=== PATIENT | female | born 1945 | race Caucasian/White ===

== ENCOUNTER → 2017-03-23 08:24 | Outpatient (CLI) | payer MEDICARE, OTHER, SELFPAY ==
[2017-03-13 08:24] VITALS: BP 150/88; BMI 48.2
== END ==
PROVIDERS: Family Provider Family Medicine; PCP Family Medicine; Visit Provider Surgery
DX: R92.8 Other abnormal and inconclusive findings on diagnostic imaging of breast (principal)

== ENCOUNTER → 2017-05-08 13:07 | Outpatient (CLI) | payer MEDICARE, OTHER, SELFPAY ==
[2017-05-08 08:29] LABS: Absolute Lymphocyte Count 5.17 X10^3/ul (0.83-4.51); Absolute Neutrophil Count 1.5 X10^3/uL (2.0-7.7); Basophil# 0.01 X10^3/uL; Basophil% 0.1 % (0-1); Eosinophil# 0.03 X10^3/uL; Eosinophils% 0.4 % (0-5); Lymphocyte # 5.17 X10^3/ul (4.0); Lymphocyte % 76.4 % (19-41); Mean Corp Hgb Conc 31.4 g/gl (32-36); Mean Corpuscular Hgb 30.4 pg (27.0-32.0); Mean Corpuscular Volume 96.7 fL (81-99); Mean Platelet Vol. 10.4 fl (6.2-12.0); Monocyte# 0.11 X10^3/uL; Monocyte% 1.6 % (0-10); Neutrophil # 1.45 X10^3/uL (2.7-7.7); Neutrophil % 21.5 % (47-70); Platelet Count 169 K/mm3 (150-450); RBC Distribution Width CV 17.3 % (11.6-14.6); RBC Distribution Width SD 58.3 fl (35.1-43.9); Red Blood Count 3.62 M/mm3 (4.2-5.4); White Blood Count 6.8 K/mm3 (4.4-11.0)
[2017-05-08 08:33] LABS: AST(SGOT) 28 U/L (15-37); Alanine Aminotransfer ALT/SGPT 35 U/L (13-56); Albumin, Serum 3.1 g/dL (3.2-5.0); Alkaline Phosphatase 72 U/L (45-117); Anion Gap 9 (5-15); BUN 22 mg/dL (7-18); BUN/Creat Ratio 27.6 RATIO (10-20); Calcium,Total 8.8 mg/dL (8.5-10.1); Chloride 102 mmol/L (98-107); EST Glomerular Filtration Rate 76 mL/min (>60); Est Glom Filt Rate - Afr Amer 92 mL/min (>60); Globulin 3.1 g/dL (2.2-4.2); Glucose 231 mg/dL (74-106); LDH 165 U/L (84-246); Potassium 3.7 mmol/L (3.5-5.1); Protein, Total 6.2 g/dL (6.4-8.2); Sodium Level 140 mmol/L (136-145)
[2017-05-08 08:42] LABS: Reactive Lymphocyte 1+
[2017-05-08 08:43] LABS: Polychromasia 1+
[2017-05-08 08:44] LABS: Anisocytosis 1+; Differential Indicated SCAN CRITERIA MET; POSITIVE COUNT NO; POSITIVE DIFFERENTIAL YES; POSITIVE MORPHOLOGY NO
[2017-05-08 09:23] LABS: Cholesterol 109 mg/dL (200); High Density Lipoprotein 31 mg/dL; Triglycerides 204 mg/dL; Very Low Density Lipoprotein 41 mg/dL (5-40)
[2017-05-08 16:06] LABS: Xtra Tube EP Lab EXTRA TUBE
== END ==
PROVIDERS: Family Provider Family Medicine; PCP Family Medicine; Visit Provider Internal Medicine Medical Oncology
DX: C50.911 Malignant neoplasm of unspecified site of right female breast (principal); Z85.42 Personal history of malignant neoplasm of other parts of uterus; E11.65 Type 2 diabetes mellitus with hyperglycemia; Z79.4 Long term (current) use of insulin
CPT/HCPCS: 80053; 80061; 83615; 85025

== ENCOUNTER → 2017-05-24 09:55 | Outpatient (CLI) | payer MEDICARE, OTHER, SELFPAY ==
--- NOTE | 2017-05-24 09:59 | NM_ITS ---
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 WHOLE BODY 99m Tc MDP RADIONUCLIDE BONE SCINTIGRAPHY COMPARISON: Previous whole body bone scintigraphy study dated 12/13/2016 FINDINGS: Following the intravenous administration of 26.0 mCi of 99m Tc MDP, whole body bone images reveal: 1. Increased radiopharmaceutical concentration is newly defined in the left proximal femoral diaphysis, right-left posterior ilium, persistently visualized in the right posterior eighth rib, distal right fibular diaphysis decreased on the current examination, redemonstrated in the thoracic and lumbar spine, left mid humeral diaphysis, the proximal-mid sternum, the right and left distal femoral diaphyses. 2. Facilitated uptake is defined in the bilateral shoulders, upper cervical spine posteriorly on the right, right and left knee articulations, both ankles, the left midfoot and forefoot bilaterally. 3. The remaining skeletal structures are scintigraphically unremarkable with normal-appearing renal images and urinary bladder activity identified. NM/Bone Scan Whole Body IMPRESSION: 1. The increased radiopharmaceutical concentration newly identified in the left proximal femur, right and left posterior ilium and redemonstrated and additional axial and appendicular skeletal foci is consistent with osseous metastatic disease. 2. 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 3. Overall compared to the previous pole body bone scintigraphy study dated 12/13/2016, there is both persistent and newly visualized appendicular and axial skeletal metastasis on the present examination. Electronically Signed: Salvador Garcia DO at 12:58 EDT Tel , Service support ,
--- NOTE | 2017-05-24 14:10 | ECHOD_ITS ---
Reason For Study: PRE CHEMO Procedure This was a 2D Doppler, Color Flow transthoracic echocardiogram. Exam performed in department. Left Ventricle Normal size and thickness. The estimated ejection fraction is 60 %. Stage 1 diastolic dysfunction. No regional wall motion abnormalities noted. Right Ventricle Normal size and thickness. Normal systolic function. Atria Normal left atrium. Normal right atrium. Normal atrial septum. Mitral Valve The mitral valve is structurally normal. No prolapse or stenosis seen. Tricuspid Valve Normal tricuspid valve. Unable to estimate RV systolic pressure/pulmonary artery pressure due to technically difficult study. Aortic Valve Trisinus/trileaflet aortic valve. Aortic sclerosis, no stenosis. Trivial aortic valve insufficiency. Pulmonic Valve Normal pulmonic valve. Great Vessels Normal aortic root. Normal arch. Normal inferior vena cava. Inferior vena cava collapse with sniff. Pericardium/Pleural No pericardial effusion. MMode/2D Measurements & Calculations LVIDd: 4.2 cm IVSd: 0.71 cm Ao root diam: 3.1 cm LVIDs: 3.0 cm LVPWd: 0.89 cm RVDd: 2.3 cm FS: 29.5 % LAV(MOD-bp): 32.9 ml LA A4 area: 10.7 cm2 RA A4 area: 6.9 cm2 LAV(MOD-bp) Indexed: 15.6 ml/m2 LAV(MOD-sp2): 44.1 ml LAV(MOD-sp4): 22.5 ml Doppler Measurements & Calculations MV E max ge: 73.5 cm/sec Lat Peak E' Ge: 11.0 cm/sec Med Peak E' Ge: 7.3 cm/sec MV A max ge: 86.4 cm/sec E/E' lat: 6.7 E/E' med: 10.1 MV E/A: 0.85 Ao V2 max: 159.0 cm/sec LV V1 max: 107.5 cm/sec Ao max P.1 mmHg LV V1 max P.7 mmHg Interpretation Summary The estimated ejection fraction is 60 %. Stage 1 diastolic dysfunction. Unable to estimate RV systolic pressure/pulmonary artery pressure due to technically difficult study. Compared to echo report dated 02/24/2017, no appreciable changes noted. The study was technically difficult. Ordering Physician: David Arango Referring Physician: SISSY KOHLER Performed By: Beba Miranda, ESTHERCS, RVT
== END ==
PROVIDERS: Family Provider Family Medicine; PCP Family Medicine; Visit Provider Internal Medicine Medical Oncology
DX: Z01.818 Encounter for other preprocedural examination (principal); C50.911 Malignant neoplasm of unspecified site of right female breast
CPT/HCPCS: 78306; 93306

== ENCOUNTER → 2017-06-05 09:28 | Outpatient (CLI) | payer MEDICARE, OTHER, SELFPAY ==
[2017-05-30 11:02] VITALS: BMI 46.8
--- NOTE | 2017-06-05 10:00 | PET_ITS ---
EXAMINATION: FDG PET CT INDICATIONS: A 71-year-old female with reported history of carcinoma of the breast, endometrial carcinoma and chronic lymphocytic leukemia presenting for restaging examination. COMPARISON EXAMINATION: Whole body bone scintigraphy study report dated 05/24/17. INDEX LESION SIZE SUV INTERPRETATION Appendicular, axial skeletal structures 3.1 (max) Fulfills quantitative criteria for viable osseous neoplasm TECHNIQUE: Following the intravenous administration of 14.8 mCi of F-18 deoxyglucose via the MediPort, multiplanar image acquisitions of the neck, chest, abdomen and pelvis to level of mid thigh, obtained at one hour post radiopharmaceutical administration contemporaneously interpreted with the current CT of the neck, chest, abdomen and pelvis to level of mid thigh, dated 06/05/17 via coregistration and whole body bone scintigraphy study report dated 05/24/17 reveal: SERUM GLUCOSE LEVEL: 172 mg/dl. HEIGHT: 62 inches. WEIGHT: 250 lbs. FINDINGS: 1. Increased glucose metabolism is defined in the proximal sternum, bilateral proximal and mid femoral diaphysis, right posterior ilium, eighth-eleventh thoracic and the second-third lumbar vertebrae demonstrating a calculated maximum standard uptake value of 3.1. Mixed sclerotic-lytic changes are noted in the majority of locations on review of CT of the neck-pelvis dated 06/05/17. 2. Normal physiologic distribution of the radiopharmaceutical is apparent in the hepatic (4.6) and splenic parenchyma, both renal units, bladder and visualized intestinal tract. There is uniform distribution of the radiopharmaceutical concentration compared on the cerebellar hemispheres and cerebral cortex. Diffuse intestinal tract activity is noted throughout all four quadrants of the abdominal-pelvic retroperitoneum, mesentery consistent with normal physiologic distribution of the radiopharmaceutical. Pertinent CT findings are as follows. CHEST: Ljhd-R-Leya-MediPort placement is noted. Atherosclerotic calcification is defined in the thoracic aorta without evidence of dilatation, aneurysm formation. Coronary arterial calcification is observed. Multiple calcifications are noted throughout the right breast. Right-left axillary soft tissue densities with fatty hilus formation are ametabolic. There are no parenchymal densities-nodules noted in the right-left hemithorax demonstrating discernible, quantitatively significant increased glucose metabolism. ABDOMEN AND PELVIS: Atherosclerotic calcification is defined in the abdominal aorta without evidence of dilatation, aneurysm formation. Pelvic arterial calcification is observed. The gallbladder is surgically absent. The uterus is not identified. Colonic diverticulosis is defined. Surgical clips are noted in the bilateral lower hemipelvis. Calcified and noncalcified densities manifest in the subcutaneous fat in the bilateral posterior hemipelvis are non-glucose avid. SKELETAL: Mixed sclerotic-lytic change is noted throughout the visualized appendicular, axial skeletal structures as previously described with varying degrees of multifocal quantitatively significant increased glucose metabolism. PET/PET/CT Tumor Base -Thigh Subs IMPRESSION: 1. ABNORMAL EXAMINATION INDICATIVE OF MALIGNANT VIABLE NEOPLASM. 2. Increased glucose concentration observed in the appendicular, axial skeletal structures fulfills quantitative criteria for viable osseous neoplasm. (Emerita et al, Clinical Nuclear Medicine 29:161, 2004). 3. The discrepancy between findings on radionuclide bone scintigraphy and FDG PET CT imaging are explained by FDG avidity for primarily lytic, mixed lytic-sclerotic osseous metastasis, whereas conventional bone scintigraphy, NaF whole body PET bone CT scintigraphy are typically associated with primary osteoblastic skeletal metastatic disease. (Andreas et al, Journal of Nuclear Medicine 33:1280, 2006). Electronic Signature Salvador Garcia D.O. Electronically Signed: Slavador Garcia DO at 23:50 EDT Tel , Service support ,
== END ==
PROVIDERS: Family Provider Family Medicine; PCP Family Medicine; Visit Provider Internal Medicine Medical Oncology
DX: C50.411 Malignant neoplasm of upper-outer quadrant of right female breast (principal); Z85.42 Personal history of malignant neoplasm of other parts of uterus
CPT/HCPCS: 78815; A9552

== ENCOUNTER → 2017-07-24 11:25 | Outpatient (CLI) | payer MEDICARE, OTHER, SELFPAY ==
[2017-05-30 11:02] VITALS: BMI 46.8
--- NOTE | 2017-07-24 11:30 | RAD_ITS ---
STUDY: X-RAY CHEST REASON FOR EXAM: Female, 71 years old. Cough, weakness, iron deficiency anemia, patient has Hx of breast carcinoma, endometrial carcinoma, and CLL TECHNIQUE: Frontal and lateral views of the chest. COMPARISON: CT chest DEC 21 2016 FINDINGS: Chronic appearing increased interstitial lung markings. There is a left Port-A-Cath and/or mediport in place. The tip is in the superior vena caval - atrial junction. There is an elevated right hemidiaphragm. There is no demonstrated pleural abnormality. Normal heart size. Normal mediastinum and clayton. Normal visualized pulmonary arteries. There is atherosclerotic calcification of the aortic arch with tortuosity. There are diffuse degenerative changes of the visualized thoracic spine. There is degenerative osteoarthritis of the bilateral shoulders. There is no demonstrated abnormality of the visualized soft tissue structures of the upper abdomen. RAD/Chest PA and Lateral IMPRESSION: There are no acute findings. Electronically Signed: Romero Diana MD at 20:48 EDT , Service support ,
== END ==
PROVIDERS: Family Provider Family Medicine; PCP Family Medicine; Visit Provider Internal Medicine Medical Oncology
DX: R05 Cough (principal); R53.1 Weakness; D50.9 Iron deficiency anemia, unspecified
CPT/HCPCS: 71046

== ENCOUNTER → 2017-08-11 07:24 | Outpatient (CLI) | payer MEDICARE, OTHER, SELFPAY ==
[2017-05-30 11:02] VITALS: BMI 46.8
--- NOTE | 2017-08-11 07:27 | NM_ITS ---
CLINICAL: 71-year-old female with reported history of carcinoma of the breast. WHOLE BODY 99m Tc MDP RADIONUCLIDE BONE SCINTIGRAPHY COMPARISON: Previous whole body bone scintigraphy study dated 05/24/2017 FINDINGS: Following the intravenous administration of approximately 25.0 mCi of 99m Tc MDP, whole body bone images reveal: 1. Multiple foci of increased radiopharmaceutical concentration are persistently visualized appendicular and axial skeletal structures with a decrease in the overall number and intensity of uptake and defined scintigraphic abnormalities. 2. Facilitated uptake is currently visualized in the medial tibial compartments of both knees, bilateral midfoot. 3. The remaining skeletal structures are scintigraphically unremarkable with normal-appearing renal images and urinary bladder activity identified. NM/Bone Scan Whole Body IMPRESSION: 1. The increase in radiopharmaceutical concentration redemonstrated in the appendicular and axial skeletal structures remains consistent with osteoblastic turnover associated with skeletal metastatic disease. The majority of sites demonstrate an interval decrease in the intensity of uptake on the present examination. 2. Degenerative arthritis is expressed in the bilateral knees, the right-left midfoot 3. There is interval resolution of additional previously defined skeletal abnormalities. 4. Overall compared to the previous whole body bone scintigraphy study dated 05/24/2017, there is continued visualization of appendicular and axial skeletal metastasis with a decrease in the total number as well as the intensity of uptake in persistently visualized abnormalities commensurate with interim improvement. Electronically Signed: Salvador Garcia DO at 12:56 EDT Tel , Service support ,
== END ==
PROVIDERS: Visit Provider Internal Medicine Medical Oncology
DX: C50.411 Malignant neoplasm of upper-outer quadrant of right female breast (principal); C79.51 Secondary malignant neoplasm of bone; R53.1 Weakness; R05 Cough
CPT/HCPCS: 78306

== ENCOUNTER → 2018-02-12 10:04 | Outpatient (CLI) | payer MEDICARE, OTHER, SELFPAY ==
[2017-05-30 11:02] VITALS: BMI 46.8
[2017-11-20 11:30] VITALS: BMI 47.2
--- NOTE | 2018-02-12 10:06 | NM_ITS ---
CLINICAL: 72-year-old female with reported history of primary breast carcinoma metastatic to bone. WHOLE BODY 99m Tc MDP RADIONUCLIDE BONE SCINTIGRAPHY COMPARISON: Previous whole body bone scintigraphy study dated 08/11/2017 FINDINGS: Following the intravenous administration of 26.6 mCi of 99m Tc MDP, whole body bone images reveal: 1. An increase in in the intensity of radiopharmaceutical concentration is defined in the right posterior eighth rib relative to the previous examination dated 08/11/2017. 2. Redefined multifocal increased tracer uptake is noted in the visualized appendicular and axial skeletal structures with minimal change in the overall number and intensity of uptake. 3. Facilitated uptake remains apparent in the bilateral knees and visualized left midfoot, presently demonstrated in the dorsal medial compartments of both ankles. 4. The remaining skeletal structures are scintigraphically unremarkable with normal-appearing renal images and urinary bladder activity identified. NM/Bone Scan Whole Body IMPRESSION: 1. The increase in radiopharmaceutical concentration multifocally demonstrated in the axial and appendicular skeletal structures remains consistent with osseous metastatic disease. There is an increase in the overall degree of osteoblastic turnover noted in the right posterior eighth rib. 2. Degenerative arthritis appears currently expressed in the bilateral ankles, right and left knees and left midfoot. 3. Overall compared to the previous whole body bone scintigraphy study dated 08/11/2017, there is an increase in the apparent degree of osteoblastic turnover limited to the right posterior eighth rib. If FLAIR phenomena and is a diagnostic consideration, repeat whole body bone scintigraphy in 9-12 weeks is recommended. (Ramírez et al, Radiology 175: 229, 1990). Electronically Signed: Salvador Garcia DO at 22:27 EST Tel , Service support ,
== END ==
PROVIDERS: Referring Provider Internal Medicine Medical Oncology; Visit Provider Internal Medicine Medical Oncology
DX: C79.51 Secondary malignant neoplasm of bone (principal); C50.911 Malignant neoplasm of unspecified site of right female breast
CPT/HCPCS: 78306

== ENCOUNTER → 2018-05-14 | Outpatient (CLI) | payer MEDICARE, OTHER, SELFPAY ==
[2017-05-30 11:02] VITALS: BMI 46.8
[2018-02-19 13:39] VITALS: BMI 46.3
--- NOTE | 2018-05-14 09:54 | NM_ITS ---
CLINICAL: 72-year-old female with reported history of carcinoma of the breast. WHOLE BODY 99m Tc MDP RADIONUCLIDE BONE SCINTIGRAPHY COMPARISON: Prior whole body bone scintigraphy study dated 02/12/2018 FINDINGS: Following the intravenous administration of 25.2 mCi of 99m Tc MDP, whole body bone images reveal: 1. Relatively unchanged increased radiopharmaceutical concentration is defined in the axial skeletal structures with minimal change in the overall number and anatomic localization of the scintigraphic abnormalities. 2. Enhanced tracer concentration remains apparent in the bilateral shoulders, right and left knees. 3. The remaining skeletal structures are scintigraphically unremarkable with normal-appearing renal images and urinary bladder activity identified. Facilitated radiotracer uptake remains apparent in the bilateral distal femoral diaphysis. NM/Bone Scan Whole Body IMPRESSION: 1. The increase in radiopharmaceutical concentration redemonstrated in the axial skeleton remains most consistent with osseous metastatic disease. Bilateral distal femoral diaphyseal increased uptake may be further investigated with plain film radiography. 2. Facilitated radiotracer distribution currently demonstrated in the bilateral shoulders, right and left knees is commensurate with degenerative arthritis. 3. Overall compared to the previous whole body bone scintigraphy study dated 02/12/2018, there is no significant interval change. Electronically Signed: Salvador Garcia DO at 23:39 EDT Tel , Service support ,
== END | disposition home or self-care (01) ==
LOC: NM 09:52
PROVIDERS: Family Provider Family Medicine; PCP Family Medicine; Referring Provider Internal Medicine Medical Oncology; Visit Provider Internal Medicine Medical Oncology
DX: C50.911 Malignant neoplasm of unspecified site of right female breast (principal); C79.51 Secondary malignant neoplasm of bone
CPT/HCPCS: 78306

== ENCOUNTER → 2018-05-23 13:53 | Outpatient (CLI) | payer MEDICARE, OTHER, SELFPAY ==
[2017-05-30 11:02] VITALS: BMI 46.8
[2018-05-21 13:33] VITALS: BMI 46.4
--- NOTE | 2018-05-23 13:56 | BI_ITS ---
MAMMOGRAPHY - BILATERAL DIAGNOSTIC REASON FOR EXAM: Female, 72 years old. Prior right lumpectomy and radiation and chemotherapy. Palpable lump at the lumpectomy scar in the right breast. The overlying skin is red and swollen. PERTINENT HISTORY: Personal history of breast cancer. TECHNIQUE: Digital bilateral breast logan (3D mammographic acquisition) in the CC and MLO projections. 2-D mediolateral oblique (MLO) and craniocaudad (CC) views of both breasts were obtained. CAD: Full Field Digital Mammography with Computer Added Detection was performed. COMPARISON: Comparison is made with prior study dated genera 2017 and October 09, 2012. FINDINGS: Breast Composition: There are scattered areas of fibroglandular density. There is persistent deformity and architectural distortion in the deep upper lateral portion of the right breast. This corresponds to the lumpectomy site. The overlying skin is thickened. This has become thicker as compared to prior study. The calcifications have increased in number and size as compared to prior study. Calcifications are also seen in the right axillary region. A praveen catheter is seen in the left axillary region. No other significant abnormalities are identified. BI/DIAG MAMM W/CAD, BILAT IMPRESSION: Since prior study, the overlying skin of the right breast as become thickened. Increasing microcalcifications in the right breast as well as calcifications in the right axillary region. Stable postoperative scarring in the upper lateral portion of the right breast. Correlation with ultrasound is recommended. ASSESSMENT CATEGORY: BIRADS Category 0: Incomplete. Need additional imaging evaluation. A letter regarding these results will be sent to the patient by the facility within 30 days. Approximately 10% of breast cancers are not detected by mammography. A normal mammogram should not delay biopsy of a clinically suspicious abnormality. Electronically Signed: José Miguel Davila, at 15:22 EDT , Service support ,
--- NOTE | 2018-05-23 13:56 | US_ITS ---
STUDY: ULTRASOUND BREAST - RIGHT REASON FOR EXAM: Female, 72 years old. Palpable lump in the right breast. The patient is status post right lumpectomy and radiation. TECHNIQUE: Axial and longitudinal images of the RIGHT breast were performed with a high resolution ultrasound transducer. COMPARISON: Comparison is made with prior mammogram done earlier today. FINDINGS: RIGHT Breast: The palpable abnormality corresponds to a 5 mm x 11 mm x 12 mm irregular hypoechoic nodule with posterior acoustical shadowing. A biopsy is recommended for further evaluation. US/Breast Limited Unilateral IMPRESSION: The abnormality corresponds to a 5 mm x 11 mm x 12 mm irregular hypoechoic nodule with posterior acoustical shadowing. This is at the 11:00 position of the breast at 3 sinus from the nipple. A biopsy is recommended. ASSESSMENT CATEGORY: BIRADS Category 4: Suspicious - Biopsy Should Be Considered. A letter regarding these results will be sent to the patient by the facility within 30 days. Electronically Signed: José Miguel Davila, at 15:23 EDT , Service support ,
== END ==
PROVIDERS: Family Provider Family Medicine; PCP Family Medicine; Referring Provider Internal Medicine Medical Oncology; Visit Provider Internal Medicine Medical Oncology
DX: Z85.3 Personal history of malignant neoplasm of breast (principal); R92.8 Other abnormal and inconclusive findings on diagnostic imaging of breast
CPT/HCPCS: 76642; 77066

== ENCOUNTER → 2018-06-19 13:29 | Outpatient (CLI) | payer MEDICARE, OTHER, SELFPAY ==
[2017-05-30 11:02] VITALS: BMI 46.8
[2018-06-01 08:27] VITALS: BMI 46.4
--- NOTE | 2018-06-19 13:32 | US_ITS ---
STUDY: ULTRASOUND BREAST - RIGHT REASON FOR EXAM: Female, 72 years old. Ultrasound guided right breast biopsy. TECHNIQUE: Axial and longitudinal images of the RIGHT breast were performed with a high resolution ultrasound transducer. COMPARISON: Comparison is made with prior ultrasound of the breasts dated May 23, 2018. FINDINGS: RIGHT Breast: Under direct sonographic guidance, the surgeon performed 3 core biopsies of the 5 mm x 7 mm x 1.1 cm hypoechoic irregular nodule at the 11:00 position of the breast at 3 cm from the nipple. US/US Breast Biopsy 1st Lesion IMPRESSION: Successful ultrasound-guided biopsy of the suspicious nodule at the 11:00 position of the breast at 3 cm from the nipple. ASSESSMENT CATEGORY: BIRADS Category 4: Suspicious - Biopsy Should Be Considered. A letter regarding these results will be sent to the patient by the facility within 30 days. Electronically Signed: José Miguel Davila, at 15:25 EDT , Service support ,
--- NOTE | 2018-06-19 14:00 | BRBX_PTH ---
PATIENT: JESSICA CHU LOC: [facility] U#:[id number] AGE/SX: 79/F ROOM: RE06/19/[address]: Dr. Woody Gaston MD : 1945 BED: DIS: SPEC #: [id number] RECD: 06/19/18 14:34 STATUS: MEHREEN TRINI #: [id number] MARIBEL: 06/19/18 14:[address]: Woody Gsaton DEPT: SURGICAL PATHOLOGY RECD BY: Harjinder Gan ENTERED: 06/20/18 10:46 SP TYPE: BREAST BX PATRICE DR: Dr. Camelia Hess DO Tissues: Right breast, NOS Procedures: Surgery Specimen Level IV HEADER OPERATION: Right breast biopsy, ultrasound-guided PRE-OP DIAGNOSIS: Right breast mass TISSUE SUBMITTED: Right breast 11 o'clock, 3 cm from nipple, previous lumpectomy ISCHEMIC TIME: 1 minute FIXATION TIME: 29.5 hours MICROSCOPIC DIAGNOSIS Right breast mass, ultrasound-guided core biopsy: Densely collagenized breast parenchyma. No evidence of malignancy. AM:cheryl 06/21/18 MICROSCOPIC DESCRIPTION Slides are reviewed. GROSS DESCRIPTION Received in fixative is one container labeled with the patient's name and designated right breast. The specimen consists of multiple irregular fragments of light olivares soft tissue that in aggregate measure 1.5 x 0.5 x 0.1 cm. The specimen is totally submitted in one cassette. / AM:cheryl 06/20/18 TC:5 CPT: 07421
--- NOTE | 2018-06-19 14:15 | PCM.HP.BLA ---
History and Physical Date of Admission: 06/19/18 Intake Vital Signs 06/01/18 Body Mass Index (BMI) 46.4 06/01/18 Height 5 ft 2 in 06/01/18 Weight: 245 lb 06/01/18 Body Mass Index (BMI) 44.8 06/01/18 Respiratory Rate 16 Intake Visit Reasons: R BRST MASS, U/S @ MAM[facility] [place] Chief Complaint: F/u for metastatic breast cancer management/U/S results. Panelbeater Required: No Is patient in pain?: No Allergies lovastatin Adverse Reaction (Verified 06/01/18 08:27) MUSCLE CRAMPS IN LEGS nickel [Nickel] Adverse Reaction (Verified 06/01/18 08:27) Rash Medications Aspirin [Aspirin, Baby] 81 mg PO DAILY@0800 07/30/13 [History Confirmed 06/01/18] Meclizine HCl [Antivert] 12.5 mg PO DAILY PRN PRN 07/30/13 [History Confirmed 06/01/18] Metoprolol(XL)Succ [Toprol Xl (Beta Elle)] 100 mg PO DAILY 07/30/13 [History Confirmed 06/01/18] Cholecalciferol (VIT D3) [Vitamin D3] 5,000 unit PO DAILY 03/24/14 [History Confirmed 06/01/18] Cyanocobalamin (Vitamin B-12) [Vitamin B-12] 3,000 mcg PO DAILY 03/24/14 [History Confirmed 06/01/18] Enalapril Maleate [Vasotec] 20 mg PO DAILY 03/24/14 [History Confirmed 06/01/18] Rosuvastatin Calcium [Crestor] 10 mg PO QODAY 03/24/14 [History Confirmed 06/01/18] Levothyroxine [Synthroid] 100 mcg PO DAILY 09/08/14 [History Confirmed 06/01/18] Multivitamins,Therapeutic [Multivitamin] 1 tab PO DAILY 09/08/14 [History Confirmed 06/01/18] Omeprazole [Prilosec] 20 mg PO QODAY 01/05/15 [History Confirmed 06/01/18] Insulin Detemir [Levemir (BKC)] 50 units SC DAILY 10/03/16 [History Confirmed 06/01/18] Magnesium Oxide [Mag-Ox 400] 400 mg PO DAILY 30 Days #30 tab 10/24/17 [Rx Confirmed 06/01/18] Hydrocodone Bitart/Apap 5-325 [[place] 5/325] 1 tab PO Q6H PRN PRN #90 tab 02/19/18 [Rx Confirmed 06/01/18] Tamoxifen Citrate [Nolvadex] 20 mg PO BID 30 Days #60 tab 05/28/18 [Rx Confirmed 06/01/18] PFSH Medical History Diabetes (Acute) H/O: hysterectomy (Acute) Hypercholesteremia (Acute) H/O: hysterectomy (Acute) History of breast cancer (Acute) Sleep apnea (Acute) Vertigo (Acute) left leg fx repair (Acute) Surgical History History of cataract extraction (Acute) H/O arthroscopy of left knee (Acute) H/O breast surgery (Acute) Hx of cholecystectomy (Acute) S/P lumpectomy, right breast (Acute) Family History Father Heart disease Hypertension Mother Rheumatoid arthritis Skin cancer Brother Melanoma Social History Smoking Status: Never smoker alcohol intake: never substance use type: does not use HPI HPI HPI: JESSICA CHU, is a 72 F who presents to the office today for HPI HPI Surgical H&P: Yes HPI: JESSICA CHU, is a 72 F who presents to the office today for palpable area on her right breast. Patient is noticed this first last several months. She has a known history of right breast cancer which was diagnosed in 2008 subsequently underwent a lumpectomy which was followed up with an axillary node dissection as well as chemotherapy and radiation. This was completed in April 2009 he subsequently had metastatic disease which was diagnosed in 2009. Ultrasound confirmed the lesion which is located at the 11 o'clock position approximately 3 cm from the nipple areolar complex. Approximately 5 mm x 11 mm x 12 mm and was regarded as a hypoechoic nodule with irregularity. A biopsy was recommended. ROS General General: Yes fatigue and breast cancer; no weight change, appetite, colon cancer or weakness HEENT HEENT: Yes difficulty swallowing, eye injury, eye surgery, swollen glands and hoarseness Endo Endocrine: Yes diabetes mellitus; no thyroid disease, thyroid cancer, Hair loss, heat intolerance or cold intolerance Skin Skin: No rash or changing moles Breast Breast: No left breast lump, right breast lump, nipple discharge, breast pain, abnormal mammogram, abnormal US or breast enlargement Musc Musculoskeletal: Yes arthritis; no back problems, rheumatoid arthritis, gout or joint pain Cardio Cardiovascular: Yes high blood pressure; no murmur, pacemaker, heart disease, atrial fibrillation, heart attack, heart stent, palpitations, shortness of breat with exertion or chest pain Psych Psychiatric: No depression, anxiety or hearing voices Resp Respiratory: No shortness of breath, No sleep apnea, No cough, No COPD, No asthma, No emphysema, No wheezing Gastro Gastrointestinal: No abdominal pain, No nausea or vomiting, No diarrhea, No constipation, No blood in stool, No acid reflux, No hemorrhoids, No ulcers, No gallbladder problem, No black,tarry stools Yehuda Hematologic: No blood thinners, No blood disorders, No bleeding, No anemia, No blood clots Neuro Neurologic: No system reviewed and no additional complaints, except as docu, No as per HPI, No abnormal walking, No abnormal hearing, No abnormal movements, No abnormal speech, No behavioral changes, No burning sensations, No confusion, No seizure-like activity, No unsteadiness, No dizziness, No localized weakness, No frequent falls, No headache(s), No lack of coordination, No loss of vision, No memory loss, No numbness, No other visual disturbances, No radiating pain, No restless legs, No sensory deficit, No fainting, No tingling, No tremor(s), No weakness, No other Exam [facility] Head: normal to inspection, normocephalic, atraumatic Mouth: oropharynx normal, moist mucous membranes Eyes General: appearance normal, both eyes and all related structures Sclera: sclerae normal Neck Neck: trachea midline, no lymphadenopathy noted Neck mass: No Thyroid: thyroid normal Lymphatic: no lymphadenopathy noted Chest Breast inspection: normal inspection of the breasts Breast Palpation: No nipple discharge Other: Inspection of the right breast reveals a lateral incision. There is palpable area within the scar line at the 11 o'clock position 3 cm away it feels firm but it does not feel overtly hard. There is no signs of cellulitis within the breast but the breast itself is firmer than normal secondary to radiation changes which are visibly seen on the skin. Axillary exam is negative on that side. Supraclavicular exam is negative on the right side. Left breast normal palpable breast no palpable abnormalities are identified axillary exam is negative as well as the supraclavicular exam Resp Other: Respiratory Exam: Deferred Cardio Heart Sounds: no murmurs Other: Cardiac Exam: Deferred GI Other: GI Exam: Deferred Other: Rectal Exam: Deferred Extrem Other: Extremity Exam: Deferred Assessment & Plan Problems 1. Abnormal mammogram of right breast R92.8 Plan I have discussed above with the patient. I have recommended ultrasound guided needle core breast biopsy. I have described the procedure to the patient. I have discussed with the patient that sometimes the ultrasound lesion may be artifact and is user dependent and therefore prior to undergoing the procedure, the patient will have a definitive US to ensure that the lesion is truly present and is not artifact. A marker clip will be placed to identify the location. Patient has been counseled to the risks/benefits of the procedure. I have explained the risks of the surgery, including but not limited to: infection, bleeding, injury to any blood vessels/nerves, scar tissue, missing the lesion, further surgery, etc. - the patient understands and agrees to proceed. I have answered all of the patient's questions to her satisfaction and she has no further questions. Coding Level of Care Code Off vis,new,level 3 Diagnoses Abnormal mammogram of right breast R92.8 I have re-examined the patient. There are no clinical changes since date of exam.
--- NOTE | 2018-06-19 14:16 | PCM.OPRPT ---
Problem List (1) Abnormal mammogram of right breast Status: Acute Report of Operation Date of Procedure: 06/19/18 Pre-Operative Diagnosis: Abnormal mammogram right breast Post-Operative Diagnosis: Same Surgery/Procedure Performed:: Ultrasound-guided needle core biopsy of right breast Type of Anesthesia:: Local Description of Procedure: Patient was brought into the ultrasound unit. The right breast was ultrasound in the upper outer quadrant. The lesion was identified. The skin was prepped with chlorhexidine. 1% lidocaine plain was injected. Local was injected down to the lesion. A skin julien was made. Under ultrasound guidance 3 needle core biopsies of this area were obtained. Under ultrasound guidance a small titanium clip was placed. Steri-Strips are applied sterile dressings were applied and the patient tolerated the procedure well. - Admit VTE Documentation VTE Present on Admission: No VTE Mechan Device Prophylaxis: None VTE Pharm Prophylaxis ordered?: No Reason prophylaxis not ordered:: Treatment Not Indicated
== END ==
PROVIDERS: Referring Provider Surgery; Visit Provider Surgery
DX: R92.8 Other abnormal and inconclusive findings on diagnostic imaging of breast (principal); Z85.3 Personal history of malignant neoplasm of breast; E78.00 Pure hypercholesterolemia, unspecified; E11.9 Type 2 diabetes mellitus without complications; Z79.4 Long term (current) use of insulin; Z79.82 Long term (current) use of aspirin; Z79.899 Other long term (current) drug therapy
CPT/HCPCS: 19083; 88305

== ENCOUNTER → 2019-01-23 09:10 | Outpatient (CLI) | payer MEDICARE, OTHER, SELFPAY ==
[2017-05-30 11:02] VITALS: BMI 46.8
[2018-12-27 13:16] VITALS: BMI 45.8
--- NOTE | 2019-01-23 09:11 | NM_ITS ---
CLINICAL: 73-year-old female with reported history of carcinoma of the breast. WHOLE BODY 99m Tc MDP RADIONUCLIDE BONE SCINTIGRAPHY COMPARISON: Previous whole body bone scintigraphy study dated 05/14/2018 FINDINGS: Following the intravenous administration of 24.0 mCi of 99m Tc MDP, whole body bone images reveal: 1. Newly identified increased radiopharmaceutical concentration appears evident in the right posterior lateral seventh-eighth ribs, persistently defined in the eighth-12th thoracic vertebra, fourth lumbar vertebra anteriorly. 2. Focally increased tracer distribution is presently visualized in the left mid foot, left ankle, fifth lumbar vertebra, bilateral knees. 3. The remaining skeletal structures are scintigraphically unremarkable with normal-appearing renal images and urinary bladder activity identified. NM/Bone Scan Whole Body IMPRESSION: 1. Facilitated radiotracer uptake presently defined in the right posterior-lateral seventh and eighth ribs, the mid to lower thoracic spine and fourth lumbar vertebra anteriorly are most consistent with skeletal metastatic disease. 2. Degenerative arthritis appears expressed in the fifth lumbar vertebra, left mid foot, left ankle and right and left knee articulations. 3. Overall compared to the previous whole body bone scintigraphy study dated 05/14/2018, there is no significant interval change. Newly identified increased uptake noted in the right posterior lateral seventh and eighth ribs may be further investigated with plain film radiography if clinically indicated. Electronically Signed: Salvador Garcia DO at 22:08 EST Tel , Service support ,
--- NOTE | 2019-01-23 09:20 | RAD_ITS ---
STUDY: X-RAY - LUMBAR SPINE REASON FOR EXAM: Female, 73 years old. Back pain TECHNIQUE: 5 view(s) of the lumbar spine were obtained. COMPARISON: None FINDINGS: Normal lumbar lordosis. There is no substantial scoliosis. There is a normal alignment of the vertebrae. There is generalized demineralization of the vertebral bodies. Disc heights are relatively preserved. There is mild facet arthropathy in the lower lumbar levels. Surgical clips are detected in the right upper abdomen as well as in the pelvis. Axial calcification of the central left upper abdomen may represent splenic artery aneurysm. Atherosclerotic calcifications are noted. There are injection granulomata of the buttocks. RAD/L/S Spine Min 4 Views IMPRESSION: 1. No compression fracture 2. Osteopenia. 3. Facet arthropathy. 4. Suspect splenic artery aneurysm. Electronically Signed: Kole Carl MD ([place]) at 22:33 EST , Service support ,
--- NOTE | 2019-01-23 09:20 | RAD_ITS ---
STUDY: X-RAY - PELVIS REASON FOR EXAM: Female, 73 years old. Pain. History of bone cancer. History of breast cancer. TECHNIQUE: One view of the pelvis was obtained. COMPARISON: Whole-body bone scan May 14, 2018. Pelvis May 29, 2017. FINDINGS: There is a non-specific bowel gas pattern. Normal visualized soft tissue structures. Normal bilateral iliac wings, sacroiliac joints and visualized sacrum. Normal visualized bilateral superior and inferior pubic rami. Normal pubic symphysis. Normal ischial tuberosities. Normal visualized right femoral head. Normal right acetabulum. Normal right hip joint. Normal visualized left femoral head. Normal left acetabulum. Normal left hip joint. Degenerative changes lower lumbar spine stable since the prior study. Surgical clips in the pelvis. RAD/Pelvis 1 or 2 Views IMPRESSION: Stable pelvis. No evidence of bony metastases. Electronically Signed: Ryan Smith MD at 5:17 EST , Service support ,
--- NOTE | 2019-01-23 09:20 | RAD_ITS ---
STUDY: X-RAY - THORACIC SPINE REASON FOR EXAM: Female, 73 years old. Back pain TECHNIQUE: 3 view(s) of the thoracic spine were obtained. COMPARISON: None. FINDINGS: There is an increase in the normal thoracic kyphosis. There is no substantial scoliosis. There is demineralization of the thoracic spine with endplate spondylosis. There is multilevel disc space narrowing of the thoracic spine. No compression fracture. Left subclavian catheter noted with pericatheter calcification. Peripherally sclerotic eggshell type calcification central left upper abdomen could represent a visceral aneurysm such as splenic artery. RAD/Thoracic Spine 3 Views IMPRESSION: 1. Multilevel degenerative disc disease. 2. Possible splenic artery aneurysm Electronically Signed: Kole Carl MD ([place]) at 22:30 EST , Service support ,
== END ==
PROVIDERS: Family Provider Family Medicine; PCP Family Medicine; Referring Provider Internal Medicine Medical Oncology; Visit Provider Internal Medicine Medical Oncology
DX: C50.911 Malignant neoplasm of unspecified site of right female breast (principal); C79.51 Secondary malignant neoplasm of bone
CPT/HCPCS: 72072; 72110; 72170; 78306

== ENCOUNTER 2019-10-06 13:39 | Inpatient (IN) | payer MEDICARE, OTHER, SELFPAY ==
[2017-05-30 11:02] VITALS: BMI 46.8
[2019-06-26 10:03] VITALS: BMI 44.2
[2019-10-06] VITALS (10 sets, daily range): BP systolic 100–141; BP diastolic 55–73; PULSE 76–89; RESP 18–26; TEMP 36.3–36.9; O2SAT 95–97; BMI 44.1; BMI 43.0
--- NOTE | 2019-10-06 14:16 | RAD_ITS ---
STUDY: X-RAY CHEST REASON FOR EXAM: Female, 73 years old. Dizziness x1 week, history of bone cancer. TECHNIQUE: Frontal view of the chest COMPARISON: July 24 2017 FINDINGS: Infusion catheter is present in the left upper chest, entering the subclavian and terminating with its tip in the lower SVC. The lungs are clear and expanded. There is no demonstrated pleural abnormality. Normal size heart. Normal mediastinum and clayton. Normal visualized pulmonary arteries. Normal visualized aortic arch and descending thoracic aorta. Normal visualized thoracic spine. Normal visualized ribs, clavicles, and shoulders. There is no demonstrated abnormality of the visualized soft tissue structures of the upper abdomen. RAD/Chest 1 View (Portable) IMPRESSION: Normal x-ray examination of the chest. Electronically Signed: Dez Parks, at 16:07 EDT Tel , Service support ,
--- NOTE | 2019-10-06 14:16 | CT_ITS ---
STUDY: CT BRAIN WITHOUT CONTRAST REASON FOR EXAM: Female, 73 years old. Vertigo for 2 weeks, history of breast cancer with osseous metastasis, hypertension RADIATION DOSAGE (If Supplied By Facility): CTDIvol = ( 44.99 ) mGy, DLP = ( 745.49 ) mGycm TECHNIQUE: Transaxial CT imaging of the brain was performed without administration of intravenous contrast material. Individualized dose optimization techniques were used for this CT. COMPARISON: August 05 2016 FINDINGS: Evaluation is limited due to lack of IV contrast. Assessment of intracranial neoplastic/metastatic disease is limited. There is no acute intracranial hemorrhage, extra parenchymal fluid collections, hydrocephalus or herniation. There are scattered subcortical small ill-defined white matter hypodensities, incompletely characterized. The skull is intact without destructive lesions. CT/Brain/Head without Contrast IMPRESSION: 1. No acute findings. 2. White matter hypodensities, possibly chronic ischemic etiology. If evaluation for intracranial metastatic disease is desired MR or CT with contrast are recommended. Electronically Signed: Dez Parks, at 15:34 EDT Tel , Service support ,
--- NOTE | 2019-10-06 14:17 | EKG12_ITS ---
Test Reason : Blood Pressure : / mmHG Vent. Rate : 080 BPM Atrial Rate : 080 BPM P-R Int : 126 ms QRS Dur : 082 ms QT Int : 408 ms P-R-T Axes : 061 017 026 degrees QTc Int : 470 ms Normal sinus rhythm Normal ECG Confirmed by FRANCISCO PEREA, ROSHAN ([id number]), fashion editor SHAUN WALDEN ([id number]) on 10/10/2019 11:24:43 AM Referred By: BOB Confirmed By:ROSHAN SINGH MD
--- NOTE | 2019-10-06 14:18 | RAD_ITS ---
STUDY: X-RAY - THORACIC SPINE REASON FOR EXAM: Female, 73 years old. Dizziness x1 week, history of bone cancer. TECHNIQUE: 3 view(s) of the thoracic spine were obtained. COMPARISON: None. FINDINGS: Normal kyphosis of the thoracic spine. There is no substantial scoliosis. Normal thoracic vertebrae and endplates. Normal disc space heights. The soft tissue structures are unremarkable. Medical cystectomy clips. There is left paraspinal rounded shell-like calcification, unclear etiology. RAD/Thoracic Spine 2 Views IMPRESSION: Unremarkable plain films of the thoracic spine. Please note that in a patient with known bone cancer plain films are not sufficient for definitive diagnosis. Refer to advanced modalities such as CT or MR. Electronically Signed: Dez Parks, at 16:09 EDT Tel , Service support ,
--- NOTE | 2019-10-06 14:18 | RAD_ITS ---
STUDY: X-RAY - LUMBAR SPINE REASON FOR EXAM: Female, 73 years old. Dizziness x1 week, history of bone cancer. TECHNIQUE: 3 view(s) of the lumbar spine were obtained. COMPARISON: None FINDINGS: Normal lumbar lordosis. There is no substantial scoliosis. There is a normal alignment of the vertebrae. Mineralization is decreased. Normal vertebral bodies and endplates. Normal disc space heights. The soft tissue structures are unremarkable. There are cholecystectomy and pelvic lymph node dissection clips. RAD/Lumbar Spine 2 or 3 Views IMPRESSION: Unremarkable plain films of the lumbar spine. If definitive osseous imaging is desired refer to advanced modalities such as CT or MR. Osteoporosis. Electronically Signed: Dez Parks, at 16:10 EDT Tel , Service support ,
--- NOTE | 2019-10-06 14:18 | RAD_ITS ---
STUDY: X-RAY - PELVIS REASON FOR EXAM: Female, 73 years old. Dizziness for one week, history of bone cancer TECHNIQUE: One view of the pelvis was obtained. COMPARISON: January 23 2019 whole-body bone scan FINDINGS: The bones of the pelvis are intact and located. There are pelvic lymph node dissection clips. RAD/Pelvis 1 or 2 Views IMPRESSION: Normal x-ray examination of the pelvis. Electronically Signed: Dez Parks, at 16:11 EDT Tel , Service support ,
[2019-10-06 14:59] LABS: Absolute Lymphocyte Count 1.26 X10^3/uL (0.83-4.51); Absolute Neutrophil Count 1.7 X10^3/uL (2.0-7.7); Basophil# 0.01 X10^3/uL; Basophil% 0.3 % (0-1); Eosinophil# 0.02 X10^3/uL; Eosinophils% 0.6 % (0-5); Hematocrit 28.5 % (37-47); Hemoglobin 9.2 g/dL (12.0-15.0); Lymphocyte # 1.26 X10^3/ul (4.0); Lymphocyte % 38.9 % (19-41); Mean Corp Hgb Conc 32.3 g/dL (32-36); Mean Corpuscular Volume 102.2 fL (81-99); Mean Platelet Vol. 10.2 fl (6.2-12.0); Monocyte# 0.21 X10^3/uL; Monocyte% 6.5 % (0-10); NRBC Flagged by Analyzer 0 % (0-5); Neutrophil # 1.73 X10^3/uL (2.7-7.7); Neutrophil % 53.4 % (47-70); POSITIVE MORPHOLOGY YES; Platelet Count 107 K/mm3 (150-450); RBC Distribution Width CV 14.8 % (11.6-14.6); RBC Distribution Width SD 55.3 fl (35.1-43.9); Red Blood Count 2.79 M/mm3 (4.2-5.4); White Blood Count 3.2 K/mm3 (4.4-11.0)
[2019-10-06 15:01] LABS: Differential Indicated SCAN CRITERIA MET
[2019-10-06] MEDS: diazePAM 5 MG Tablet PO (15:03)
[2019-10-06 15:11] LABS: Mucous, Urine 0 SEEN /hpf (<or=2+); Red Blood Cells-Urine 0 SEEN /hpf (0-5); Squamous Epithelial Cells - UA 0 SEEN /hpf (5-10)
[2019-10-06 15:14] LABS: Anion Gap 6 (5-15); BUN 23 mg/dL (7-18); BUN/Creat Ratio 27.3 RATIO (10-20); Calcium,Total 8.6 mg/dL (8.5-10.1); Chloride 100 mmol/L (98-107); Creatinine, Serum 0.84 mg/dL (0.55-1.02); EST Glomerular Filtration Rate 71 mL/min (>60); Est Glom Filt Rate - Afr Amer 86 mL/min (>60); Estimated Creatinine Clearance 48.58 ml/min; Glucose 253 mg/dL (74-106); Potassium 3.8 mmol/L (3.5-5.1); Sodium Level 134 mmol/L (136-145)
[2019-10-06 15:19] LABS: Color, Urine Yellow (Yellow); Glucose, Dipstick 50 mg/dl (Normal); Ketone-Dipstick 5 mg/dl (Negative); Leukocyte Esterase-Dipstick 500 /ul (Negative); Nitrite-Dipstick Negative (Negative); Occult Blood-Urine 50 /ul (Negative); Protein-Dipstick 100 mg/dl (Negative); Specific Gravity, Urine 1.015 (1.002-1.030); Urine Bilirubin Dipstick Negative (Negative); Urine Clarity Cloudy (Clear); Urine Urobilinogen Normal (Normal)
--- NOTE | 2019-10-06 15:26 | ED.DCSUM_ITS ---
History of Present Illness Chief Complaint: Dizziness Informant: Patient Onset: Days Context: Gradual Onset Timing: Continuous Narrative: Patient is a 73-year-old female with longstanding history of vertigo presenting with worsening vertigo and unsteadiness. Patient states her symptoms started 5 days ago. She had 2 falls because of her dizziness, the most recent fall was on Monday, 4 days ago. Patient denies any head injury but notes since the fall she is at increased pain in her back as well as her hips bilaterally. She has a history of breast cancer with bony metastasis and is currently only on tamoxifen . She is worried she might of damage something in the falls. She is also concerned because she lives home alone. Patient Nuys any vision changes, weakness, speech changes or numbness. She is been taking meclizine with no relief of her symptoms. Patient know she has had some urinary symptoms for the past week but is waiting on her urinalysis results as she had to mail them in. Patient states her vertigo is never been this bad. It seems to be worse with movements and exertion but not particularly worse with movement of her head. No other complaints at this time. Past Medical History - Allergies and Home Meds Allergies/Adverse Reactions: Allergies lovastatin Adverse Reaction (Verified 10/06/19 13:41) MUSCLE CRAMPS IN LEGS nickel [Nickel] Adverse Reaction (Verified 10/06/19 13:41) Rash Past Medical History: - - Diabetes, history of breast cancer with bony metastasis, vertigo, obstructive sleep apnea Surgical History: cholecystectomy, hysterectomy - Lumpectomy of the right breast Lives: Alone Smoking Status: Never smoker - Family History Paternal Family History: Family History (Last Reviewed 06/26/19 @ 10:02 by Adeline Meade) Father Heart disease Hypertension Mother Rheumatoid arthritis Skin cancer Brother Melanoma Family History: Reports: Heart Disease - from massive heart attack at age 62., Hypertension Maternal Family History: Family History (Last Reviewed 06/26/19 @ 10:02 by Adeline Meade) Father Heart disease Hypertension Mother Rheumatoid arthritis Skin cancer Brother Melanoma Family History: Reports: Cancer - skin Review of Systems General: Denies: Chills, Fever, Sweats Eyes: Denies: Visual changes - bilaterally, Diplopia ENT: Denies: Rhinorrhea, Sore throat Cardiovascular: Denies: Chest pain, Palpitations Respiratory: Denies: Dyspnea, Cough, Dyspnea on exertion Gastrointestinal: Denies: Abdominal pain, Nausea, Vomiting, Diarrhea, Melena, Hematochezia Genitourinary: Denies: Dysuria, Hematuria, Frequency Musculoskeletal: Reports: Back pain, Extremity Pain - Bilateral hips Skin: Denies: Rash, Wounds Neurological: Reports: Weakness - Generalized, - - Dizziness/vertigo. Denies: Headache, Numbness Physical Exam Vital Signs/Narrative: Vital Signs Temp Pulse Pulse Pulse Pulse Resp BP 10/06/19 14:41 79 82 89 10/06/19 13:40 97.4 F L 89 18 116/70 BP BP BP Pulse Ox 10/06/19 14:41 120/64 130/68 H 126/73 H 10/06/19 13:40 95 Inital Vital Signs reviewed: Yes General: Well nourished, Well developed, No Acute Distress Head: Normocephalic, Atraumatic Eyes: Perrl, EOMI, - - No reproducible nystagmus on exam. Negative for: Pale conjunctiva ENT: Moist mucous membranes, No rhinorrhea, TM's clear Neck: Supple, Nontender, No JVD Cardiovascular: Regular rate, Regular rhythm, No murmurs Respiratory: No distress, CTA bilaterally, Chest nontender Abdomen: Soft, Nontender, Nondistended, Normal bowel sounds Back: Nontender, Normal Inspection. Negative for: CVA tenderness, Spinal tenderness Extremities: Nontender, No edema, - - Patient states she has pain in her bilateral hips however she does not have pain with range of motion of the hips or logroll. Negative for: Calf Tenderness Skin: Normal color, No rash Neurological: Alert, Oriented x3, Cranial nerves II-XII grossly intact, Normal Strength, Normal Sensation, - - Normal coordination. Negative for: Left side facial droop, Right side facial droop Psychological: Normal affect, Normal Mood Diagnostic/Tx/Re-eval Chest X-Ray - ED: 1 View, Read by ED Physician, Read by Radiologist, No Acute Disease Clinical Impression(s) from Imaging Studies Brain CT 10/06/19 14:16 IMPRESSION: 1. No acute findings. 2. White matter hypodensities, possibly chronic ischemic etiology. If evaluation for intracranial metastatic disease is desired MR or CT with contrast are recommended. Electronically Signed: Dez Parks, at 15:34 EDT Tel , Service support , Chest X-Ray 10/06/19 14:16 IMPRESSION: Normal x-ray examination of the chest. Electronically Signed: Dez Parks at 16:07 EDT Tel , Service support , Lumbar Spine X-Ray 10/06/19 14:18 IMPRESSION: Unremarkable plain films of the lumbar spine. If definitive osseous imaging is desired refer to advanced modalities such as CT or MR. Osteoporosis. Electronically Signed: Dez Parks, at 16:10 EDT Tel , Service support , Pelvis X-Ray 10/06/19 14:18 IMPRESSION: Normal x-ray examination of the pelvis. Electronically Signed: Dez Parks, at 16:11 EDT Tel , Service support , Thoracic Spine X-Ray 10/06/19 14:18 IMPRESSION: Unremarkable plain films of the thoracic spine. Please note that in a patient with known bone cancer plain films are not sufficient for definitive diagnosis. Refer to advanced modalities such as CT or MR. Electronically Signed: Dez Parks, at 16:09 EDT Tel , Service support , Laboratory Data 10/06/19 10/06/19 10/06/19 14:50 14:50 14:50 WBC 3.2 L RBC 2.79 L Hgb 9.2 L Hct 28.5 L MCV 102.2 H MCH 33.0 H MCHC 32.3 RDW Std Deviation 55.3 H RDW Coeff of Janet 14.8 H Plt Count 107 L MPV 10.2 Immature Gran % (Auto) 0.300 Neut % (Auto) 53.4 Lymph % (Auto) 38.9 [place] % (Auto) 6.5 Eos % (Auto) 0.6 Baso % (Auto) 0.3 Absolute Neuts (auto) 1.7 L Absolute Lymphs (auto) 1.26 Nucleated RBC % 0 Sodium 134 L Potassium 3.8 Chloride 100 Carbon Dioxide 28.0 Anion Gap 6 BUN 23 H Creatinine 0.84 Estim Creat Clear Calc 48.58 Est GFR (MDRD) Af Amer 86 Est GFR (MDRD) Non-Af 71 BUN/Creatinine Ratio 27.3 H Glucose 253 H Hemoglobin A1c 8.6 H Calcium 8.6 Troponin I < 0.015 Urine Color Urine Clarity Urine pH Ur Specific [place] Urine Protein Urine Glucose (UA) Urine Ketones Urine Occult Blood Urine Nitrite Urine Bilirubin Urine Urobilinogen Ur Leukocyte Esterase Urine RBC Urine WBC Ur Squamous Epith Cells Urine Bacteria Urine Mucus 10/06/19 15:00 WBC RBC Hgb Hct MCV MCH MCHC RDW Std Deviation RDW Coeff of Janet Plt Count MPV Immature Gran % (Auto) Neut % (Auto) Lymph % (Auto) [place] % (Auto) Eos % (Auto) Baso % (Auto) Absolute Neuts (auto) Absolute Lymphs (auto) Nucleated RBC % Sodium Potassium Chloride Carbon Dioxide Anion Gap BUN Creatinine Estim Creat Clear Calc Est GFR (MDRD) Af Amer Est GFR (MDRD) Non-Af BUN/Creatinine Ratio Glucose Hemoglobin A1c Calcium Troponin I Urine Color Yellow Urine Clarity Cloudy Urine pH 6.0 Ur Specific [place] 1.015 Urine Protein 100 H Urine Glucose (UA) 50 H Urine Ketones 5 H Urine Occult Blood 50 H Urine Nitrite Negative Urine Bilirubin Negative Urine Urobilinogen Normal Ur Leukocyte Esterase 500 H Urine RBC 0 SEEN Urine WBC >100 SEEN Ur Squamous Epith Cells 0 SEEN Urine Bacteria 1+ Urine Mucus 0 SEEN - Rhythm Strip Rhythm Strip: Sinus Rhythm Rate: 80 Ectopy: None - EKG Initial EKG Interpretation: Sinus Rhythm, - - Sinus rhythm at a rate of 80 Normal intervals Normal axis Normal ST segments - Medical Decision Making Patient is evaluated for worsening vertigo over the past 5 days. She is had 2 falls at home. She lives home alone and not feel safe at home. Vertigo she describes as a spinning sensation but she also states she feels lightheaded. I am not able to re-elicit nystagmus or symptoms on exam. Patient does have multiple stroke risk factors so is possible this could be a central vertigo. In addition she does have a history of metastatic breast cancer however no known brain metastasis. Patient is given oral Valium with some minor improvement of her symptoms. No obvious injuries are seen from her falls. She does found to have a urinary tract infection is started on IV Rocephin and urine culture sent. Patient will be admitted for symptomatic UTI versus rule out of central vertigo. Differential also includes cardiogenic cause of her lightheadedness/dizziness. Patient is agreeable with plan. She stable for PCU at time of disposition. ED Disposition - Plan for ED Patient: Disposition: [facility] Diagnosis: Vertigo, UTI (urinary tract infection), Falls, Leukopenia, CLL (chronic lymphocytic leukemia), Cancer, metastatic to bone
[2019-10-06 15:35] LABS: Bacteria 1+ /hpf (None Seen); White Blood Cells >100 SEEN /hpf (0-5)
--- NOTE | 2019-10-06 15:55 | HP.PCM_ITS ---
Problem List (1) Vertigo Status: Acute (2) HTN (hypertension) Status: Chronic Qualifiers: Hypertension type: essential hypertension Qualified Code(s): I10 - Essential (primary) hypertension (3) Diabetes mellitus Status: Chronic Qualifiers: Diabetes mellitus type: type 2 Diabetes mellitus jail insulin use: without intermediate teacher use Diabetes mellitus complication status: with other specified complication Qualified Code(s): E11.69 - Type 2 diabetes mellitus with other specified complication (4) CLL (chronic lymphocytic leukemia) Status: Chronic (5) Hyperlipidemia Status: Chronic Qualifiers: Hyperlipidemia type: unspecified Qualified Code(s): E78.5 - Hyperlipidemia, unspecified (6) Hypothyroid Status: Chronic Qualifiers: Hypothyroidism type: unspecified Qualified Code(s): E03.9 - Hypothyroidism, unspecified (7) H/O cancer of uterus Status: Chronic (8) Stage IV carcinoma of breast Status: Chronic Qualifiers: Laterality: right Qualified Code(s): C50.911 - Malignant neoplasm of unspecified site of right female breast (9) Cancer, metastatic to bone Status: Chronic History of Present Illness Date of Admission: 10/06/19 Chief Complaint: Dizziness - 1 week, progressively worsening The patient is a 73 year old F with past medical history of CLL, hypertension, Type DM, metastatic breast cancer, mets to the bone, hypercholesterolemia, chronic vertigo who comes in with complains of dizziness ongoing for about a week. Patient states that she has been progressively weak and dizzy anytime she gets up and has been falling. She fell last week - Monday and Monday. Over the last couple of days, she has been using the wheelchair. She was brought to the emergency room because her children got concerned over her progressive dizziness. Denied any hearing loss, tinnitus. No change in her medications. Her dizziness is described as spinning, worse when she gets up and also when she moves her head. Vitals in the ED showed temperature 98.0 F, heart rate 79, blood pressure 100/55, respiratory rate 20, SPO2 is 96% on room air. Her WBC count of 3.2, hemoglobin 9.2, platelet count 107. Na 134, K 3.87, Cl 100, HCO3 28, BUN 23, Cr 0.84. Troponin 0.015. UA showed cloudy, ketone 5, occult 50, Nitrite negative, WBC >100, Leucocyte 500. Brain CT showed chronic white matter hypodensities. Chest x-ray shows no acute abnormality. Lumbar X-ray shows osteoporosis. Pelvic x-ray is unremarkable. EKG shows normal sinus rhythm, no acute ST-T changes, QTC 470 Past Medical History Past Medical History (Chronic Problems): Chronic Problems (Last Reviewed 06/26/19 @ 10:02 by Adeline Meade) HTN (hypertension) (Chronic) H/O BREAST CANCER (Chronic) Diabetes mellitus (Chronic) Obesities, morbid (Chronic) CLL (chronic lymphocytic leukemia) (Chronic) Hyperlipidemia (Chronic) Hypothyroid (Chronic) H/O cancer of uterus (Chronic) Breast cancer, right breast (Chronic) Stage IV carcinoma of breast (Chronic) Cancer, metastatic to bone (Chronic) Lump of right breast (Chronic) Breast density (Chronic) Medical History: Medical History (Last Reviewed 06/26/19 @ 10:02 by Adeline Meade) Diabetes E11.9 History of breast cancer Z85.3 Hypercholesteremia E78.00 Sleep apnea G47.30 Vertigo R42 left leg fx repair Allergies lovastatin Adverse Reaction (Verified 10/06/19 13:41) MUSCLE CRAMPS IN LEGS nickel [Nickel] Adverse Reaction (Verified 10/06/19 13:41) Rash Home Medications: Ambulatory Orders Medication Instructions Recorded Aspirin [Aspirin, Baby] 81 mg PO DAILY@0800 07/30/13 Meclizine HCl [Antivert] 12.5 mg PO DAILY PRN PRN 07/30/13 Metoprolol(XL)Succ [Toprol Xl 100 mg PO DAILY 07/30/13 (Beta Elle)] Cholecalciferol (VIT D3) [Vitamin 5,000 unit PO DAILY 03/24/14 D3] Enalapril Maleate [Vasotec] 20 mg PO DAILY 03/24/14 Rosuvastatin Calcium [Crestor] 10 mg PO QODAY 03/24/14 Levothyroxine [Synthroid] 100 mcg PO DAILY 09/08/14 Multivitamins,Therapeutic 1 tab PO DAILY 09/08/14 [Multivitamin] Omeprazole [Prilosec] 20 mg PO QODAY 01/05/15 Insulin Detemir [Levemir (BKC)] 50 units SC DAILY 10/03/16 Magnesium Oxide [Mag-Ox 400] 400 mg PO DAILY 30 Days #30 tab 10/24/17 Tamoxifen Citrate [Nolvadex] 20 mg PO BID 30 Days #60 tab 07/30/18 Hydrocodone Bitart/Apap 5-325 1 tab PO Q6H PRN PRN #90 tab 08/01/19 [[place] 5/325] Vitamin B-12 500 mg PO BID 10/06/19 Surgical History: Surgical History (Last Reviewed 06/26/19 @ 10:02 by Adeline Meade) H/O arthroscopy of left knee Z98.890 TORN MINISCUS REPAIR H/O breast surgery Z98.890 H/O: hysterectomy Z90.710 H/O: hysterectomy Z90.710 History of cataract extraction Z98.49 RIGHT MAR [address] Hollie DICK History of right breast biopsy Onset Date: ~06/19/18 Z98.890 Hx of cholecystectomy Z90.49 S/P lumpectomy, right breast Z98.890 Surgical History: cholecystectomy, hysterectomy - Lumpectomy of the right breast, - - Status post cataract extraction, lumpectomy Psychiatric History: No pertinent psych hx [employer]ER History: No pertinent [employer] history Lives: Alone Smoking Status: Never smoker Tobacco Use: Non-smoker Alcohol: None Drugs: None - *Family History Maternal Family History: Family History (Last Reviewed 06/26/19 @ 10:02 by Adeline Meade) Father Heart disease Hypertension Mother Rheumatoid arthritis Skin cancer Brother Melanoma History Items: Cancer - skin Paternal Family History: Family History (Last Reviewed 06/26/19 @ 10:02 by Adeline Meade) Father Heart disease Hypertension Mother Rheumatoid arthritis Skin cancer Brother Melanoma History Items: Heart Disease - from massive heart attack at age 62., Hypertension Review of Systems Constitutional: Reports: Weakness, Fatigue. Denies: Anorexia, Chills, Fever, Weight Change Eyes: Denies: Blurred vision, Cataracts, Conjunctivae Inflammation, Pain, Redness HEENT: Denies: Difficulty Hearing, Difficulty Swallowing, Head Aches, Hearing Changes, Sinus Congestion, Sinus Drainage Cardiovascular: Denies: Chest Pain, Claudication, Orthopnea, Palpitations Respiratory: Denies: Cough, Hemoptysis, Shortness of breath at rest, Shortness of breath upon exertion, Sputum production Gastrointestinal: Denies: Abdominal Pain, Constipation, Hematemesis, Hematochezia, Nausea, Vomiting Genitourinary: Denies: Dysuria Musculoskeletal: Denies: Joint Pain, Joint Tenderness Skin: Denies: Rash, Wounds Neurological: Reports: Balance problems, - - vertigo Psychiatric: Denies: Anxiety, Depression, Homicidal Ideations, Suicidal Ideations Hematologic/ Lymphatic: Denies: Easy Bruising, Easy Bleeding VTE Information - Inpt Only VTE Present on Admission: No VTE Pharm Prophylaxis ordered?: Yes Patient Problems: Active and Suspected Problems (Last Reviewed 06/26/19 @ 10:02 by Adeline Meade) Vertigo (Acute) - Physical Exam Vitals/I&O's: Vital Signs Temp Pulse Resp BP Pulse Ox 97.4 F L 79 18 120/64 95 10/06/19 13:40 10/06/19 14:41 10/06/19 13:40 10/06/19 14:41 10/06/19 13:40 Oxygen Delivery Method Room Air Weight: 109.5 kg Body Mass Index (BMI) 44.1 General: Alert, Oriented x3, Cooperative, No apparent distress HEENT: Atraumatic, PERRLA, EOMI, Normocephalic Oral: Moist Mucosa Neck: Supple Lungs: Clear to auscultation, Normal air movement Cardiovascular: Regular rate, Regular Rhythm, Normal S1, Normal S2, No murmurs Abdomen: Bowel Sounds Present, Soft, Non Tender, Non-Distended, No Hepato- splenomegaly Extremities: No edema Skin: No rashes, No breakdown Musculoskeletal: No Tenderness to Palpation of Joints or Extremities Lymphatic: No Cervical, Supraclavicular, or Inguinal Adenopathy Neurological: Cranial nerves II-XII grossly intact - except for mild horizontal nystagmus Psych/Mental Status: Normal Affect, Appropriate Laboratory Results 10/06/19 14:50: WBC 3.2 L, RBC 2.79 L, Hgb 9.2 L, Hct 28.5 L, MCV 102.2 H, MCH 33.0 H, MCHC 32.3, RDW Std Deviation 55.3 H, RDW Coeff of Janet 14.8 H, Plt Count 107 L, MPV 10.2, Immature Gran % (Auto) 0.300, Neut % (Auto) 53.4, Lymph % (Auto) 38.9, [place] % (Auto) 6.5, Eos % (Auto) 0.6, Baso % (Auto) 0.3, Absolute Neuts (auto) 1.7 L, Absolute Lymphs (auto) 1.26, Nucleated RBC % 0 10/06/19 14:50: Sodium 134 L, Potassium 3.8, Chloride 100, Carbon Dioxide 28.0, Anion Gap 6, BUN 23 H, Creatinine 0.84, Estim Creat Clear Calc 48.58, Est GFR (MDRD) Af Amer 86, Est GFR (MDRD) Non-Af 71, BUN/Creatinine Ratio 27.3 H, Glucose 253 H, Calcium 8.6, Troponin I < 0.015 10/06/19 15:00: Urine Color Yellow, Urine Clarity Cloudy, Urine pH 6.0, Ur Specific [place] 1.015, Urine Protein 100 H, Urine Glucose (UA) 50 H, Urine Ketones 5 H, Urine Occult Blood 50 H, Urine Nitrite Negative, Urine Bilirubin Negative, Urine Urobilinogen Normal, Ur Leukocyte Esterase 500 H, Urine RBC 0 SEEN, Urine WBC >100 SEEN, Ur Squamous Epith Cells 0 SEEN, Urine Bacteria 1+, Urine Mucus 0 SEEN Current Medications Ceftriaxone Sodium (Rocephin) 1 gm in 50 mls @ 100 mls/hr IV X1 ONE Stop: 10/06/19 16:15 Assessment/Plan All Active Problems (Last Reviewed 06/26/19 @ 10:02 by Adeline Meade) Back ache (Acute) Vertigo (Acute) Malignant neoplasm of upper-outer quadrant of right female breast (Resolved) Agranulocytosis secondary to cancer chemotherapy (Acute) Chemotherapy management, encounter for (Acute) Cancer related pain (Acute) Nocturnal leg cramps (Acute) Abnormal mammogram of right breast (Acute) 1. Acute on chronic vertigo concerning for possible posterior circulation CVA Patient has mild nystagmus on exam Would admit to PCU, stroke work-up, MRI of the brain, 2D echo, lipid profile, HbA1c Possible SOC consult in a.m. if MRI is positive for stroke Continue on aspirin, statin, meclizine as needed 2. History of CLL/metastatic breast CA, follows up with oncology in the outpatient Tinea on tamoxifen 3. Type II DM, on home Lantus, continue on home insulin regimen Blood glucose checks with low-dose insulin sliding scale 4. Hypothyroidism, continue on levothyroxine 5. Hypertension, would hold off on lisinopril to allow for permissive hypertension But will continue metoprolol at 25mg daily to help avoid rebound tachycardia Will monitor blood pressure closely to prevent worsening hypotension 6. DVT Px- Lovenox SC OBSV E&M: [id number] Initial observation care L3
[2019-10-06] MEDS: Ceftriaxone 1 GM/50 ML BAG IV (16:25)
--- NOTE | 2019-10-06 16:52 | ECHOD_ITS ---
Reason For Study: TIA/CVA Procedure This was a 2D Doppler, Color Flow transthoracic echocardiogram. Myocardial strain analysis was performed in this exam to aid in the assessment of cardiac function. Exam performed portable in patient room. Left Ventricle Normal LV size. Left ventricular systolic function is normal. The estimated ejection fraction is 60 %. Stage 1 diastolic dysfunction. No regional wall motion abnormalities noted. Right Ventricle Normal RV size. Normal systolic function. Atria The left atrium is mildly enlarged. Normal right atrium. Bubble contrast study negative for right to left interatrial shunt. Mitral Valve Normal mitral valve. Tricuspid Valve Normal tricuspid valve. Mild (1+) tricuspid valve insufficiency. Pulmonary artery systolic pressure is 28 mmHg. Aortic Valve Trisinus/trileaflet aortic valve. Pulmonic Valve The pulmonic valve is not well visualized. Great Vessels Normal aortic root. Pericardium/Pleural No pericardial effusion. Medication Performed a rapid injection of agitated mix of 9 cc saline and 1cc air to assess for atrial septal defect. MMode/2D Measurements & Calculations LVIDd: 3.9 cm IVSd: 0.87 cm Ao root diam: 2.7 cm LVIDs: 2.8 cm LVPWd: 1.1 cm RVDd: 1.9 cm FS: 28.9 % LAV(MOD-bp): 36.1 ml LVAd ap4: 26.0 cm2 SV(MOD-sp4): 42.8 ml LAV(MOD-bp) Indexed: 17.5 ml/m2 EDV(MOD-sp4): 74.8 ml LAV(MOD-sp2): 38.5 ml EDV(sp4-el): 77.0 ml LAV(MOD-sp4): 34.9 ml LVAs ap4: 15.5 cm2 ESV(MOD-sp4): 32.0 ml ESV(sp4-el): 32.7 ml EF(MOD-sp4): 57.2 % EF(sp4-el): 57.6 % SV(sp4-el): 44.4 ml LA A4 area: 14.6 cm2 LA dimension(2D): 4.4 cm RA A4 area: 5.8 cm2 Doppler Measurements & Calculations MV E max ge: 63.8 cm/sec Lat Peak E' Ge: 10.1 cm/sec Med Peak E' Ge: 7.8 cm/sec MV A max ge: 113.0 cm/sec E/E' lat: 6.3 E/E' med: 8.2 MV E/A: 0.56 Ao V2 max: 123.1 cm/sec LV V1 max: 97.3 cm/sec PA V2 max: 104.0 cm/sec Ao max P.1 mmHg LV V1 max P.8 mmHg Ao V2 mean: 89.2 cm/sec Ao mean P.4 mmHg Ao V2 VTI: 22.9 cm TR max ge: 251.2 cm/sec TR max P.2 mmHg Interpretation Summary Normal LV size. Left ventricular systolic function is normal. The estimated ejection fraction is 60 %. Stage 1 diastolic dysfunction. Pulmonary artery systolic pressure is 28 mmHg. Bubble contrast study negative for right to left interatrial shunt. The global longitudinal strain = -15.6% (abnormal). The global longitudinal strain is mildly abnormal. Ordering Physician: Lara Finney Referring Physician: Camelia Hess Performed By: Adeline Ashley, HAROON, RVT
[2019-10-06] MEDS: 0.9% Saline Lock 10 ML Syringe IV (17:23)
[2019-10-06] MEDS: 0.9% Normal Saline 1,000 ML 75 ML IV (17:23)
[2019-10-06 19:44] LABS: Hemoglobin A1c 8.6 % (3.8-5.6)
[2019-10-06] MEDS: Tamoxifen 10 MG Tablet 20 MG PO (21:29)
[2019-10-06] MEDS: Famotidine 20 MG Tablet PO (21:29)
[2019-10-06 21:41] LABS: Bedside Glucose 359 mg/dL (70-110)
[2019-10-07] VITALS (13 sets, daily range): BP systolic 121–149; BP diastolic 50–70; PULSE 74–90; RESP 16–18; TEMP 36.6–38; O2SAT 94–97; BMI 43.0
[2019-10-07] MEDS: HYDROcodone Bitartrate/Apap 5/325 Tablet PO ×2 (01:29→08:09)
[2019-10-07] MEDS: Enoxaparin 40 MG/0.4 ML Syringe SC (05:04)
[2019-10-07] MEDS: Levothyroxine 75 MCG Tablet PO (05:04)
[2019-10-07 06:45] LABS: Absolute Lymphocyte Count 1.47 X10^3/uL (0.83-4.51); Absolute Neutrophil Count 1.5 X10^3/uL (2.0-7.7); Basophil# 0.01 X10^3/uL; Basophil% 0.3 % (0-1); Bedside Glucose 334 mg/dL (70-110); Eosinophil# 0.04 X10^3/uL; Eosinophils% 1.3 % (0-5); Hematocrit 26.2 % (37-47); Hemoglobin 8.4 g/dL (12.0-15.0); Lymphocyte # 1.47 X10^3/ul (4.0); Lymphocyte % 46.8 % (19-41); Mean Corp Hgb Conc 32.1 g/dL (32-36); Mean Corpuscular Hgb 33.1 pg (27.0-32.0); Mean Corpuscular Volume 103.1 fL (81-99); Mean Platelet Vol. 10.6 fl (6.2-12.0); Monocyte# 0.08 X10^3/uL; Monocyte% 2.5 % (0-10); NRBC Flagged by Analyzer 0 % (0-5); Neutrophil # 1.52 X10^3/uL (2.7-7.7); Neutrophil % 48.5 % (47-70); POSITIVE MORPHOLOGY YES; Platelet Count 105 K/mm3 (150-450); RBC Distribution Width CV 14.9 % (11.6-14.6); RBC Distribution Width SD 56.5 fl (35.1-43.9); Red Blood Count 2.54 M/mm3 (4.2-5.4); White Blood Count 3.1 K/mm3 (4.4-11.0)
[2019-10-07 07:02] LABS: Differential Indicated SCAN CRITERIA MET
[2019-10-07 07:08] LABS: ALB/GLOB Ratio 0.5 RATIO (0.9-2.4); AST(SGOT) 39 U/L (15-37); Alanine Aminotransfer ALT/SGPT 42 U/L (13-56); Albumin, Serum 1.8 g/dL (3.2-5.0); Alkaline Phosphatase 60 U/L (45-117); Anion Gap 6 (5-15); BUN 22 mg/dL (7-18); BUN/Creat Ratio 24.9 RATIO (10-20); Calcium,Total 7.8 mg/dL (8.5-10.1); Chloride 101 mmol/L (98-107); Cholesterol 73 mg/dL (200); Creatinine, Serum 0.88 mg/dL (0.55-1.02); EST Glomerular Filtration Rate 67 mL/min (>60); Est Glom Filt Rate - Afr Amer 81 mL/min (>60); Estimated Creatinine Clearance 46.38 ml/min; Globulin 3.5 g/dL (2.2-4.2); Glucose 363 mg/dL (74-106); High Density Lipoprotein 10 mg/dL; Potassium 3.7 mmol/L (3.5-5.1); Protein, Total 5.3 g/dL (6.4-8.2); Sodium Level 134 mmol/L (136-145); Triglycerides 208 mg/dL; Very Low Density Lipoprotein 42 mg/dL (5-40)
[2019-10-07 07:10] LABS: Differential Comment SCANNED
--- NOTE | 2019-10-07 08:00 | MRI_ITS ---
STUDY: MRI BRAIN WITHOUT CONTRAST REASON FOR EXAM: Female, 73 years old. progressive dizziness, falls TECHNIQUE: Standardized multiplanar fat and water weighted pulse sequences were obtained. COMPARISON: August 05, 2016 FINDINGS: There is mild cerebral atrophy with widening of the extra-axial spaces and ventricular dilatation. There are multiple white matter hyperintensities, distributed throughout the deep white matter tracts of the cerebral hemispheres, consistent with moderate chronic white matter ischemic changes. Normal bilateral basal ganglia. Normal thalami. There is no extra-axial fluid accumulation. Normal flow voids within the major intracranial circulation suggesting patency by spin echo criteria. Normal sella turcica, pituitary gland, infundibular stalk, optic chiasm and hypothalamus. Normal tectal plate and pineal gland. Normal midbrain, elvia and medulla. Normal cerebellum. MRI/Brain without Contrast IMPRESSION: No acute intracranial abnormality. Moderate chronic microvascular ischemic changes. Electronically Signed: Zach Ruiz MD at 10:06 EDT Tel , Service support ,
[2019-10-07] MEDS: Aspirin 81 MG TAB.CHEW PO (08:09)
--- NOTE | 2019-10-07 08:13 | PN_ITS ---
Patient Problems: Active and Suspected Problems (Last Reviewed 06/26/19 @ 10:02 by Adeline Meade) Vertigo (Acute) UTI (urinary tract infection) (Acute) Falls (Acute) Leukopenia (Acute) Reason for Visit: Follow-up on acute on chronic dizziness. Subjective: Patient was seen and examined. She complains of persistent dizziness. MRI of the brain is negative. Objective: General: Alert, Oriented x3, Cooperative, No apparent distress HEENT: Atraumatic, PERRLA, EOMI, Normocephalic Oral: Moist Mucosa Neck: Supple Lungs: Clear to auscultation, Normal air movement Cardiovascular: Regular rate, Regular Rhythm, Normal S1, Normal S2, No murmurs Abdomen: Bowel Sounds Present, Soft, Non Tender, Non-Distended, No Hepato-splenomegaly Extremities: No edema Skin: No rashes, No breakdown Musculoskeletal: No Tenderness to Palpation of Joints or Extremities Lymphatic: No Cervical, Supraclavicular, or Inguinal Adenopathy Neurological: Cranial nerves II-XII grossly intact Psych/Mental Status: Normal Affect, Appropriate Vitals/I&O's: Vital Signs Temp Pulse Resp BP Pulse Ox 98.4 F 81 16 139/64 H 97 10/07/19 08:00 10/07/19 08:00 10/07/19 08:00 10/07/19 08:00 10/07/19 08:00 Oxygen Delivery Method Room Air Weight: 108.7 kg Body Mass Index (BMI) 43.0 Intake and Output for Last 24 Hours 10/05/19 10/06/19 10/07/19 23:59 23:59 23:59 Intake Total 50 / 250 1440 / 1440 Output Total 200 / 200 Balance 50 / 50 1240 / 1240 Laboratory Results 10/06/19 14:50: WBC 3.2 L, RBC 2.79 L, Hgb 9.2 L, Hct 28.5 L, MCV 102.2 H, MCH 33.0 H, MCHC 32.3, RDW Std Deviation 55.3 H, RDW Coeff of Janet 14.8 H, Plt Count 107 L, MPV 10.2, Immature Gran % (Auto) 0.300, Neut % (Auto) 53.4, Lymph % (Auto) 38.9, [place] % (Auto) 6.5, Eos % (Auto) 0.6, Baso % (Auto) 0.3, Absolute Neuts (auto) 1.7 L, Absolute Lymphs (auto) 1.26, Nucleated RBC % 0 10/06/19 14:50: Sodium 134 L, Potassium 3.8, Chloride 100, Carbon Dioxide 28.0, Anion Gap 6, BUN 23 H, Creatinine 0.84, Estim Creat Clear Calc 48.58, Est GFR (MDRD) Af Amer 86, Est GFR (MDRD) Non-Af 71, BUN/Creatinine Ratio 27.3 H, Glucose 253 H, Calcium 8.6, Troponin I < 0.015 10/06/19 14:50: Hemoglobin A1c 8.6 H 10/06/19 15:00: Urine Color Yellow, Urine Clarity Cloudy, Urine pH 6.0, Ur Specific [place] 1.015, Urine Protein 100 H, Urine Glucose (UA) 50 H, Urine Ketones 5 H, Urine Occult Blood 50 H, Urine Nitrite Negative, Urine Bilirubin Negative, Urine Urobilinogen Normal, Ur Leukocyte Esterase 500 H, Urine RBC 0 SEEN, Urine WBC >100 SEEN, Ur Squamous Epith Cells 0 SEEN, Urine Bacteria 1+, Urine Mucus 0 SEEN 10/06/19 21:32: POC Glucose 359 H 10/07/19 06:30: WBC 3.1 L, RBC 2.54 L, Hgb 8.4 L, Hct 26.2 L, MCV 103.1 H, MCH 33.1 H, MCHC 32.1, RDW Std Deviation 56.5 H, RDW Coeff of Janet 14.9 H, Plt Count 105 L, MPV 10.6, Immature Gran % (Auto) 0.600, Neut % (Auto) 48.5, Lymph % (Auto) 46.8 H, [place] % (Auto) 2.5, Eos % (Auto) 1.3, Baso % (Auto) 0.3, Absolute Neuts (auto) 1.5 L, Absolute Lymphs (auto) 1.47, Nucleated RBC % 0, Differential Comment SCANNED 10/07/19 06:30: Sodium 134 L, Potassium 3.7, Chloride 101, Carbon Dioxide 27.0, Anion Gap 6, BUN 22 H, Creatinine 0.88, Estim Creat Clear Calc 46.38, Est GFR (MDRD) Af Amer 81, Est GFR (MDRD) Non-Af 67, BUN/Creatinine Ratio 24.9 H, Glucose 363 H, Calcium 7.8 L, Total Bilirubin 0.40, AST 39 H, ALT 42, Alkaline Phosphatase 60, Total Protein 5.3 L, Albumin 1.8 L, Globulin 3.5, Albumin/Globulin Ratio 0.5 L, Triglycerides 208 H, Cholesterol 73, LDL Cholesterol 21, VLDL Cholesterol 42 H, HDL Cholesterol 10 L 10/07/19 06:30: POC Glucose 334 H Current Medications Acetaminophen (Tylenol) 650 mg PO Q6H PRN PRN PRN Reason: Pain Score 1-10/Temp > 100.7 F Hydrocodone Bitart/Acetaminophen ([place] 5mg-325mg) 1 tablet PO Q6H PRN PRN PRN Reason: Pain Score 1-10/10 Last Admin: 10/07/19 08:09 Dose: 1 tablet Documented by: Aspirin (Aspirin, Baby) 81 mg PO DAILY@0800 [facility] Last Admin: 10/07/19 08:09 Dose: 81 mg Documented by: Cholecalciferol (Vitamin D (25mcg)) 5,000 unit PO DAILY [facility] Enoxaparin Sodium (Lovenox) 40 mg SC DAILY@0600 [facility] Last Admin: 10/07/19 05:04 Dose: 40 mg Documented by: Famotidine (Pepcid) 20 mg PO BID [facility] Last Admin: 10/06/19 21:29 Dose: 20 mg Documented by: Heparin Sodium (Beef Lung) () 50 units IV UD PRN PRN Reason: Port-a-Cath (VAD)Heparin Flush Sodium Chloride () 250 mls @ 15 mls/hr IV .[id number] PRN PRN Reason: Additional IVPB Infusion Ceftriaxone Sodium (Rocephin) 1 gm in 50 mls @ 100 mls/hr IV Q24 [facility] Sodium Chloride () 500 mls @ 15 mls/hr IV PRN PRN PRN Reason: Blood Transfusion Sodium Chloride () 250 mls @ 15 mls/hr IV .[id number] PRN PRN Reason: Saline Flush Sodium Chloride () 250 mls @ 15 mls/hr IV .[id number] PRN PRN Reason: Additional IVPB Infusion Insulin Glargine (Lantus (Bkc)) 50 units SC DAILY [facility] Labetalol HCl (Trandate) 10 - 20 mg IV Q10M PRN PRN PRN Reason: to Maintain BP Goals Levothyroxine Sodium (Synthroid) 75 mcg PO DAILY@0600 [facility] Last Admin: 10/07/19 05:04 Dose: 75 mcg Documented by: Magnesium Oxide (Mag-Ox 400) 400 mg PO DAILY [facility] Meclizine HCl (Antivert) 12.5 mg PO DAILY PRN PRN PRN Reason: VERTIGO Metoprolol Succinate (Toprol Xl (Beta Elle)) 25 mg PO DAILY [facility] Nutritional Formula (Lactose Free) (Glucerna Shake) 120 ml PO TIDCM [facility] Ondansetron HCl (Zofran) 4 mg IV Q8H PRN PRN PRN Reason: NAUSEA/VOMITING Pantoprazole Sodium (Protonix) 20 mg PO QODAY [facility] Rosuvastatin Calcium (Crestor) 10 mg PO QODAY [facility] Sodium Chloride () 10 - 40 ml IV UD PRN PRN Reason: Port-a-Cath (VAD) Flush Last Admin: 10/06/19 17:23 Dose: 10 ml Documented by: Sodium Chloride (0.9% Nacl (Sterile) Posiflush) 10 - 40 ml IV UD PRN PRN Reason: Port access or dressing change Tamoxifen Citrate (Nolvadex) 20 mg PO BID [facility] Last Admin: 10/06/19 21:29 Dose: 20 mg Documented by: STROKE Vital Signs/Narrative: Vital Signs Temp Pulse Resp BP Pulse Ox 10/07/19 08:00 98.4 F 81 16 139/64 H 97 10/07/19 06:49 79 10/07/19 05:27 98.2 F 77 16 145/63 H 96 Medical Necessity - Tobacco Use Smoking Status: Never smoker Tobacco Use: Non-smoker Assessment/Plan All Active Problems (Last Reviewed 06/26/19 @ 10:02 by Adeline Meade) Back ache (Acute) Vertigo (Acute) UTI (urinary tract infection) (Acute) Falls (Acute) Leukopenia (Acute) Malignant neoplasm of upper-outer quadrant of right female breast (Resolved) Agranulocytosis secondary to cancer chemotherapy (Acute) Chemotherapy management, encounter for (Acute) Cancer related pain (Acute) Nocturnal leg cramps (Acute) Abnormal mammogram of right breast (Acute) 1. Acute on chronic vertigo, likely secondary to BPPV Stroke ruled out with negative MRI of the brain PT and OT to evaluate and treat 2. History of CLL/metastatic breast CA, follows up with oncology in the outpatient Continue on tamoxifen 3. Type II DM, on home Lantus, continue on home insulin regimen Blood glucose checks with low-dose insulin sliding scale 4. Hypothyroidism, continue on levothyroxine 5. Hypertension, controlled, would continue on metoprolol 50 mg daily Hold off on lisinopril for now 6. DVT Px- Lovenox [place] Inpatient E&M: 82219 Subs Hosp L2
[2019-10-07] MEDS: 0.9% Saline Lock 10 ML Syringe IV (08:14)
[2019-10-07] MEDS: LORazepam 2 MG/ML Syringe 1 MG IV (08:14)
[2019-10-07] MEDS: Ceftriaxone 1 GM/50 ML BAG IV (09:41)
[2019-10-07] MEDS: Famotidine 20 MG Tablet PO ×2 (09:43→21:04)
[2019-10-07] MEDS: Magnesium Oxide 400 MG Tablet PO (09:43)
[2019-10-07] MEDS: Tamoxifen 10 MG Tablet 20 MG PO ×2 (09:44→21:04)
--- NOTE | 2019-10-07 09:50 | NURSING ---
899 report called to Jennifer BROWN caring for patient and also ended up giving her a bedside report, pt sleepy but awakens to voice, o2 at 2 liters.
[2019-10-07] MEDS: Metoprolol(XL)Succ 25 MG Tablet PO (10:18)
[2019-10-07] MEDS: Glucerna Shake 120 ML LIQUID PO ×2 (10:18→16:15)
[2019-10-07 11:01] LABS: Bedside Glucose 374 mg/dL (70-110)
[2019-10-07] MEDS: Meclizine 12.5 MG Tablet PO (14:02)
[2019-10-07] MEDS: 0.9% Normal Saline 1,000 ML 100 ML IV (14:37)
[2019-10-07 18:01] LABS: Bedside Glucose 389 mg/dL (70-110)
[2019-10-07] MEDS: Insulin Lispro 100 UNIT/ML INSULN.PEN SC ×2 (18:04→21:08)
[2019-10-07 21:35] LABS: Bedside Glucose 327 mg/dL (70-110)
[2019-10-08] VITALS (12 sets, daily range): BP systolic 136–161; BP diastolic 61–73; PULSE 80–92; RESP 16–19; TEMP 37.1–37.6; O2SAT 93–95; BMI 43.0
[2019-10-08] MEDS: HYDROcodone Bitartrate/Apap 5/325 Tablet PO (03:39)
[2019-10-08] MEDS: Enoxaparin 40 MG/0.4 ML Syringe SC (05:15)
[2019-10-08] MEDS: Levothyroxine 75 MCG Tablet PO (05:15)
[2019-10-08] MEDS: Insulin Lispro 100 UNIT/ML INSULN.PEN SC ×4 (06:32→21:15)
[2019-10-08 07:05] LABS: Bedside Glucose 288 mg/dL (70-110)
[2019-10-08] MEDS: Rosuvastatin Calcium 5 MG Tablet 10 MG PO (10:15)
[2019-10-08] MEDS: Aspirin 81 MG TAB.CHEW PO (10:15)
[2019-10-08] MEDS: Glucerna Shake 120 ML LIQUID PO (10:15)
[2019-10-08] MEDS: Metoprolol(XL)Succ 50 MG Tablet PO (10:16)
[2019-10-08] MEDS: Tamoxifen 10 MG Tablet 20 MG PO ×2 (10:16→21:15)
[2019-10-08] MEDS: Pantoprazole Sodium 20 MG Tablet PO (10:16)
[2019-10-08] MEDS: Famotidine 20 MG Tablet PO ×2 (10:16→21:15)
[2019-10-08] MEDS: Magnesium Oxide 400 MG Tablet PO (10:16)
--- NOTE | 2019-10-08 10:54 | CASEMGMT ---
Assessment- SW completed assessment with patient at bedside. SW also confirmed her addresses and phone numbers for her and her children Living situation- Patient lives alone in a 1 story home with 4 entry steps. PCP: Dr Camelia Hess Specialists: Dr Mitzy Parson-Urology and Dr Arango- Oncology Pharmacy: [facility] DME: wheeled walker, motorized wheelchair, wheelchair, grab bars in bathroom, raised toilet seat, and a lift (she said if she would fall the lift helps get her back up) ADL's/IADL's: Prior to this past week when she started feeling badly she was independent with bathing, dressing, toileting, rib cutter, bills, and medications. She also drives. This past week she has been weak and was using her wheelchair. Past SNF/rehab: None Past HH: None LW: She was not sure POA: She was not sure Plan: At this time patient does not want to look at a SNF list. SW told her SW will continue to follow. Lashell FRENCH MSW
[2019-10-08] MEDS: Ceftriaxone 1 GM/50 ML BAG IV (11:05)
[2019-10-08] MEDS: 0.9% Saline Lock 10 ML Syringe IV (11:05)
[2019-10-08 12:56] LABS: Bedside Glucose 352 mg/dL (70-110)
--- NOTE | 2019-10-08 15:10 | NURSING ---
This RN taking over care of pt at this time. Report received from Akua BROWN.
[2019-10-08] MEDS: Meclizine 12.5 MG Tablet PO (15:11)
--- NOTE | 2019-10-08 15:28 | PCM.PN.HOSP ---
Patient Problems: Active and Suspected Problems (Last Reviewed 06/26/19 @ 10:02 by Adeline Meade) Vertigo (Acute) UTI (urinary tract infection) (Acute) Falls (Acute) Leukopenia (Acute) Reason for Visit: Follow-up on acute on chronic dizziness. Subjective: Patient was seen and examined. She is still very dizzy with the least movement. She has been worked by PT and OT with David maneuvers. She feels dizzy from lying to sitting and also on standing. Her MRI of the brain was negative. 2d-ECHO echo shows EF of 60%, stage I diastolic dysfunction. Objective: Physical exam: General: Alert, Oriented x3, Cooperative, No apparent distress HEENT: Atraumatic, PERRLA, EOMI, Normocephalic Oral: Moist Mucosa Neck: Supple Lungs: Clear to auscultation, Normal air movement Cardiovascular: Regular rate, Regular Rhythm, Normal S1, Normal S2, No murmurs Abdomen: Bowel Sounds Present, Soft, Non Tender, Non-Distended, No Hepato-splenomegaly Extremities: No edema Skin: No rashes, No breakdown Musculoskeletal: No Tenderness to Palpation of Joints or Extremities Lymphatic: No Cervical, Supraclavicular, or Inguinal Adenopathy Neurological: Cranial nerves II-XII grossly intact Psych/Mental Status: Normal Affect, Appropriate Vitals/I&O's: Vital Signs Temp Pulse Resp BP Pulse Ox 98.7 F 82 16 136/61 H 93 10/08/19 14:35 10/08/19 14:35 10/08/19 14:35 10/08/19 14:35 10/08/19 14:35 Oxygen Delivery Method Room Air Weight: 108.2 kg Body Mass Index (BMI) 43.0 Orthostatic Vital Signs Start: 10/08/19 11:20 Freq: q24h Status: Active Protocol: Activity Type Activity Date Activity User E-Sign Co-Sign Detail Recorded Client Recorded Date Recorded By Document 10/08/19 11:17 [facility] [id number] 10/08/19 11:22 [facility] 10/08/19 11:17 Orthostatic Vitals Sitting -Blood Pressure (90/60-120/80) 161/67 H -Extremity Use Left Arm -Pulse Rate (60-100) 92 Lying -Blood Pressure (90/60-120/80) 151/70 H -Extremity Use Left Arm -Pulse Rate (60-100) 91 Intake and Output for Last 24 Hours 10/06/19 10/07/19 10/08/19 23:59 23:59 23:59 Intake Total 50 / 250 2190 / 2190 1520 / 1520 Output Total 700 / 700 1050 / 1050 Balance 50 / 50 1490 / 1490 470 / 470 Microbiology Past 72 Hours 10/06/19 15:00 Urine, Clean Catch Urine Culture - Final Presumptive E. coli Laboratory Results 10/07/19 17:54: POC Glucose 389 H 10/07/19 21:07: POC Glucose 327 H 10/08/19 06:32: POC Glucose 288 H 10/08/19 11:09: POC Glucose 352 H Current Medications Acetaminophen (Tylenol) 650 mg PO Q6H PRN PRN PRN Reason: Pain Score 1-10/Temp > 100.7 F Hydrocodone Bitart/Acetaminophen ([place] 5mg-325mg) 1 tablet PO Q6H PRN PRN PRN Reason: Pain Score 1-10/10 Last Admin: 10/08/19 03:39 Dose: 1 tablet Documented by: Aspirin (Aspirin, Baby) 81 mg PO DAILY@0800 [facility] Last Admin: 10/08/19 10:15 Dose: 81 mg Documented by: Cholecalciferol (Vitamin D (25mcg)) 5,000 unit PO DAILY [facility] Last Admin: 10/08/19 10:15 Dose: 5,000 unit Documented by: Enoxaparin Sodium (Lovenox) 40 mg SC DAILY@0600 [facility] Last Admin: 10/08/19 05:15 Dose: 40 mg Documented by: Famotidine (Pepcid) 20 mg PO BID [facility] Last Admin: 10/08/19 10:16 Dose: 20 mg Documented by: Heparin Sodium (Beef Lung) () 50 units IV UD PRN PRN Reason: Port-a-Cath (VAD)Heparin Flush Sodium Chloride () 250 mls @ 15 mls/hr IV .[id number] PRN PRN Reason: Additional IVPB Infusion Ceftriaxone Sodium (Rocephin) 1 gm in 50 mls @ 100 mls/hr IV Q24 [facility] Last Infusion: 10/08/19 11:35 Dose: Infused Documented by: Sodium Chloride () 500 mls @ 15 mls/hr IV PRN PRN PRN Reason: Blood Transfusion Sodium Chloride () 250 mls @ 15 mls/hr IV .[id number] PRN PRN Reason: Saline Flush Sodium Chloride () 250 mls @ 15 mls/hr IV .[id number] PRN PRN Reason: Additional IVPB Infusion Insulin Glargine (Lantus ([facility])) 55 units SC DAILY [facility] Last Admin: 10/08/19 10:15 Dose: 55 units Documented by: Insulin Human Lispro (Humalog Kwikpen ([facility])) 0 unit SC ACHS [facility]; Protocol Last Admin: 10/08/19 11:10 Dose: 4 units Documented by: Labetalol HCl (Trandate) 10 - 20 mg IV Q10M PRN PRN PRN Reason: to Maintain BP Goals Levothyroxine Sodium (Synthroid) 75 mcg PO DAILY@0600 [facility] Last Admin: 10/08/19 05:15 Dose: 75 mcg Documented by: Magnesium Oxide (Mag-Ox 400) 400 mg PO DAILY [facility] Last Admin: 10/08/19 10:16 Dose: 400 mg Documented by: Meclizine HCl (Antivert) 12.5 mg PO DAILY PRN PRN PRN Reason: VERTIGO Last Admin: 10/08/19 15:11 Dose: 12.5 mg Documented by: Metoprolol Succinate (Toprol Xl (Beta Elle)) 50 mg PO DAILY [facility] Last Admin: 10/08/19 10:16 Dose: 50 mg Documented by: Nutritional Formula (Lactose Free) (Glucerna Shake) 120 ml PO TIDCM [facility] Last Admin: 10/08/19 11:11 Dose: Not Given Documented by: Ondansetron HCl (Zofran) 4 mg IV Q8H PRN PRN PRN Reason: NAUSEA/VOMITING Pantoprazole Sodium (Protonix) 20 mg PO QODAY [facility] Last Admin: 10/08/19 10:16 Dose: 20 mg Documented by: Rosuvastatin Calcium (Crestor) 10 mg PO QODAY [facility] Last Admin: 10/08/19 10:15 Dose: 10 mg Documented by: Sodium Chloride () 10 - 40 ml IV UD PRN PRN Reason: Port-a-Cath (VAD) Flush Last Admin: 10/08/19 11:05 Dose: 10 ml Documented by: Sodium Chloride (0.9% Nacl (Sterile) Posiflush) 10 - 40 ml IV UD PRN PRN Reason: Port access or dressing change Tamoxifen Citrate (Nolvadex) 20 mg PO BID [facility] Last Admin: 10/08/19 10:16 Dose: 20 mg Documented by: STROKE Vital Signs/Narrative: Vital Signs Temp Pulse Resp BP Pulse Ox 10/08/19 14:35 98.7 F 82 16 136/61 H 93 Medical Necessity - Tobacco Use Smoking Status: Never smoker Tobacco Use: Non-smoker Assessment/Plan All Active Problems (Last Reviewed 06/26/19 @ 10:02 by Adeline Meade) Back ache (Acute) Vertigo (Acute) UTI (urinary tract infection) (Acute) Falls (Acute) Leukopenia (Acute) Malignant neoplasm of upper-outer quadrant of right female breast (Resolved) Agranulocytosis secondary to cancer chemotherapy (Acute) Chemotherapy management, encounter for (Acute) Cancer related pain (Acute) Nocturnal leg cramps (Acute) Abnormal mammogram of right breast (Acute) 1. Acute on chronic vertigo, likely secondary to BPPV, persistent Not orthostatic. Stroke ruled out with negative MRI of the brain PT and OT consulted and working with patient Consult ENT for second opinion and management options 2. History of CLL/metastatic breast CA, follows up with oncology in the outpatient Continue on tamoxifen 3. Type II DM, on home Lantus, continue on home insulin regimen Blood glucose checks with low-dose insulin sliding scale 4. Hypothyroidism, continue on levothyroxine 5. Hypertension, controlled, would continue on metoprolol 50 mg daily Hold off on lisinopril for now 6. DVT Px- Lovenox SC Inpatient E&M: 26549 Subs Hosp L2
--- NOTE | 2019-10-08 16:42 | PCM.PN.BLA ---
Progress Note Asked to see the patient at the request of Dr. Finney for dizziness. History of present illness: Patient is a 73-year-old white female who reports that she has had dizziness for years. This usually occurs when she gets out of bed. She reports having positional vertigo in the past where she could roll over in the bed and experience room spinning. 1 week ago today, she rolled to the side of the bed and sat up. At that point she was doing fine. She got up and started walking at which point she fell. She reports the feeling of being pushed over from the side. All throughout last week she had fallen multiple times and also at some point had some vomiting. When things were not getting better she presented to the hospital. She has been found to have a UTI. She is now undergone CT and MRI of the brain. She denies any new hearing loss or ringing in her ears. She has not experienced any hearing loss while she was having dizziness 1 week ago. Past Medical History Past Medical History (Chronic Problems): Chronic Problems (Last Reviewed 06/26/19 @ 10:02 by Adelien Meade) HTN (hypertension) (Chronic) H/O BREAST CANCER (Chronic) Diabetes mellitus (Chronic) Obesities, morbid (Chronic) CLL (chronic lymphocytic leukemia) (Chronic) Hyperlipidemia (Chronic) Hypothyroid (Chronic) H/O cancer of uterus (Chronic) Breast cancer, right breast (Chronic) Stage IV carcinoma of breast (Chronic) Cancer, metastatic to bone (Chronic) Lump of right breast (Chronic) Breast density (Chronic) Medical History: Medical History (Last Reviewed 06/26/19 @ 10:02 by Adeline Meade) Diabetes E11.9 History of breast cancer Z85.3 Hypercholesteremia E78.00 Sleep apnea G47.30 Vertigo R42 left leg fx repair Allergies lovastatin Adverse Reaction (Verified 10/06/19 13:41) MUSCLE CRAMPS IN LEGS nickel [Nickel] Adverse Reaction (Verified 10/06/19 13:41) Rash Home Medications: Ambulatory Orders Medication Instructions Recorded Aspirin [Aspirin, Baby] 81 mg PO DAILY@0800 07/30/13 Meclizine HCl [Antivert] 12.5 mg PO DAILY PRN PRN 07/30/13 Metoprolol(XL)Succ [Toprol Xl 100 mg PO DAILY 07/30/13 (Beta Elle)] Cholecalciferol (VIT D3) [Vitamin 5,000 unit PO DAILY 03/24/14 D3] Enalapril Maleate [Vasotec] 20 mg PO DAILY 03/24/14 Rosuvastatin Calcium [Crestor] 10 mg PO QODAY 03/24/14 Levothyroxine [Synthroid] 100 mcg PO DAILY 09/08/14 Multivitamins,Therapeutic 1 tab PO DAILY 09/08/14 [Multivitamin] Omeprazole [Prilosec] 20 mg PO QODAY 01/05/15 Insulin Detemir [Levemir (BKC)] 50 units SC DAILY 10/03/16 Magnesium Oxide [Mag-Ox 400] 400 mg PO DAILY 30 Days #30 tab 10/24/17 Tamoxifen Citrate [Nolvadex] 20 mg PO BID 30 Days #60 tab 07/30/18 Hydrocodone Bitart/Apap 5-325 1 tab PO Q6H PRN PRN #90 tab 08/01/19 [[place] 5/325] Vitamin B-12 500 mg PO BID 10/06/19 Surgical History: Surgical History (Last Reviewed 06/26/19 @ 10:02 by Adeline Meade) H/O arthroscopy of left knee Z98.890 TORN MINISCUS REPAIR H/O breast surgery Z98.890 H/O: hysterectomy Z90.710 H/O: hysterectomy Z90.710 History of cataract extraction Z98.49 RIGHT MAR [address] Hollie DICK History of right breast biopsy Onset Date: ~06/19/18 Z98.890 Hx of cholecystectomy Z90.49 S/P lumpectomy, right breast Z98.890 Surgical History: cholecystectomy, hysterectomy - Lumpectomy of the right breast, - - Status post cataract extraction, lumpectomy Psychiatric History: No pertinent psych hx 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 Lives: Alone Smoking Status: Never smoker Tobacco Use: Non-smoker Alcohol: None Drugs: None - *Family History Maternal Family History: Family History (Last Reviewed 06/26/19 @ 10:02 by Adeline Meade) Father Heart disease Hypertension Mother Rheumatoid arthritis Skin cancer Brother Melanoma History Items: Cancer - skin Paternal Family History: Family History (Last Reviewed 06/26/19 @ 10:02 by Adeline Meade) Father Heart disease Hypertension Mother Rheumatoid arthritis Skin cancer Brother Melanoma History Items: Heart Disease - from massive heart attack at age 62., Hypertension Review of Systems Constitutional: Reports: Weakness, Fatigue. Denies: Anorexia, Chills, Fever, Weight Change Eyes: Denies: Blurred vision, Cataracts, Conjunctivae Inflammation, Pain, Redness HEENT: Denies: Difficulty Hearing, Difficulty Swallowing, Head Aches, Hearing Changes, Sinus Congestion, Sinus Drainage Cardiovascular: Denies: Chest Pain, Claudication, Orthopnea, Palpitations Respiratory: Denies: Cough, Hemoptysis, Shortness of breath at rest, Shortness of breath upon exertion, Sputum production Gastrointestinal: Denies: Abdominal Pain, Constipation, Hematemesis, Hematochezia, Nausea, Vomiting Genitourinary: Denies: Dysuria Musculoskeletal: Denies: Joint Pain, Joint Tenderness Skin: Denies: Rash, Wounds Neurological: Reports: Balance problems, - - vertigo Psychiatric: Denies: Anxiety, Depression, Homicidal Ideations, Suicidal Ideations Hematologic/ Lymphatic: Denies: Easy Bruising, Easy Bleeding Physical exam: The patient is awake alert in no acute distress Scalp and skull are normal Tympanic membrane external auditory canals within normal limits bilaterally. Nasal exam reveals no purulence or bleeding. Mouth oropharynx reveals no masses ulcerations or lesions. Palate elevates symmetrically. Tongue protrusion is midline. Neck is supple no adenopathy. Miguel-Hallpike is negative for rotary nystagmus bilaterally. Patient was then tested for horizontal canal lithiasis which was also negative. When moving from completely supine to sitting quickly, the patient experienced dizziness and lightheadedness lasting seconds. Orthostatic measurements were not taken. Assessment: Dizziness. She does not have active canalithiasis (BPPV) at this time. David maneuvers would not be helpful unless she does have canalithiasis. I suspect that she does have some degree of orthostatic hypotension. Plan: I would continue physical therapy, hydration and treatment for her UTI. STROKE Vital Signs/Narrative: Vital Signs Temp Pulse Resp BP Pulse Ox 10/08/19 15:00 84 10/08/19 14:35 98.7 F 82 16 136/61 H 93
[2019-10-08 16:51] LABS: Bedside Glucose 420 mg/dL (70-110)
[2019-10-08 21:25] LABS: Bedside Glucose 365 mg/dL (70-110)
[2019-10-09] VITALS (10 sets, daily range): BP systolic 141–156; BP diastolic 67–86; PULSE 80–94; RESP 17–18; TEMP 36.8–37.1; O2SAT 95–97
[2019-10-09] MEDS: Levothyroxine 75 MCG Tablet PO (05:09)
[2019-10-09] MEDS: Enoxaparin 40 MG/0.4 ML Syringe SC (05:09)
[2019-10-09] MEDS: Insulin Lispro 100 UNIT/ML INSULN.PEN SC ×2 (06:32→12:01)
[2019-10-09 06:45] LABS: Bedside Glucose 264 mg/dL (70-110)
[2019-10-09] MEDS: Aspirin 81 MG TAB.CHEW PO (08:44)
[2019-10-09] MEDS: Glucerna Shake 120 ML LIQUID PO ×2 (08:44→12:00)
[2019-10-09 09:18] LABS: Absolute Neutrophil Count 2.1 X10^3/uL (2.0-7.7); Basophil# 0.01 X10^3/uL; Basophil% 0.3 % (0-1); Eosinophil# 0.02 X10^3/uL; Eosinophils% 0.6 % (0-5); Hematocrit 26.9 % (37-47); Hemoglobin 8.5 g/dL (12.0-15.0); Lymphocyte % 36.6 % (19-41); Mean Corp Hgb Conc 31.6 g/dL (32-36); Mean Corpuscular Hgb 33.1 pg (27.0-32.0); Mean Corpuscular Volume 104.7 fL (81-99); Mean Platelet Vol. 10.3 fl (6.2-12.0); Monocyte# 0.09 X10^3/uL; Monocyte% 2.5 % (0-10); NRBC Flagged by Analyzer 0 % (0-5); Neutrophil # 2.11 X10^3/uL (2.7-7.7); Neutrophil % 59.4 % (47-70); POSITIVE MORPHOLOGY YES; Platelet Count 127 K/mm3 (150-450); RBC Distribution Width CV 14.7 % (11.6-14.6); RBC Distribution Width SD 57.1 fl (35.1-43.9); Red Blood Count 2.57 M/mm3 (4.2-5.4); White Blood Count 3.6 K/mm3 (4.4-11.0)
[2019-10-09 09:21] LABS: Differential Indicated SCAN CRITERIA MET
[2019-10-09 09:36] LABS: Reactive Lymphocyte RARE
[2019-10-09] MEDS: Ceftriaxone 1 GM/50 ML BAG IV (10:03)
[2019-10-09 10:07] LABS: ALB/GLOB Ratio 0.5 RATIO (0.9-2.4); AST(SGOT) 23 U/L (15-37); Alanine Aminotransfer ALT/SGPT 33 U/L (13-56); Albumin, Serum 1.8 g/dL (3.2-5.0); Alkaline Phosphatase 60 U/L (45-117); Anion Gap 6 (5-15); BUN 11 mg/dL (7-18); BUN/Creat Ratio 13.8 RATIO (10-20); Calcium,Total 8.1 mg/dL (8.5-10.1); Chloride 103 mmol/L (98-107); EST Glomerular Filtration Rate 75 mL/min (>60); Est Glom Filt Rate - Afr Amer 91 mL/min (>60); Estimated Creatinine Clearance 51.01 ml/min; Globulin 3.7 g/dL (2.2-4.2); Glucose 308 mg/dL (74-106); Potassium 3.5 mmol/L (3.5-5.1); Protein, Total 5.5 g/dL (6.4-8.2); Sodium Level 137 mmol/L (136-145)
[2019-10-09] MEDS: Famotidine 20 MG Tablet PO (10:07)
[2019-10-09] MEDS: Tamoxifen 10 MG Tablet 20 MG PO (10:07)
[2019-10-09] MEDS: Magnesium Oxide 400 MG Tablet PO (10:07)
[2019-10-09] MEDS: 0.9% Saline Lock 10 ML Syringe IV ×2 (10:07→16:43)
[2019-10-09] MEDS: Metoprolol(XL)Succ 50 MG Tablet PO (10:08)
[2019-10-09 12:06] LABS: Bedside Glucose 388 mg/dL (70-110)
--- NOTE | 2019-10-09 12:54 | CASEMGMT ---
LUANA spoke with patient as she had questions about going to a retirement. LUANA answered her questions and she asked SW to give her a list. LUANA gave her a list of local facilities. She would like TCU. [facility]NA spoke with [facility] and they would have a bed for her. LUANA spoke with patient letting her know. She is not on chemo, but she is taking a pill twice a day. [facility]UANA notified [facility] of this information. Patient will also need a COVID test. LUANA will notify physician. Lashell FRENCH MSW
--- NOTE | 2019-10-09 13:33 | PCM.TXEXTCAR ---
- Diet 10/07/19 14:44 Diet: Consistent Carb - Calorie Controlled Food consistency:: Regular Liquid Consistency:: Regular/Thin Dietary Modifications:: Cardiac / Heart Healthy Is pt able to select menu?: Yes How many daily calories?: 2000 calorie - Routine Orders/Code Status Keep PO Greater than or Equal to (%): 94 Routine Lab Work: CBC - within 3 days, BMP - within 3 days - Therapies Weight Bearing: Weight bearing as tolerated Physical Therapy: Eval and Treat Occupational Therapy: Eval and Treat - Problem/Diagnosis (1) Vertigo Status: Acute Current Visit: Yes (2) HTN (hypertension) Status: Chronic Current Visit: No (3) Diabetes mellitus Status: Chronic Current Visit: No (4) CLL (chronic lymphocytic leukemia) Status: Chronic Current Visit: Yes (5) Hyperlipidemia Status: Chronic Current Visit: No (6) Hypothyroid Status: Chronic Current Visit: No (7) H/O cancer of uterus Status: Chronic Current Visit: No (8) Stage IV carcinoma of breast Status: Chronic Current Visit: No (9) Cancer, metastatic to bone Status: Chronic Current Visit: Yes - Allergies/Procedures Done in Hospital Allergies/Adverse Reactions: Allergies lovastatin Adverse Reaction (Verified 10/06/19 13:41) MUSCLE CRAMPS IN LEGS nickel [Nickel] Adverse Reaction (Verified 10/06/19 13:41) Rash Procedures: 2-D Echocardiogram - Type of Care/Length of Stay Estimated LOS: Convalescent Care Less Than 30 days Type of Care Needed: Skilled Rehab Potential: Good Prognosis: Good - Additional Orders/Day of Discharge Day of Discharge: 10/09/19 - Dietary and Speech Recommendations Dietitian Recommendations/Changes: Will change diet to 2000 calorie/Cardiac with Consistent-Carbohydrates. Continue Glucerna Shake with medpass as tolerated; will d/c as intake established adequate at meals. - Follow Up Care Primary Care Physician: Audra Peterson MD [STAFF PHYSICIAN] - Please follow up with your Primary Care Physician in: ewa 1-2 weeks Please Follow Up With: Camelia Estrada When: as scheduled
--- NOTE | 2019-10-09 13:38 | DS.PCM_ITS ---
Discharge Date and Diagnosis - Problem List Patient Problems: Active and Suspected Problems (Last Reviewed 06/26/19 @ 10:02 by Adeline Meade) Debility (Acute) Dizziness (Acute) Orthostatic hypotension (Acute) Date of Admission: 10/06/19 Date of Discharge: 10/09/19 - Primary Discharge Diagnosis Acute Problems: Active Problems (Last Reviewed 06/26/19 @ 10:02 by Adeline Meade) Acute on chronic vertigo Morbid obesity E. coli UTI - Secondary Discharge Diagnosis Chronic Problems: Chronic Problems (Last Reviewed 06/26/19 @ 10:02 by Adeline Meade) HTN (hypertension) (Chronic) H/O BREAST CANCER (Chronic) Diabetes mellitus (Chronic) Obesities, morbid (Chronic) CLL (chronic lymphocytic leukemia) (Chronic) Hyperlipidemia (Chronic) Hypothyroid (Chronic) H/O cancer of uterus (Chronic) Breast cancer, right breast (Chronic) Stage IV carcinoma of breast (Chronic) Cancer, metastatic to bone (Chronic) Lump of right breast (Chronic) Breast density (Chronic) Hospital Course and Treatment Imaging Results: Clinical Impression(s) from Imaging Studies Brain CT 10/06/19 14:16 IMPRESSION: 1. No acute findings. 2. White matter hypodensities, possibly chronic ischemic etiology. If evaluation for intracranial metastatic disease is desired MR or CT with contrast are recommended. Electronically Signed: Dez Parks, at 15:34 EDT Tel , Service support , Chest X-Ray 10/06/19 14:16 IMPRESSION: Normal x-ray examination of the chest. Electronically Signed: Dez Parks at 16:07 EDT Tel , Service support , Lumbar Spine X-Ray 10/06/19 14:18 IMPRESSION: Unremarkable plain films of the lumbar spine. If definitive osseous imaging is desired refer to advanced modalities such as CT or MR. Osteoporosis. Electronically Signed: Dez Parks at 16:10 EDT Tel , Service support , Pelvis X-Ray 10/06/19 14:18 IMPRESSION: Normal x-ray examination of the pelvis. Electronically Signed: Dez Parks, at 16:11 EDT Tel , Service support , Thoracic Spine X-Ray 10/06/19 14:18 IMPRESSION: Unremarkable plain films of the thoracic spine. Please note that in a patient with known bone cancer plain films are not sufficient for definitive diagnosis. Refer to advanced modalities such as CT or MR. Electronically Signed: Dez Parks, at 16:09 EDT Tel , Service support , Brain MRI 10/07/19 08:00 IMPRESSION: No acute intracranial abnormality. Moderate chronic microvascular ischemic changes. Electronically Signed: Zach Ruiz MD at 10:06 EDT Tel , Service support , ENT Operations: None Procedures: 2-D Echocardiogram Summary of Care Provided: 73 year old F with past medical history of CLL, hypertension, Type DM, metastatic breast cancer, mets to the bone, hypercholesterolemia, chronic vertigo who comes in with complains of dizziness ongoing for about a week. Patient states that she has been progressively weak and dizzy anytime she gets up and has been falling. She fell twice a week prior to admission. Over the days prior to admission, she had been using the wheelchair. She was brought to the emergency room because her children got concerned over her progressive dizziness. Denied any hearing loss, tinnitus. No change in her medications. Her dizziness is described as spinning, worse when she gets up and also when she moves her head. Work-up for acute stroke was negative with MRI of the brain. Patient was managed on IV fluids. Orthostatic vitals were negative. ENT was consulted, recommended continuation of IV fluids. No new recommendations. He was seen by PT and OT and skilled for discharge to care home facility. Patient Problems: Active and Suspected Problems (Last Reviewed 06/26/19 @ 10:02 by Adeline Meade) Debility (Acute) Dizziness (Acute) Orthostatic hypotension (Acute) Subjective: On the day of discharge, patient was seen and examined. Denied any new complaints. Dizziness is much improved. Objective: Physical exam: General: Alert, Oriented x3, Cooperative, No apparent distress HEENT: Atraumatic, PERRLA, EOMI, Normocephalic Oral: Moist Mucosa Neck: Supple Lungs: Clear to auscultation, Normal air movement Cardiovascular: Regular rate, Regular Rhythm, Normal S1, Normal S2, No murmurs Abdomen: Bowel Sounds Present, Soft, Non Tender, Non-Distended, No Hepato- splenomegaly Extremities: No edema Skin: No rashes, No breakdown Musculoskeletal: No Tenderness to Palpation of Joints or Extremities Lymphatic: No Cervical, Supraclavicular, or Inguinal Adenopathy Neurological: Cranial nerves II-XII grossly intact Psych/Mental Status: Normal Affect, Appropriate - Physical Exam Vitals/I&O's: Vital Signs Temp Pulse Resp BP Pulse Ox 98.8 F 86 18 143/74 H 96 10/09/19 09:10 10/09/19 11:00 10/09/19 09:10 10/09/19 10:08 10/09/19 09:10 Oxygen Delivery Method Room Air Weight: 107.7 kg Body Mass Index (BMI) 43.0 Orthostatic Vital Signs Start: 10/08/19 11:20 Freq: q24h Status: Active Protocol: Activity Type Activity Date Activity User E-Sign Co-Sign Detail Recorded Client Recorded Date Recorded By Document 10/09/19 05:11 [id number] 10/09/19 05:15 PEGGY 10/09/19 05:11 Orthostatic Vitals Standing -Blood Pressure (90/60-120/80 mm Hg) 141/72 H -Extremity Use Left Arm -Pulse Rate (60-100 beats/min) 92 Sitting -Blood Pressure (90/60-120/80 mm Hg) 150/81 H -Extremity Use Left Arm -Pulse Rate (60-100 beats/min) 90 Lying -Blood Pressure (90/60-120/80 mm Hg) 152/69 H -Extremity Use Left Arm -Pulse Rate (60-100 beats/min) 85 Intake and Output for Last 24 Hours 10/07/19 10/08/19 10/09/19 23:59 23:59 23:59 Intake Total 2190 / 2190 2140 / 2140 510 / 510 Output Total 700 / 700 1250 / 1250 500 / 500 Balance 1490 / 1490 890 / 890 Microbiology Past 72 Hours 10/06/19 15:00 Urine, Clean Catch Urine Culture - Final Presumptive E. coli Laboratory Results 10/08/19 16:22: POC Glucose 420 H 10/08/19 21:11: POC Glucose 365 H 10/09/19 06:31: POC Glucose 264 H 10/09/19 09:09: WBC 3.6 L, RBC 2.57 L, Hgb 8.5 L, Hct 26.9 L, MCV 104.7 H, MCH 33.1 H, MCHC 31.6 L, RDW Std Deviation 57.1 H, RDW Coeff of Janet 14.7 H, Plt Count 127 L, MPV 10.3, Immature Gran % (Auto) 0.600, Neut % (Auto) 59.4, Lymph % (Auto) 36.6, Branch % (Auto) 2.5, Eos % (Auto) 0.6, Baso % (Auto) 0.3, Absolute Neuts (auto) 2.1, Absolute Lymphs (auto) 1.30, Nucleated RBC % 0, Reactive Lymphocytes RARE 10/09/19 09:09: Sodium 137, Potassium 3.5, Chloride 103, Carbon Dioxide 28.0, Anion Gap 6, BUN 11, Creatinine 0.80, Estim Creat Clear Calc 51.01, Est GFR (MDRD) Af Amer 91, Est GFR (MDRD) Non-Af 75, BUN/Creatinine Ratio 13.8, Glucose 308 H, Calcium 8.1 L, Total Bilirubin 0.50, AST 23, ALT 33, Alkaline Phosphatase 60, Total Protein 5.5 L, Albumin 1.8 L, Globulin 3.7, Albumin/Globulin Ratio 0.5 L 10/09/19 11:59: POC Glucose 388 H 10/09/19 13:28: COVID-19 (KEANU) Pending Current Medications Acetaminophen (Tylenol) 650 mg PO Q6H PRN PRN PRN Reason: Pain Score 1-10/Temp > 100.7 F Hydrocodone Bitart/Acetaminophen ([place] 5mg-325mg) 1 tablet PO Q6H PRN PRN PRN Reason: Pain Score 1-10/10 Last Admin: 10/08/19 03:39 Dose: 1 tablet Documented by: Aspirin (Aspirin, Baby) 81 mg PO DAILY@0800 [facility] Last Admin: 10/09/19 08:44 Dose: 81 mg Documented by: Cholecalciferol (Vitamin D (25mcg)) 5,000 unit PO DAILY [facility] Last Admin: 10/09/19 10:08 Dose: 5,000 unit Documented by: Enoxaparin Sodium (Lovenox) 40 mg SC DAILY@0600 [facility] Last Admin: 10/09/19 05:09 Dose: 40 mg Documented by: Famotidine (Pepcid) 20 mg PO BID [facility] Last Admin: 10/09/19 10:07 Dose: 20 mg Documented by: Heparin Sodium (Beef Lung) () 50 units IV UD PRN PRN Reason: Port-a-Cath (VAD)Heparin Flush Sodium Chloride () 250 mls @ 15 mls/hr IV .[id number] PRN PRN Reason: Additional IVPB Infusion Ceftriaxone Sodium (Rocephin) 1 gm in 50 mls @ 100 mls/hr IV Q24 [facility] Last Infusion: 10/09/19 12:00 Dose: Infused Documented by: Sodium Chloride () 500 mls @ 15 mls/hr IV PRN PRN PRN Reason: Blood Transfusion Sodium Chloride () 250 mls @ 15 mls/hr IV .[id number] PRN PRN Reason: Saline Flush Sodium Chloride () 250 mls @ 15 mls/hr IV .[id number] PRN PRN Reason: Additional IVPB Infusion Insulin Glargine (Lantus (Bk)) 55 units SC DAILY [facility] Last Admin: 10/09/19 10:08 Dose: 55 units Documented by: Insulin Human Lispro (Humalog Kwikpen (Bk)) 0 unit SC ACHS [facility]; Protocol Last Admin: 10/09/19 12:01 Dose: 4 units Documented by: Labetalol HCl (Trandate) 10 - 20 mg IV Q10M PRN PRN PRN Reason: to Maintain BP Goals Levothyroxine Sodium (Synthroid) 75 mcg PO DAILY@0600 [facility] Last Admin: 10/09/19 05:09 Dose: 75 mcg Documented by: Magnesium Oxide (Mag-Ox 400) 400 mg PO DAILY [facility] Last Admin: 10/09/19 10:07 Dose: 400 mg Documented by: Meclizine HCl (Antivert) 12.5 mg PO DAILY PRN PRN PRN Reason: VERTIGO Last Admin: 10/08/19 15:11 Dose: 12.5 mg Documented by: Metoprolol Succinate (Toprol Xl (Beta Elle)) 50 mg PO DAILY [facility] Last Admin: 10/09/19 10:08 Dose: 50 mg Documented by: Nutritional Formula (Lactose Free) (Glucerna Shake) 120 ml PO TIDCM [facility] Last Admin: 10/09/19 12:00 Dose: 120 ml Documented by: Ondansetron HCl (Zofran) 4 mg IV Q8H PRN PRN PRN Reason: NAUSEA/VOMITING Pantoprazole Sodium (Protonix) 20 mg PO QODAY [facility] Last Admin: 10/08/19 10:16 Dose: 20 mg Documented by: Rosuvastatin Calcium (Crestor) 10 mg PO QODAY [facility] Last Admin: 10/08/19 10:15 Dose: 10 mg Documented by: Sodium Chloride () 10 - 40 ml IV UD PRN PRN Reason: Port-a-Cath (VAD) Flush Last Admin: 10/09/19 10:07 Dose: 10 ml Documented by: Sodium Chloride (0.9% Nacl (Sterile) Posiflush) 10 - 40 ml IV UD PRN PRN Reason: Port access or dressing change Tamoxifen Citrate (Nolvadex) 20 mg PO BID [facility] Last Admin: 10/09/19 10:07 Dose: 20 mg Documented by: Discharge Diet: Low fat/ Low Cholesterol, 2000 mg Sodium Diet, Carb Control Diet Discharge Activity: Return to Normal Activity Home Medications: Medications to take at Discharge Aspirin [Aspirin, Baby] 81 mg PO DAILY@0800 07/30/13 Meclizine HCl [Antivert] 12.5 mg PO DAILY PRN PRN 07/30/13 Cholecalciferol (VIT D3) [Vitamin D3] 5,000 unit PO DAILY 03/24/14 Rosuvastatin Calcium [Crestor] 10 mg PO QODAY 03/24/14 Levothyroxine [Synthroid] 100 mcg PO DAILY 09/08/14 Multivitamins,Therapeutic [Multivitamin] 1 tab PO DAILY 09/08/14 Omeprazole [Prilosec] 20 mg PO QODAY 01/05/15 Hydrocodone Bitart/Apap 5-325 [[place] 5/325] 1 tab PO Q6H PRN PRN #90 tab 08/01/19 Vitamin B-12 500 mg PO BID 10/06/19 Acetaminophen [Tylenol Tablet] 650 mg PO Q6H PRN PRN tab 10/09/19 Glucerna Shake 120 ml PO TIDCM 10/09/19 Insulin Glargine [Lantus SoloStar Pen] 60 units SUBCUT DAILY 10/09/19 Insulin Lispro [Humalog KwikPen] See Protocol SUBCUT ACHS insuln.pen 10/09/19 Magnesium Oxide [Mag-Ox 400] 400 mg PO DAILY 10/09/19 Metoprolol(XL)Succ [Toprol Xl (Beta Elle)] 50 mg PO DAILY 10/09/19 Tamoxifen Citrate [Nolvadex] 20 mg PO BID 10/09/19 Primary Care Physician: Audra Peterson MD [STAFF PHYSICIAN] - Please follow up with your Primary Care Physician in: ewa 1-2 weeks Please Follow Up With: Camelia Estrada When: as scheduled Disposition: Assisted facility Minutes spent on discharge:: 40 Patient Condition:: Stable Medical Necessity - Tobacco Use Smoking Status: Never smoker Tobacco Use: Non-smoker Meaningful Use Info Meaningful Use Diagnoses (Choose all that apply): None applicable Inpatient E&M: 25670 Disch Hosp
--- NOTE | 2019-10-09 14:10 | PHA.DC.MR ---
Pharmacy Service has performed discharge medication reconciliation for this patient. The patient's discharge medication list was reviewed for discrepancies and discrepancies were resolved. Home Medications Aspirin [Aspirin, Baby] 81 mg PO DAILY@0800 07/30/13 Meclizine HCl [Antivert] 12.5 mg PO DAILY PRN PRN 07/30/13 Cholecalciferol (VIT D3) [Vitamin D3] 5,000 unit PO DAILY 03/24/14 Rosuvastatin Calcium [Crestor] 10 mg PO QODAY 03/24/14 Levothyroxine [Synthroid] 100 mcg PO DAILY 09/08/14 Multivitamins,Therapeutic [Multivitamin] 1 tab PO DAILY 09/08/14 Omeprazole [Prilosec] 20 mg PO QODAY 01/05/15 Magnesium Oxide [Mag-Ox 400] 400 mg PO DAILY 30 Days #30 tab 10/24/17 Tamoxifen Citrate [Nolvadex] 20 mg PO BID 30 Days #60 tab 07/30/18 Hydrocodone Bitart/Apap 5-325 [[place] 5/325] 1 tab PO Q6H PRN PRN #90 tab 08/01/19 Vitamin B-12 500 mg PO BID 10/06/19 Acetaminophen [Tylenol Tablet] 650 mg PO Q6H PRN PRN tab 10/09/19 Glucerna Shake 120 ml PO TIDCM liquid 10/09/19 Insulin Glargine [Lantus SoloStar Pen] 60 units SUBCUT DAILY pen 10/09/19 Insulin Lispro [Humalog KwikPen] See Protocol SUBCUT ACHS insuln.pen 10/09/19 Metoprolol(XL)Succ [Toprol Xl (Beta Elle)] 50 mg PO DAILY tab 10/09/19
--- NOTE | 2019-10-09 15:12 | CASEMGMT ---
Patient is all set for discharge to TCU pending her COVID test results. SW did notify patient that she will be in quarantine for 14 days in TCU. Plan: d/c to [facility] TCU under skilled level of care. Lashell FRENCH MSW
--- NOTE | 2019-10-09 16:47 | NURSING ---
Report called to nurse Laura for pt transfer to TCU.
== END 2019-10-09 16:55 | disposition skilled nursing facility (03) | DRG 312 ==
LOC: ED 15:39 → PCU 16:07
PROVIDERS: Admitting Provider Internal Medicine; Emergency Provider Emergency Medicine; Visit Provider Internal Medicine
DX: I95.1 Orthostatic hypotension (principal); N39.0 Urinary tract infection, site not specified; C79.51 Secondary malignant neoplasm of bone; C91.10 Chronic lymphocytic leukemia of B-cell type not having achieved remission; Z68.41 Body mass index [BMI] 40.0-44.9, adult; B96.20 Unspecified Escherichia coli [E. coli] as the cause of diseases classified elsewhere; E03.9 Hypothyroidism, unspecified; E11.69 Type 2 diabetes mellitus with other specified complication; E66.01 Morbid (severe) obesity due to excess calories; E78.00 Pure hypercholesterolemia, unspecified; G89.3 Neoplasm related pain (acute) (chronic); I10 Essential (primary) hypertension; I25.2 Old myocardial infarction; Z85.3 Personal history of malignant neoplasm of breast; Z79.4 Long term (current) use of insulin; Z79.890 Hormone replacement therapy; Z79.899 Other long term (current) drug therapy; Z85.42 Personal history of malignant neoplasm of other parts of uterus; Z90.710 Acquired absence of both cervix and uterus; G47.33 Obstructive sleep apnea (adult) (pediatric); Z91.81 History of falling; Z79.82 Long term (current) use of aspirin; R53.81 Other malaise
CPT/HCPCS: 70450; 70551; 71045; 72070; 72072; 72100; 72170; 80048; 80053; 80061; 81001; 82962; 83036; 84484; 85025; 87086; 87088; 87186; 87635; 93005; 93306; 94762; 97110; 97162; 97166; 97802; 99251; 99285; C9803; J7030; J7050; A4216; G0463; U0003

== ENCOUNTER 2019-10-09 17:14 | Inpatient (IN) | payer MEDICARE, OTHER, SELFPAY ==
[2017-05-30 11:02] VITALS: BMI 46.8
[2019-10-08 13:29] VITALS: BMI 43.0
[2019-10-09 17:20] VITALS: BP 172/73; PULSE 80; RESP 14; TEMP 36.4; O2SAT 94
[2019-10-09 18:13] VITALS: BMI 43.9
[2019-10-09 18:19] VITALS: BMI 44.0
--- NOTE | 2019-10-09 19:51 | CPS ---
Nasal swab order for COVID test changed to 10/09 13:28 because patient had test done on PCU at 10/08 13:28. COVID test must be done 24hrs apart so test will be done tomorrow.
[2019-10-09] MEDS: Glucerna Shake 120 ML LIQUID PO (20:08)
[2019-10-09] MEDS: Tamoxifen 10 MG Tablet 20 MG PO (20:08)
[2019-10-09] MEDS: Cyanocobalamin 500 MCG Tablet PO (20:08)
--- NOTE | 2019-10-09 21:49 | PCM.HP.STD ---
Problem List (1) Debility Status: Acute (2) Dizziness Status: Acute (3) Orthostatic hypotension Status: Acute (4) BPPV (benign paroxysmal positional vertigo) Status: Chronic (5) Breast cancer metastasized to bone Status: Chronic (6) Obstructive sleep apnea Status: Chronic (7) GERD (gastroesophageal reflux disease) Status: Chronic (8) Hypomagnesemia Status: Chronic (9) B12 deficiency Status: Chronic (10) UTI (urinary tract infection) Status: Acute (11) HTN (hypertension) Status: Chronic Qualifiers: (12) Diabetes mellitus Status: Chronic Qualifiers: (13) CLL (chronic lymphocytic leukemia) Status: Chronic (14) Hyperlipidemia Status: Chronic Qualifiers: (15) Hypothyroid Status: Chronic Qualifiers: History of Present Illness Date of Admission: 10/09/19 Chief Complaint: Here for rehabilitation, strengthening, prior to discharge home alone. 10/06/19 The patient is a 73 year old Female with below past medical history presented to [facility] with dizziness. 10/06/19 CT brain white matter hypodensities. 10/06/19 Chest X-ray normal. 10/06/19 X-ray lumbar spine osteoporosis. 10/06/19 X-ray pelvis normal. Worsening vertigo, unsteadiness x 5 days. Falls x 2, History of breast cancer with bony mets. Meclizine not helpful. Vertigo worse than ever. Oral Valium given, mildly helpful. UA consistent with UTI, urine culture sent, Rocephin IV given. 10/06/19 Admit to Hospital. Rule out posterior cerebral artery stroke as cause of dizziness. Hold Lisinopril for permissive hypertension. 10/07/19 MRI brain negative acute stroke, showed moderate chronic microvascular ischemic changes. 10/07/19 Echo Normal LV size. Left ventricular systolic function normal. EF 60%. Stage 1 diastolic dysfunction. Pulmonary artery systolic pressure 28mm HG. Bubble study negative for shunt. 10/07/19 ?BPPV as cause of dizziness. 10/08/19 Orthostatic vital signs negative. 10/08/19 Dr. Kruger thought NOT BPPV. but mild orthostatic hypotension. 10/09/19 Admit to TCU with debility, here for rehabilitation, strengthening, prior to discharge home alone. Past Medical History Past Medical History (Chronic Problems): Chronic Problems (Last Reviewed 06/26/19 @ 10:02 by Adeline Meade) BPPV (benign paroxysmal positional vertigo) (Chronic) Breast cancer metastasized to bone (Chronic) Obstructive sleep apnea (Chronic) GERD (gastroesophageal reflux disease) (Chronic) Hypomagnesemia (Chronic) B12 deficiency (Chronic) HTN (hypertension) (Chronic) H/O BREAST CANCER (Chronic) Diabetes mellitus (Chronic) Obesities, morbid (Chronic) CLL (chronic lymphocytic leukemia) (Chronic) Hyperlipidemia (Chronic) Hypothyroid (Chronic) H/O cancer of uterus (Chronic) Breast cancer, right breast (Chronic) Stage IV carcinoma of breast (Chronic) Cancer, metastatic to bone (Chronic) Lump of right breast (Chronic) Breast density (Chronic) Medical History: Medical History (Last Reviewed 06/26/19 @ 10:02 by Adeline Meade) Diabetes E11.9 History of breast cancer Z85.3 Hypercholesteremia E78.00 Sleep apnea G47.30 Vertigo R42 left leg fx repair Allergies lovastatin Adverse Reaction (Verified 10/06/19 13:41) MUSCLE CRAMPS IN LEGS nickel [Nickel] Adverse Reaction (Verified 10/06/19 13:41) Rash Home Medications: Ambulatory Orders Medication Instructions Recorded Aspirin [Aspirin, Baby] 81 mg PO DAILY@0800 07/30/13 Meclizine HCl [Antivert] 12.5 mg PO DAILY PRN PRN 07/30/13 Cholecalciferol (VIT D3) [Vitamin 5,000 unit PO DAILY 03/24/14 D3] Rosuvastatin Calcium [Crestor] 10 mg PO QODAY 03/24/14 Levothyroxine [Synthroid] 100 mcg PO DAILY 09/08/14 Multivitamins,Therapeutic 1 tab PO DAILY 09/08/14 [Multivitamin] Omeprazole [Prilosec] 20 mg PO QODAY 01/05/15 Hydrocodone Bitart/Apap 5-325 1 tab PO Q6H PRN PRN #90 tab 08/01/19 [[place] 5/325] Vitamin B-12 500 mg PO BID 10/06/19 Acetaminophen [Tylenol Tablet] 650 mg PO Q6H PRN PRN tab 10/09/19 Glucerna Shake 120 ml PO TIDCM 10/09/19 Insulin Glargine [Lantus SoloStar 60 units SUBCUT DAILY 10/09/19 Pen] Insulin Lispro [Humalog KwikPen] See Protocol SUBCUT ACHS 10/09/19 insuln.pen Magnesium Oxide [Mag-Ox 400] 400 mg PO DAILY 10/09/19 Metoprolol(XL)Succ [Toprol Xl 50 mg PO DAILY 10/09/19 (Beta Elle)] Tamoxifen Citrate [Nolvadex] 20 mg PO BID 10/09/19 Surgical History: Surgical History (Last Reviewed 06/26/19 @ 10:02 by Adeline Meade) H/O arthroscopy of left knee Z98.890 TORN MINISCUS REPAIR H/O breast surgery Z98.890 H/O: hysterectomy Z90.710 H/O: hysterectomy Z90.710 History of cataract extraction Z98.49 RIGHT MAR [address] Hollie DICK History of right breast biopsy Onset Date: ~06/19/18 Z98.890 Hx of cholecystectomy Z90.49 S/P lumpectomy, right breast Z98.890 Surgical History: cataract, cholecystectomy, hysterectomy - Lumpectomy of the right breast, - - Right breast lumpectomy, Left knee arthroscopy. Psychiatric History: No pertinent psych hx WIG COMBER History: No pertinent WIG COMBER history Lives: Alone Smoking Status: Never smoker Tobacco Use: Non-smoker Alcohol: None Drugs: None - *Family History Paternal Family History: Family History (Last Reviewed 06/26/19 @ 10:02 by Adeline Meade) Father Heart disease Hypertension Mother Rheumatoid arthritis Skin cancer Brother Melanoma History Items: Heart Disease - from massive heart attack at age 62., Hypertension Maternal Family History: Family History (Last Reviewed 06/26/19 @ 10:02 by Adeline Meade) Father Heart disease Hypertension Mother Rheumatoid arthritis Skin cancer Brother Melanoma History Items: Cancer - skin Review of Systems Constitutional: Denies: Chills, Fever, Weight Change HEENT: Denies: Head Aches, Sinus Congestion, Sinus Drainage Cardiovascular: Denies: Chest Pain, Palpitations Respiratory: Denies: Cough, Shortness of breath at rest, Sputum production Gastrointestinal: Denies: Abdominal Pain, Nausea, Vomiting Genitourinary: Denies: Dysuria Musculoskeletal: Denies: Joint Pain, Joint Tenderness Skin: Denies: Rash, Wounds Neurological: Reports: - - Dizziness.. Denies: Focal weakness, Numbness, Tingling Psychiatric: Denies: Anxiety, Depression, Homicidal Ideations, Suicidal Ideations Hematologic/ Lymphatic: Denies: Easy Bruising, Easy Bleeding VTE Information - Inpt Only VTE Present on Admission: No VTE Mechan Device Prophylaxis: Knee High SUDHEER Hose VTE Pharm Prophylaxis ordered?: Yes Patient Problems: Active and Suspected Problems (Last Reviewed 06/26/19 @ 10:02 by Adeline Meade) Debility (Acute) Dizziness (Acute) Orthostatic hypotension (Acute) - Physical Exam Vitals/I&O's: Vital Signs Temp Pulse Resp BP Pulse Ox 97.6 F L 80 14 172/73 H 94 10/09/19 17:20 10/09/19 17:20 10/09/19 17:20 10/09/19 17:20 10/09/19 17:20 Oxygen Delivery Method Room Air Weight: 108.998 kg Body Mass Index (BMI) 43.9 Intake and Output for Last 24 Hours 10/07/19 10/08/19 10/09/19 23:59 23:59 23:59 Intake Total 120 / 120 Balance 120 / 120 General: Alert, Oriented x3, Cooperative HEENT: Atraumatic, PERRLA, EOMI, Normocephalic Neck: Supple, No JVD, Negative Carotid Bruits Lungs: Clear to auscultation, Normal air movement Cardiovascular: Regular rate, No murmurs Abdomen: Bowel Sounds Present, Soft, Non Tender Extremities: No edema, Capillary Refill Less than 3 Seconds Skin: No rashes, No breakdown Musculoskeletal: No Tenderness to Palpation of Joints or Extremities Neurological: Cranial nerves II-XII grossly intact Psych/Mental Status: Normal Affect, Appropriate Current Medications Acetaminophen (Tylenol) 650 mg PO Q6H PRN PRN PRN Reason: Pain Score 1-10/Temp > 100.7 F Hydrocodone Bitart/Acetaminophen ([place] 5mg-325mg) 1 tablet PO Q6H PRN PRN PRN Reason: Pain Score 1-10/10 Aspirin (Aspirin, Baby) 81 mg PO DAILY@0800 [facility] Atorvastatin Calcium (Lipitor) 20 mg PO QODAY@2200 [facility] Calamine/Phenol (Calmoseptine Ointment) 1 applic TOPICAL BID [facility]; Protocol Cholecalciferol (Vitamin D (25mcg)) 5,000 unit PO DAILY [facility] Cyanocobalamin (Vitamin B12) 500 mcg PO BID [facility] Last Admin: 10/09/19 20:08 Dose: 500 mcg Documented by: Insulin Glargine (Lantus (Bkc)) 60 units SC DAILY [facility] Levothyroxine Sodium (Synthroid) 100 mcg PO DAILY [facility] Magnesium Oxide (Mag-Ox 400) 400 mg PO DAILY [facility] Meclizine HCl (Antivert) 12.5 mg PO DAILY PRN PRN PRN Reason: VERTIGO/DIZZINESS Metoprolol Succinate (Toprol Xl (Beta Elle)) 50 mg PO DAILY [facility] Multivitamins ([facility]itamin) [facility] Nutritional Formula (Lactose Free) (Glucerna Shake) 120 ml PO TIDCM [facility] Last Admin: 10/09/19 20:08 Dose: 120 ml Documented by: Nystatin (Mycostatin Powder) 1 applic TOPICAL BID [facility]; Protocol Pantoprazole Sodium (Protonix) 20 mg PO QODAY [facility] Tamoxifen Citrate (Nolvadex) 20 mg PO BID [facility] Last Admin: 10/09/19 20:08 Dose: 20 mg Documented by: Tuberculin PPD (Tubersol, Aplisol, Ppd) 5 tu ID X1 ONE Stop: 10/10/19 10:01 Tuberculin PPD (Tubersol, Aplisol, Ppd) 5 tu ID X1 ONE Stop: 10/17/19 10:01 Assessment/Plan All Active Problems (Last Reviewed 06/26/19 @ 10:02 by Adeline Meade) Back ache (Acute) Vertigo (Acute) UTI (urinary tract infection) (Acute) Falls (Acute) Leukopenia (Acute) Debility (Acute) Dizziness (Acute) Orthostatic hypotension (Acute) Malignant neoplasm of upper-outer quadrant of right female breast (Resolved) Agranulocytosis secondary to cancer chemotherapy (Acute) Chemotherapy management, encounter for (Acute) Cancer related pain (Acute) Nocturnal leg cramps (Acute) Abnormal mammogram of right breast (Acute) 73 year old female with below past medical history hospitalized for dizziness, posterior circulation stroke ruled out, either BPPV or mild orthostatic hypotension, admitted to TCU with debility, here for rehabilitation, strengthening, prior to discharge home alone. Debility - PT/OT. Pain - Tylenol 1000MG Q6H PRN pain (1-3), Oxycodone 2.5MG Q4H PRN pain (4-10). Bowel - Miralax 17GM daily, Senna/colace 1 tablet BID, Dulcolax 10MG VA daily PRN. Adult immunization - Administer Prevnar 13, Pneumovax 23, Fluzone as appropriate. DVT prophylaxis - Lovenox 40MG SC daily. Orthostatic hypotension - Normal Saline 75ML/hour overnight, see if she feels less dizzy. CV prophylaxis - Aspirin 81MG daily. Hyperlipidemia - Atorvastatin 20MG QHS. Vitamin D deficiency - Vitamin D3 5000IU daily. Vitamin B12 deficiency - Vitamin B12 500MCG BID. Nutrition - MVI daily, Glucerna Shake 120ML PO TID. Diabetes Mellitus II - Lantus 60 units QAM. Hypothyroidism - Levothyroxine 100MCG daily. Hypomagnesemia - Magnesium Oxide 400MG daily. Dizziness - Meclizine 25MG TID PRN. Skin irritation - Calmoseptine BID. Hypertension - Metoprolol succinate 50MG daily. Tinea Corporis - Nystatin powder BID. GERD - Pantoprazole 20MG every other day. Breast cancer bone mets - Tamoxifen 20MG BID.
[2019-10-10] MEDS: 0.9% Normal Saline 1,000 ML 75 ML IV ×2 (00:05→13:28)
[2019-10-10] MEDS: 0.9% Saline Lock 10 ML Syringe IV (00:08)
[2019-10-10 05:52] LABS: Absolute Lymphocyte Count 1.49 X10^3/uL (0.83-4.51); Absolute Neutrophil Count 1.9 X10^3/uL (2.0-7.7); Basophil# 0.01 X10^3/uL; Basophil% 0.3 % (0-1); Eosinophil# 0.02 X10^3/uL; Eosinophils% 0.6 % (0-5); Hematocrit 25.4 % (37-47); Hemoglobin 7.9 g/dL (12.0-15.0); Lymphocyte # 1.49 X10^3/ul (4.0); Lymphocyte % 42.7 % (19-41); Mean Corp Hgb Conc 31.1 g/dL (32-36); Mean Corpuscular Hgb 32.8 pg (27.0-32.0); Mean Corpuscular Volume 105.4 fL (81-99); Mean Platelet Vol. 10.5 fl (6.2-12.0); Monocyte# 0.08 X10^3/uL; Monocyte% 2.3 % (0-10); NRBC Flagged by Analyzer 0 % (0-5); Neutrophil # 1.87 X10^3/uL (2.7-7.7); Neutrophil % 53.5 % (47-70); POSITIVE MORPHOLOGY YES; Platelet Count 147 K/mm3 (150-450); RBC Distribution Width CV 14.7 % (11.6-14.6); RBC Distribution Width SD 57.1 fl (35.1-43.9); Red Blood Count 2.41 M/mm3 (4.2-5.4); White Blood Count 3.5 K/mm3 (4.4-11.0)
[2019-10-10 05:58] LABS: Differential Indicated SCAN CRITERIA MET
[2019-10-10 06:12] VITALS: BP 141/76; PULSE 82; RESP 20; TEMP 36.5; O2SAT 97
[2019-10-10] MEDS: Enoxaparin 40 MG/0.4 ML Syringe SC (06:15)
[2019-10-10 06:16] VITALS: PULSE 82
[2019-10-10 06:16] LABS: Anion Gap 5 (5-15); BUN 10 mg/dL (7-18); BUN/Creat Ratio 14.2 RATIO (10-20); Calcium,Total 8.1 mg/dL (8.5-10.1); Chloride 104 mmol/L (98-107); Creatinine, Serum 0.71 mg/dL (0.55-1.02); EST Glomerular Filtration Rate 87 mL/min (>60); Est Glom Filt Rate - Afr Amer 105 mL/min (>60); Estimated Creatinine Clearance 40.81 ml/min; Glucose 261 mg/dL (74-106); Potassium 3.7 mmol/L (3.5-5.1); Sodium Level 138 mmol/L (136-145)
[2019-10-10] MEDS: Metoprolol(XL)Succ 50 MG Tablet PO (06:16)
[2019-10-10] MEDS: Nystatin Powder 15gm Bottle 1 APPLIC TOPICAL ×2 (06:16→18:00)
[2019-10-10] MEDS: Cyanocobalamin 500 MCG Tablet PO ×2 (06:16→17:59)
[2019-10-10] MEDS: Magnesium Oxide 400 MG Tablet PO (06:16)
[2019-10-10] MEDS: Levothyroxine 100 MCG Tablet PO (06:16)
[2019-10-10] MEDS: Tamoxifen 10 MG Tablet 20 MG PO ×2 (06:16→17:59)
[2019-10-10] MEDS: Menthol/Lanolin/Calamine/Znox 113 GM Tube 1 APPLIC TOPICAL ×2 (06:17→18:00)
[2019-10-10 06:25] LABS: Bedside Glucose 262 mg/dL (70-110)
[2019-10-10 06:53] LABS: Atypical Lymphocyte 1+ %
[2019-10-10 06:54] LABS: Differential Comment SCANNED
[2019-10-10] MEDS: Aspirin 81 MG TAB.CHEW PO (08:38)
[2019-10-10] MEDS: Multivitamins,Therapeutic Tablet 1 TABLET PO (08:38)
[2019-10-10] MEDS: Glucerna Shake 120 ML LIQUID PO ×2 (08:38→12:36)
[2019-10-10] MEDS: Iron Polysaccharide Complex 150 MG CAPSULE PO (09:27)
[2019-10-10 10:55] LABS: Bedside Glucose 311 mg/dL (70-110)
[2019-10-10] MEDS: Tuberculin,Purif.prot.deriv. 50 TU/ML Vial 5 ML ID (11:14)
[2019-10-10] MEDS: Insulin Lispro 100 UNIT/ML INSULN.PEN 10 UNIT SC (13:29)
--- NOTE | 2019-10-10 14:51 | CHAPLAIN ---
Type of Pastoral Visit _x__ Initial Visit ___ Follow-up Visit ___ On-call Visit ___ General Patient Visit ___ Spiritual Assessment ___ Family Conference ___ Bereavement ___ Rapid Response ___ Code Blue ___ Other (describe below) Pastoral Care Referral From _x__ Patient ___ Family ___ Nurse ___ Physician ___ Regrader ___ Car Distributor ___ Other (describe below) Sacrament/Intervention _x__ Active listening ___ Anointing ___ Rastafari ___ Bereavement ___ Communion _x__ Irma exploration ___ _x__ Life review _x__ Prayer ___ Reconciliation ___ Sacrament of Sick _x__ Supportive presence ___ Wedding ___ Other (describe below) Pastoral Comments patient was in February and then her own health challenges and isolation during COVID have made this a difficult year, in her words; pt is member of a voodoo and requests that 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
[2019-10-10 15:17] VITALS: BP 148/68; PULSE 95; RESP 20; TEMP 36.6; O2SAT 96
[2019-10-10 17:06] LABS: Bedside Glucose 326 mg/dL (70-110)
[2019-10-10] MEDS: Insulin Lispro 100 UNIT/ML INSULN.PEN 20 UNIT SC (17:56)
[2019-10-10 21:26] LABS: Bedside Glucose 286 mg/dL (70-110)
[2019-10-11] MEDS: oxyCODONE 5 MG Tablet 2.5 MG PO (01:10)
[2019-10-11] MEDS: 0.9% Normal Saline 1,000 ML 75 ML IV ×2 (02:00→16:34)
[2019-10-11 05:11] VITALS: BP 139/93; PULSE 83; RESP 18; TEMP 37.2; O2SAT 95
[2019-10-11] MEDS: Senna/Docusate Sodium 1 Tablet PO ×2 (05:14→18:34)
[2019-10-11] MEDS: Magnesium Oxide 400 MG Tablet PO (05:14)
[2019-10-11] MEDS: Levothyroxine 100 MCG Tablet PO (05:14)
[2019-10-11] MEDS: Cyanocobalamin 500 MCG Tablet PO ×2 (05:14→18:38)
[2019-10-11 05:15] VITALS: BP 139/93; PULSE 83
[2019-10-11] MEDS: Tamoxifen 10 MG Tablet 20 MG PO ×2 (05:15→21:08)
[2019-10-11] MEDS: Metoprolol(XL)Succ 50 MG Tablet PO (05:15)
[2019-10-11] MEDS: Nystatin Powder 15gm Bottle 1 APPLIC TOPICAL ×2 (05:24→18:32)
[2019-10-11] MEDS: Menthol/Lanolin/Calamine/Znox 113 GM Tube 1 APPLIC TOPICAL ×2 (05:24→18:32)
[2019-10-11 06:11] LABS: Bedside Glucose 189 mg/dL (70-110)
[2019-10-11 07:55] VITALS: BP 138/67; PULSE 85
[2019-10-11] MEDS: Insulin Lispro 100 UNIT/ML INSULN.PEN 20 UNIT SC ×3 (08:38→18:31)
[2019-10-11] MEDS: Pantoprazole Sodium 20 MG Tablet PO (08:39)
[2019-10-11] MEDS: Glucerna Shake 120 ML LIQUID PO ×3 (08:39→18:30)
[2019-10-11] MEDS: Aspirin 81 MG TAB.CHEW PO (08:39)
[2019-10-11] MEDS: Multivitamins,Therapeutic Tablet 1 TABLET PO (08:39)
[2019-10-11] MEDS: Iron Polysaccharide Complex 150 MG CAPSULE PO (08:39)
[2019-10-11 12:01] LABS: Bedside Glucose 243 mg/dL (70-110)
--- NOTE | 2019-10-11 12:03 | PHA.CONS_ITS ---
<Rome Andrew D - Last Filed: 10/11/19 12:03> Progress Note - Pharmacy Subjective: TCU Admission Objective: Allergies lovastatin Adverse Reaction (Verified 10/06/19 13:41) MUSCLE CRAMPS IN LEGS nickel [Nickel] Adverse Reaction (Verified 10/06/19 13:41) Rash Current Medications Generic Name Dose Route Start Last Admin Trade Name Freq PRN Reason Stop Dose Admin Acetaminophen 1,000 mg 10/09/19 22:11 Tylenol PO Q6H PRN PRN Pain Score 1-3/10 Aspirin 81 mg 10/10/19 08:00 10/11/19 08:39 Aspirin, Baby PO 81 mg DAILY@0800 JOSÉ Administration Atorvastatin Calcium 20 mg 10/11/19 22:00 Lipitor PO QODAY@2200 [facility] Bisacodyl 10 mg 10/09/19 22:11 Dulcolax RECTAL DAILY PRN Constipation Calamine/Phenol 1 applic 10/10/19 06:00 10/11/19 05:24 Calmoseptine Ointment TOPICAL 1 applicatio BID JOSÉ Administration Protocol Cholecalciferol 5,000 unit 10/10/19 06:00 10/11/19 05:14 Vitamin D (25mcg) PO 5,000 unit DAILY JOSÉ Administration Cyanocobalamin 500 mcg 10/09/19 18:00 10/11/19 05:14 Vitamin B12 PO 500 mcg BID JOSÉ Administration Heparin Sodium (Beef Lung) 50 units 10/09/19 22:43 IV UD PRN Port-a-Cath (VAD)Heparin Flush Sodium Chloride 1,000 mls @ 75 mls/hr 10/09/19 21:55 10/11/19 02:00 IV 75 mls/hr .[id number] JOSÉ Administration Insulin Glargine 60 units 10/10/19 06:00 10/11/19 05:22 Lantus (Bkc) SC 60 units DAILY JOSÉ Administration Insulin Human Lispro 20 unit 10/11/19 06:45 10/11/19 08:38 Humalog Kwikpen (Bkc) SC 20 units TIDAC JOSÉ Administration Levothyroxine Sodium 100 mcg 10/10/19 06:00 10/11/19 05:14 Synthroid PO 100 mcg DAILY JOSÉ Administration Magnesium Oxide 400 mg 10/10/19 06:00 10/11/19 05:14 Mag-Ox 400 PO 400 mg DAILY JOSÉ Administration Meclizine HCl 25 mg 10/09/19 22:11 Antivert PO TID PRN PRN VERTIGO/DIZZINESS Metoprolol Succinate 50 mg 10/10/19 06:00 10/11/19 05:15 Toprol Xl (Beta Elle) PO 50 mg DAILY JOSÉ Administration Multivitamins 1 tablet 10/10/19 08:00 10/11/19 08:39 Multivitamin PO 1 tablet DAILYCM JOSÉ Administration Nutritional Formula (Lactose Free) 120 ml 10/11/19 07:45 10/11/19 08:39 Glucerna Shake PO 120 ml TIDCM JOSÉ Administration Nystatin 1 applic 10/10/19 06:00 10/11/19 05:24 Mycostatin Powder TOPICAL 1 applicatio BID [facility] Administration Protocol Oxycodone HCl 2.5 mg 10/09/19 22:10 10/11/19 01:10 Oxyir PO 2.5 mg Q4H PRN PRN Administration Pain Score 4-10/10 Pantoprazole Sodium 20 mg 10/11/19 10:00 10/11/19 08:39 Protonix PO 20 mg QODAY JOSÉ Administration Polyethylene Glycol 17 gm 10/10/19 06:00 10/11/19 05:14 Miralax PO Not Given DAILY [facility] Polysaccharide Iron Complex 150 mg 10/10/19 08:30 10/11/19 08:39 Ferrex 150 PO 150 mg DAILYCM [facility] Administration Senna/Docusate Sodium 1 tablet 10/10/19 06:00 10/11/19 05:14 Senokot-S, Estefania-Colace PO 1 tablet BID JOSÉ Administration Sodium Chloride 10 - 40 ml 10/09/19 22:43 10/10/19 00:08 IV 20 ml UD PRN Administration Port-a-Cath (VAD) Flush Sodium Chloride 10 - 40 ml 10/09/19 22:43 0.9% Nacl (Sterile) Posiflush IV UD PRN Port access or dressing change Tamoxifen Citrate 20 mg 10/09/19 18:00 10/11/19 05:15 Nolvadex PO 20 mg BID JOSÉ Administration Tuberculin PPD 5 tu 10/17/19 10:00 Tubersol, Aplisol, Ppd ID 10/17/19 10:01 X1 ONE Problem List (Last Reviewed 05/20/20 @ 10:02 by Adeline Meade) Debility (Acute) Dizziness (Acute) Orthostatic hypotension (Acute) BPPV (benign paroxysmal positional vertigo) (Chronic) Breast cancer metastasized to bone (Chronic) Obstructive sleep apnea (Chronic) GERD (gastroesophageal reflux disease) (Chronic) Hypomagnesemia (Chronic) B12 deficiency (Chronic) Vital Signs Temp Pulse Resp BP Pulse Ox 98.9 F 85 18 138/67 H 95 10/11/19 05:11 10/11/19 07:55 10/11/19 05:11 10/11/19 07:55 10/11/19 05:11 Oxygen Delivery Method Room Air Weight: 108.998 kg Body Mass Index (BMI) 43.9 Sodium 138 mmol/L (136-145) 10/10/19 05:15 Potassium 3.7 mmol/L (3.5-5.1) 10/10/19 05:15 Chloride 104 mmol/L (98-107) 10/10/19 05:15 Carbon Dioxide 29.0 mmol/L (21.0-32.0) 10/10/19 05:15 Anion Gap 5 (5-15) 10/10/19 05:15 BUN 10 mg/dL (7-18) 10/10/19 05:15 Creatinine 0.71 mg/dL (0.55-1.02) 10/10/19 05:15 Est GFR (MDRD) Af Amer 105 mL/min (>60) 10/10/19 05:15 Est GFR (MDRD) Non-Af 87 mL/min (>60) 10/10/19 05:15 BUN/Creatinine Ratio 14.2 RATIO (10-20) 10/10/19 05:15 Glucose 261 mg/dL (74-106) H 10/10/19 05:15 Assessment/Plan: 1) Pain APAP for pain score 1-3, oxycodone for pain 4-10. Continue to monitor daily pain scores, prn medication use. 2) CV/HLD/HTN ASA, atorvastatin, metoprolol XL. Continue to monitor lipids, s/s chest pain. 3) Breast Cancer Tamoxifen. Continue to monitor clinically. 4) HLD Levothyroxine. Continue to monitor s/s hyper/hypothyroidism. 5) DM2 Insulin glargine, lispro. Continue to monitor BGT, s/s hyper/hypoglycemia. 6) GI Pantoprazole. Continue to monitor for GI distress. 7) Nutrition MV, Mg, Fe, Glucerna, B12, D. Continue to monitor clinically. Psychotropic Medications: None Unnecessary Medications: None Bowel Regimen: 8) Senna/s, PEG, prn bisacodyl. Continue to monitor prn medication use, for constipation/diarrhea. Date of Note:: 10/11/19 - Provider Comments Provider responsibility: Provider responsible to enter orders to implement recommendations <Tim Mcarthur Chi - Last Filed: 10/11/19 13:12> Progress Note - Pharmacy Subjective: [] Objective: Allergies lovastatin Adverse Reaction (Verified 10/06/19 13:41) MUSCLE CRAMPS IN LEGS nickel [Nickel] Adverse Reaction (Verified 10/06/19 13:41) Rash Current Medications Generic Name Dose Route Start Last Admin Trade Name Freq PRN Reason Stop Dose Admin Acetaminophen 1,000 mg 10/09/19 22:11 Tylenol PO Q6H PRN PRN Pain Score 1-3/10 Aspirin 81 mg 10/10/19 08:00 10/11/19 08:39 Aspirin, Baby PO 81 mg DAILY@0800 JOSÉ Administration Atorvastatin Calcium 20 mg 10/11/19 22:00 Lipitor PO QODAY@2200 JOSÉ Bisacodyl 10 mg 10/09/19 22:11 Dulcolax RECTAL DAILY PRN Constipation Calamine/Phenol 1 applic 10/10/19 06:00 10/11/19 05:24 Calmoseptine Ointment TOPICAL 1 applicatio BID JOSÉ Administration Protocol Cholecalciferol 5,000 unit 10/10/19 06:00 10/11/19 05:14 Vitamin D (25mcg) PO 5,000 unit DAILY JOSÉ Administration Cyanocobalamin 500 mcg 10/09/19 18:00 10/11/19 05:14 Vitamin B12 PO 500 mcg BID JOSÉ Administration Heparin Sodium (Beef Lung) 50 units 10/09/19 22:43 IV UD PRN Port-a-Cath (VAD)Heparin Flush Sodium Chloride 1,000 mls @ 75 mls/hr 10/09/19 21:55 10/11/19 02:00 IV 75 mls/hr .[id number] JOSÉ Administration Insulin Glargine 60 units 10/10/19 06:00 10/11/19 05:22 Lantus ([facility]) SC 60 units DAILY JOSÉ Administration Insulin Human Lispro 20 unit 10/11/19 06:45 10/11/19 12:59 Humalog Kwikpen ([facility]) SC 20 units TIDAC JOSÉ Administration Levothyroxine Sodium 100 mcg 10/10/19 06:00 10/11/19 05:14 Synthroid PO 100 mcg DAILY JOSÉ Administration Magnesium Oxide 400 mg 10/10/19 06:00 10/11/19 05:14 Mag-Ox 400 PO 400 mg DAILY JOSÉ Administration Meclizine HCl 25 mg 10/09/19 22:11 Antivert PO TID PRN PRN VERTIGO/DIZZINESS Metoprolol Succinate 50 mg 10/10/19 06:00 10/11/19 05:15 Toprol Xl (Beta Elle) PO 50 mg DAILY JOSÉ Administration Multivitamins 1 tablet 10/10/19 08:00 10/11/19 08:39 Multivitamin PO 1 tablet DAILYCM JOSÉ Administration Nutritional Formula (Lactose Free) 120 ml 10/11/19 07:45 10/11/19 13:04 Glucerna Shake PO 120 ml TIDCM JOSÉ Administration Nystatin 1 applic 10/10/19 06:00 10/11/19 05:24 Mycostatin Powder TOPICAL 1 applicatio BID JOSÉ Administration Protocol Oxycodone HCl 2.5 mg 10/09/19 22:10 10/11/19 01:10 Oxyir PO 2.5 mg Q4H PRN PRN Administration Pain Score 4-10/10 Pantoprazole Sodium 20 mg 10/11/19 10:00 10/11/19 08:39 Protonix PO 20 mg QODAY JOSÉ Administration Polyethylene Glycol 17 gm 10/10/19 06:00 10/11/19 05:14 Miralax PO Not Given DAILY [facility] Polysaccharide Iron Complex 150 mg 10/10/19 08:30 10/11/19 08:39 Ferrex 150 PO 150 mg DAILYCM JOSÉ Administration Senna/Docusate Sodium 1 tablet 10/10/19 06:00 10/11/19 05:14 Senokot-S, Estefania-Colace PO 1 tablet BID JOSÉ Administration Sodium Chloride 10 - 40 ml 10/09/19 22:43 10/10/19 00:08 IV 20 ml UD PRN Administration Port-a-Cath (VAD) Flush Sodium Chloride 10 - 40 ml 10/09/19 22:43 0.9% Nacl (Sterile) Posiflush IV UD PRN Port access or dressing change Tamoxifen Citrate 20 mg 10/09/19 18:00 10/11/19 05:15 Nolvadex PO 20 mg BID JOSÉ Administration Tuberculin PPD 5 tu 10/17/19 10:00 Tubersol, Aplisol, Ppd ID 10/17/19 10:01 X1 ONE Problem List (Last Reviewed 06/26/19 @ 10:02 by Adeline Meade) Debility (Acute) Dizziness (Acute) Orthostatic hypotension (Acute) BPPV (benign paroxysmal positional vertigo) (Chronic) Breast cancer metastasized to bone (Chronic) Obstructive sleep apnea (Chronic) GERD (gastroesophageal reflux disease) (Chronic) Hypomagnesemia (Chronic) B12 deficiency (Chronic) Vital Signs Temp Pulse Resp BP Pulse Ox 98.9 F 85 18 138/67 H 95 10/11/19 05:11 10/11/19 07:55 10/11/19 05:11 10/11/19 07:55 10/11/19 05:11 Oxygen Delivery Method Room Air Weight: 108.998 kg Body Mass Index (BMI) 43.9 Sodium 138 mmol/L (136-145) 10/10/19 05:15 Potassium 3.7 mmol/L (3.5-5.1) 10/10/19 05:15 Chloride 104 mmol/L (98-107) 10/10/19 05:15 Carbon Dioxide 29.0 mmol/L (21.0-32.0) 10/10/19 05:15 Anion Gap 5 (5-15) 10/10/19 05:15 BUN 10 mg/dL (7-18) 10/10/19 05:15 Creatinine 0.71 mg/dL (0.55-1.02) 10/10/19 05:15 Est GFR (MDRD) Af Amer 105 mL/min (>60) 10/10/19 05:15 Est GFR (MDRD) Non-Af 87 mL/min (>60) 10/10/19 05:15 BUN/Creatinine Ratio 14.2 RATIO (10-20) 10/10/19 05:15 Glucose 261 mg/dL (74-106) H 10/10/19 05:15 Assessment/Plan: Psychotropic Medications: Unnecessary Medications: Bowel Regimen: - Provider Comments Provider responsibility: Provider responsible to enter orders to implement recommendations Provider Comments to Recommendations by Pharmacy: Agree
[2019-10-11 13:52] VITALS: BP 135/62; PULSE 84; RESP 16; TEMP 36.7; O2SAT 95
[2019-10-11 16:31] LABS: Bedside Glucose 334 mg/dL (70-110)
[2019-10-11] MEDS: Atorvastatin Calcium 20 MG Tablet PO (21:11)
[2019-10-11 22:10] LABS: Bedside Glucose 200 mg/dL (70-110)
[2019-10-12] MEDS: Acetaminophen 500 MG Tablet 1000 MG PO (01:00)
[2019-10-12] MEDS: 0.9% Normal Saline 1,000 ML 75 ML IV (04:20)
[2019-10-12 05:52] VITALS: BP 149/72; PULSE 78; RESP 16; TEMP 36.5; O2SAT 92
[2019-10-12 05:54] VITALS: BP 149/72; PULSE 78
[2019-10-12] MEDS: Senna/Docusate Sodium 1 Tablet PO ×2 (05:54→17:19)
[2019-10-12] MEDS: Levothyroxine 100 MCG Tablet PO (05:54)
[2019-10-12] MEDS: Cyanocobalamin 500 MCG Tablet PO ×2 (05:54→17:19)
[2019-10-12] MEDS: Tamoxifen 10 MG Tablet 20 MG PO ×2 (05:54→17:18)
[2019-10-12] MEDS: Magnesium Oxide 400 MG Tablet PO (05:54)
[2019-10-12] MEDS: Metoprolol(XL)Succ 50 MG Tablet PO (05:54)
[2019-10-12] MEDS: Nystatin Powder 15gm Bottle 1 APPLIC TOPICAL ×2 (05:55→17:14)
[2019-10-12] MEDS: Menthol/Lanolin/Calamine/Znox 113 GM Tube 1 APPLIC TOPICAL ×2 (05:56→17:13)
[2019-10-12 06:05] LABS: Bedside Glucose 121 mg/dL (70-110)
[2019-10-12 08:35] LABS: Hemoglobin 8.6 g/dL (12.0-15.0)
[2019-10-12] MEDS: Glucerna Shake 120 ML LIQUID PO (08:50)
[2019-10-12] MEDS: Iron Polysaccharide Complex 150 MG CAPSULE PO (08:50)
[2019-10-12] MEDS: Insulin Lispro 100 UNIT/ML INSULN.PEN 20 UNIT SC ×3 (08:50→17:47)
[2019-10-12] MEDS: Multivitamins,Therapeutic Tablet 1 TABLET PO (08:51)
[2019-10-12] MEDS: Aspirin 81 MG TAB.CHEW PO (08:51)
[2019-10-12 11:01] LABS: Bedside Glucose 233 mg/dL (70-110)
[2019-10-12 12:34] VITALS: PULSE 90; RESP 18; O2SAT 94
--- NOTE | 2019-10-12 15:15 | NURSING ---
per pt request, she wanted Port deaccessed. Stated the dressings applied to port area always irritate the port and she wanted them off. Port deaccessed and flushed with heparin
[2019-10-12 15:35] VITALS: BP 144/82; PULSE 90; RESP 18; TEMP 37; O2SAT 94
[2019-10-12 16:26] LABS: Bedside Glucose 167 mg/dL (70-110)
[2019-10-12 21:30] LABS: Bedside Glucose 162 mg/dL (70-110)
[2019-10-13 04:52] VITALS: BP 152/68; PULSE 97; RESP 18; TEMP 36.8; O2SAT 96
[2019-10-13 04:57] VITALS: PULSE 100
[2019-10-13] MEDS: Tamoxifen 10 MG Tablet 20 MG PO ×2 (04:57→17:51)
[2019-10-13] MEDS: Metoprolol(XL)Succ 50 MG Tablet PO (04:57)
[2019-10-13] MEDS: Levothyroxine 100 MCG Tablet PO (04:57)
[2019-10-13] MEDS: Nystatin Powder 15gm Bottle 1 APPLIC TOPICAL ×2 (04:58→17:51)
[2019-10-13] MEDS: Menthol/Lanolin/Calamine/Znox 113 GM Tube 1 APPLIC TOPICAL ×3 (04:58→20:48)
[2019-10-13] MEDS: Cyanocobalamin 500 MCG Tablet PO ×2 (04:59→17:51)
[2019-10-13] MEDS: Senna/Docusate Sodium 1 Tablet PO (04:59)
[2019-10-13] MEDS: Magnesium Oxide 400 MG Tablet PO (05:00)
[2019-10-13 06:20] LABS: Bedside Glucose 116 mg/dL (70-110)
[2019-10-13] MEDS: Pantoprazole Sodium 20 MG Tablet PO (08:59)
[2019-10-13] MEDS: Insulin Lispro 100 UNIT/ML INSULN.PEN 20 UNIT SC ×3 (09:00→17:49)
[2019-10-13] MEDS: Multivitamins,Therapeutic Tablet 1 TABLET PO (09:00)
[2019-10-13] MEDS: Iron Polysaccharide Complex 150 MG CAPSULE PO (09:00)
[2019-10-13] MEDS: Aspirin 81 MG TAB.CHEW PO (09:00)
[2019-10-13] MEDS: Glucerna Shake 120 ML LIQUID PO ×2 (11:02→17:51)
[2019-10-13 11:05] VITALS: PULSE 85; RESP 18; O2SAT 97
[2019-10-13 11:11] LABS: Bedside Glucose 222 mg/dL (70-110)
[2019-10-13 14:23] VITALS: BP 146/80; PULSE 85; RESP 18; TEMP 36.7; O2SAT 97
[2019-10-13 16:40] LABS: Bedside Glucose 261 mg/dL (70-110)
[2019-10-13] MEDS: Atorvastatin Calcium 20 MG Tablet PO (20:49)
[2019-10-13 21:16] LABS: Bedside Glucose 342 mg/dL (70-110)
[2019-10-13] MEDS: Acetaminophen 500 MG Tablet 1000 MG PO (23:13)
[2019-10-14 03:08] VITALS: BP 170/90; PULSE 83; RESP 16; TEMP 36.9; O2SAT 96
[2019-10-14 06:16] LABS: Bedside Glucose 182 mg/dL (70-110)
[2019-10-14] MEDS: Magnesium Oxide 400 MG Tablet PO (06:39)
[2019-10-14 06:40] VITALS: BP 170/90; PULSE 83
[2019-10-14] MEDS: Levothyroxine 100 MCG Tablet PO (06:40)
[2019-10-14] MEDS: Metoprolol(XL)Succ 50 MG Tablet PO (06:40)
[2019-10-14] MEDS: Cyanocobalamin 500 MCG Tablet PO ×2 (06:40→17:37)
[2019-10-14] MEDS: Tamoxifen 10 MG Tablet 20 MG PO ×2 (06:41→17:37)
[2019-10-14] MEDS: Nystatin Powder 15gm Bottle 1 APPLIC TOPICAL ×2 (06:43→17:41)
[2019-10-14] MEDS: Insulin Lispro 100 UNIT/ML INSULN.PEN 20 UNIT SC ×3 (08:19→17:36)
[2019-10-14] MEDS: Multivitamins,Therapeutic Tablet 1 TABLET PO (08:20)
[2019-10-14] MEDS: Aspirin 81 MG TAB.CHEW PO (08:20)
[2019-10-14] MEDS: Iron Polysaccharide Complex 150 MG CAPSULE PO (08:20)
[2019-10-14 10:50] LABS: Bedside Glucose 299 mg/dL (70-110)
[2019-10-14] MEDS: Glucerna Shake 120 ML LIQUID PO ×2 (11:52→17:36)
[2019-10-14 14:32] VITALS: BP 158/75; PULSE 104; RESP 14; TEMP 36.4; O2SAT 97
[2019-10-14 17:15] LABS: Bedside Glucose 190 mg/dL (70-110)
[2019-10-14] MEDS: Menthol/Lanolin/Calamine/Znox 113 GM Tube 1 APPLIC TOPICAL (17:41)
[2019-10-14 21:11] LABS: Bedside Glucose 231 mg/dL (70-110)
[2019-10-15] MEDS: Menthol/Lanolin/Calamine/Znox 113 GM Tube 1 APPLIC TOPICAL ×2 (04:42→19:58)
[2019-10-15] MEDS: Nystatin Powder 15gm Bottle 1 APPLIC TOPICAL ×2 (04:42→18:25)
[2019-10-15 04:43] VITALS: BP 142/79; PULSE 98; RESP 18; TEMP 36.9; O2SAT 98
[2019-10-15 04:49] VITALS: BP 142/79; PULSE 98
[2019-10-15] MEDS: Magnesium Oxide 400 MG Tablet PO (04:49)
[2019-10-15] MEDS: Cyanocobalamin 500 MCG Tablet PO ×2 (04:49→17:52)
[2019-10-15] MEDS: Metoprolol(XL)Succ 50 MG Tablet PO (04:49)
[2019-10-15] MEDS: Levothyroxine 100 MCG Tablet PO (04:50)
[2019-10-15] MEDS: Senna/Docusate Sodium 1 Tablet PO (04:50)
[2019-10-15] MEDS: Tamoxifen 10 MG Tablet 20 MG PO ×2 (04:52→17:51)
[2019-10-15 06:26] LABS: Bedside Glucose 157 mg/dL (70-110)
[2019-10-15] MEDS: Glucerna Shake 120 ML LIQUID PO (08:53)
[2019-10-15] MEDS: Insulin Lispro 100 UNIT/ML INSULN.PEN 20 UNIT SC ×3 (08:55→17:42)
[2019-10-15] MEDS: Pantoprazole Sodium 20 MG Tablet PO (08:56)
[2019-10-15] MEDS: Iron Polysaccharide Complex 150 MG CAPSULE PO (08:56)
[2019-10-15] MEDS: Aspirin 81 MG TAB.CHEW PO (08:56)
[2019-10-15] MEDS: Multivitamins,Therapeutic Tablet 1 TABLET PO (08:56)
[2019-10-15 11:10] LABS: Bedside Glucose 253 mg/dL (70-110)
[2019-10-15] MEDS: Acetaminophen 500 MG Tablet 1000 MG PO (13:04)
[2019-10-15 13:44] VITALS: BP 129/59; PULSE 85; RESP 16; TEMP 36.8; O2SAT 97
[2019-10-15 16:41] LABS: Bedside Glucose 127 mg/dL (70-110)
[2019-10-15] MEDS: Atorvastatin Calcium 20 MG Tablet PO (19:58)
[2019-10-15 22:25] LABS: Bedside Glucose 157 mg/dL (70-110)
[2019-10-16 05:48] VITALS: BP 154/69; PULSE 82; RESP 20; TEMP 36.4; O2SAT 93
[2019-10-16 06:05] VITALS: PULSE 82
[2019-10-16] MEDS: Levothyroxine 100 MCG Tablet PO (06:05)
[2019-10-16] MEDS: Metoprolol(XL)Succ 50 MG Tablet PO (06:05)
[2019-10-16] MEDS: Tamoxifen 10 MG Tablet 20 MG PO ×2 (06:05→17:53)
[2019-10-16] MEDS: Menthol/Lanolin/Calamine/Znox 113 GM Tube 1 APPLIC TOPICAL ×2 (06:05→17:54)
[2019-10-16] MEDS: Cyanocobalamin 500 MCG Tablet PO ×2 (06:05→17:53)
[2019-10-16] MEDS: Magnesium Oxide 400 MG Tablet PO (06:05)
[2019-10-16] MEDS: Nystatin Powder 15gm Bottle 1 APPLIC TOPICAL ×2 (06:06→17:53)
[2019-10-16 06:21] LABS: Bedside Glucose 120 mg/dL (70-110)
[2019-10-16] MEDS: Aspirin 81 MG TAB.CHEW PO (08:01)
[2019-10-16] MEDS: Iron Polysaccharide Complex 150 MG CAPSULE PO (08:01)
[2019-10-16] MEDS: Multivitamins,Therapeutic Tablet 1 TABLET PO (08:01)
[2019-10-16] MEDS: Insulin Lispro 100 UNIT/ML INSULN.PEN 20 UNIT SC ×3 (08:02→18:05)
[2019-10-16] MEDS: Glucerna Shake 120 ML LIQUID PO ×3 (08:02→17:54)
--- NOTE | 2019-10-16 09:38 | CASEMGMT ---
Social Work IDT met with patient and dtr for Team meeting. Discussed patient's progress in therapy. Pt is SBA for transfers, ambulating with and w/o an AD at 120 ft SBA. Pt is supervised for grooming, Perry for bathing for her feet, set up for UE dressing, Perry for LE dressing, SBA for toileting. Pt would like to be adlib in room to better gauge when she is ready to DC home. Therapy to further discuss goals with pt. Pt is on a cardiac heart healthy diet, 75-100% intake, receiving Glucerna and on a low sugar intake. Pt is out of room isolation 10/22. Explained Medicare benefit,. Pt has 4steps to enter home and was independent prior. Will continue to follow for DC planning. STEPH MorenoW
[2019-10-16 11:20] LABS: Bedside Glucose 146 mg/dL (70-110)
[2019-10-16 15:24] VITALS: BP 138/82; PULSE 83; RESP 16; TEMP 36.4; O2SAT 95
[2019-10-16 16:31] LABS: Bedside Glucose 279 mg/dL (70-110)
[2019-10-16 21:46] LABS: Bedside Glucose 226 mg/dL (70-110)
[2019-10-17 05:59] LABS: Absolute Neutrophil Count 1.7 X10^3/uL (2.0-7.7); Basophil# 0.02 X10^3/uL; Basophil% 0.5 % (0-1); Eosinophil# 0.03 X10^3/uL; Eosinophils% 0.7 % (0-5); Hematocrit 24.8 % (37-47); Hemoglobin 7.8 g/dL (12.0-15.0); Lymphocyte % 55.2 % (19-41); Mean Corp Hgb Conc 31.5 g/dL (32-36); Mean Corpuscular Hgb 33.1 pg (27.0-32.0); Mean Corpuscular Volume 105.1 fL (81-99); Mean Platelet Vol. 9.9 fl (6.2-12.0); Monocyte# 0.23 X10^3/uL; Monocyte% 5.3 % (0-10); NRBC Flagged by Analyzer 0.5 % (0-5); Neutrophil # 1.66 X10^3/uL (2.7-7.7); Neutrophil % 38.1 % (47-70); Platelet Count 181 K/mm3 (150-450); RBC Distribution Width CV 15.7 % (11.6-14.6); RBC Distribution Width SD 58.1 fl (35.1-43.9); Red Blood Count 2.36 M/mm3 (4.2-5.4); White Blood Count 4.4 K/mm3 (4.4-11.0)
[2019-10-17 06:21] LABS: Bedside Glucose 129 mg/dL (70-110)
[2019-10-17 06:30] VITALS: BP 135/58; PULSE 86; RESP 16; TEMP 36.4; O2SAT 92
[2019-10-17 06:31] VITALS: BP 135/58; PULSE 86
[2019-10-17] MEDS: Tamoxifen 10 MG Tablet 20 MG PO ×2 (06:31→17:37)
[2019-10-17] MEDS: Cyanocobalamin 500 MCG Tablet PO ×2 (06:31→17:37)
[2019-10-17] MEDS: Magnesium Oxide 400 MG Tablet PO (06:31)
[2019-10-17] MEDS: Metoprolol(XL)Succ 50 MG Tablet PO (06:31)
[2019-10-17] MEDS: Levothyroxine 100 MCG Tablet PO (06:31)
[2019-10-17] MEDS: Senna/Docusate Sodium 1 Tablet PO (06:31)
[2019-10-17 06:33] LABS: Anion Gap 5 (5-15); BUN 17 mg/dL (7-18); BUN/Creat Ratio 25.1 RATIO (10-20); Calcium,Total 8.4 mg/dL (8.5-10.1); Chloride 105 mmol/L (98-107); Creatinine, Serum 0.68 mg/dL (0.55-1.02); EST Glomerular Filtration Rate 91 mL/min (>60); Est Glom Filt Rate - Afr Amer 110 mL/min (>60); Estimated Creatinine Clearance 40.81 ml/min; Glucose 122 mg/dL (74-106); Potassium 3.9 mmol/L (3.5-5.1); Sodium Level 141 mmol/L (136-145)
[2019-10-17] MEDS: Insulin Lispro 100 UNIT/ML INSULN.PEN 20 UNIT SC ×3 (09:05→17:35)
[2019-10-17] MEDS: Iron Polysaccharide Complex 150 MG CAPSULE PO (09:06)
[2019-10-17] MEDS: Pantoprazole Sodium 20 MG Tablet PO (09:06)
[2019-10-17] MEDS: Glucerna Shake 120 ML LIQUID PO (09:06)
[2019-10-17] MEDS: Multivitamins,Therapeutic Tablet 1 TABLET PO (09:06)
[2019-10-17] MEDS: Aspirin 81 MG TAB.CHEW PO (09:06)
[2019-10-17] MEDS: Nystatin Powder 15gm Bottle 1 APPLIC TOPICAL ×2 (09:07→17:36)
[2019-10-17] MEDS: Menthol/Lanolin/Calamine/Znox 113 GM Tube 1 APPLIC TOPICAL ×2 (09:07→20:59)
[2019-10-17 11:16] LABS: Bedside Glucose 257 mg/dL (70-110)
[2019-10-17] MEDS: Tuberculin,Purif.prot.deriv. 50 TU/ML Vial 5 ML ID (11:39)
--- NOTE | 2019-10-17 13:07 | CASEMGMT ---
Social Work Spoke with pt about request to DC. IDT agreeable to 10/18. Explained outpatient and HHC- pt chose HHC due to COVID. Pt agreeable to [facility]. Referral made for PT/OT. No DME needs. Plan: DC home 10/18 with [facility] PT.OT Ester Osorio, STEPH BIGGSW
[2019-10-17 14:11] VITALS: BP 120/57; PULSE 92; RESP 16; TEMP 36.8; O2SAT 94
[2019-10-17 16:11] LABS: Bedside Glucose 216 mg/dL (70-110)
--- NOTE | 2019-10-17 19:54 | PCM.DC ---
- Discharge Diagnoses Current Active Problems: Current Active and Chronic Problems (Last Reviewed 06/26/19 @ 10:02 by Adeline Meade) Debility (Acute) Dizziness (Acute) Orthostatic hypotension (Acute) BPPV (benign paroxysmal positional vertigo) (Chronic) Breast cancer metastasized to bone (Chronic) Obstructive sleep apnea (Chronic) GERD (gastroesophageal reflux disease) (Chronic) Hypomagnesemia (Chronic) B12 deficiency (Chronic) You will use the following diet at home:: No restrictions, Regular Your food should be the consistency of: Regular Your liquids should be the consistency of: Regular/Thin Discharge Activity: Return to Normal Activity, May Shower, Use Walker Weight Bearing Status: Weight bearing as tolerated Call your doctor if you observe: Fever of 101 or Higher, Inability to urinate, Inability to have a bowel movement, Shortness of breath, Chest pain, Uncontrolled pain Allergies/Adverse Reactions: Allergies lovastatin Adverse Reaction (Verified 10/06/19 13:41) MUSCLE CRAMPS IN LEGS nickel [Nickel] Adverse Reaction (Verified 10/06/19 13:41) Rash Medications to take at Discharge Aspirin [Aspirin, Baby] 81 mg PO DAILY@0800 07/30/13 Meclizine HCl [Antivert] 12.5 mg PO DAILY PRN PRN 07/30/13 Cholecalciferol (VIT D3) [Vitamin D3] 5,000 unit PO DAILY 03/24/14 Rosuvastatin Calcium [Crestor] 10 mg PO QODAY 03/24/14 Levothyroxine [Synthroid] 100 mcg PO DAILY 09/08/14 Multivitamins,Therapeutic [Multivitamin] 1 tab PO DAILY 09/08/14 Omeprazole [Prilosec] 20 mg PO QODAY 01/05/15 Vitamin B-12 500 mg PO BID 10/06/19 Magnesium Oxide [Mag-Ox 400] 400 mg PO DAILY 10/09/19 Metoprolol(XL)Succ [Toprol Xl (Beta Elle)] 50 mg PO DAILY 10/09/19 Tamoxifen Citrate [Nolvadex] 20 mg PO BID 10/09/19 Acetaminophen [Tylenol] 1,000 mg PO Q6H PRN PRN tablet 10/17/19 Insulin Glargine [Lantus SoloStar Pen] 60 units SUBCUT DAILY #1 pen 10/17/19 Insulin Lispro [Humalog KwikPen] 20 unit SUBCUT TIDAC #1 insuln.pen 10/17/19 Iron Polysaccharide Complex [Ferrex 150] 150 mg PO DAILYCM #30 cap 10/17/19 Menthol/Lanolin/Calamine/Znox [Calmoseptine Ointment] 1 applic TOPICAL BID tube 10/17/19 Nystatin Powder [Mycostatin Powder] 1 applic TOPICAL BID bottle 10/17/19 The following prescriptions were given: Iron Polysaccharide Complex [Ferrex 150] 150 mg PO DAILYCM #30 cap Transmission Status: Pending to [facility]/pharmacy #[id number] Insulin Lispro [Humalog KwikPen] 20 unit SUBCUT TIDAC #1 insuln.pen Transmission Status: Pending to [facility]/pharmacy #[id number] Insulin Glargine [Lantus SoloStar Pen] 60 units SUBCUT DAILY #1 pen Transmission Status: Pending to [facility]/pharmacy #[id number] Primary Care Physician: Camelia Hess, [Primary Care Provider] - Please follow up with your Primary Care Physician in: 1 week. Test Results: Test results from this visit will be discussed in further detail at your follow-up appointment, if applicable. Please Follow Up With: Camelia Estrada Proposed Discharge Date: 10/19/19
--- NOTE | 2019-10-17 19:56 | PCM.DC.SUM ---
Discharge Date and Diagnosis - Problem List Patient Problems: Active and Suspected Problems (Last Reviewed 06/26/19 @ 10:02 by Adeline Meade) Debility (Acute) Dizziness (Acute) Orthostatic hypotension (Acute) Date of Admission: 10/09/19 Date of Discharge: 10/19/19 - Primary Discharge Diagnosis Acute Problems: Active Problems (Last Reviewed 06/26/19 @ 10:02 by Adeline Meade) Debility (Acute) Dizziness (Acute) Orthostatic hypotension (Acute) - Secondary Discharge Diagnosis Chronic Problems: Chronic Problems (Last Reviewed 06/26/19 @ 10:02 by Adeline Meade) BPPV (benign paroxysmal positional vertigo) (Chronic) Breast cancer metastasized to bone (Chronic) Obstructive sleep apnea (Chronic) GERD (gastroesophageal reflux disease) (Chronic) Hypomagnesemia (Chronic) B12 deficiency (Chronic) HTN (hypertension) (Chronic) H/O BREAST CANCER (Chronic) Diabetes mellitus (Chronic) Obesities, morbid (Chronic) CLL (chronic lymphocytic leukemia) (Chronic) Hyperlipidemia (Chronic) Hypothyroid (Chronic) H/O cancer of uterus (Chronic) Breast cancer, right breast (Chronic) Stage IV carcinoma of breast (Chronic) Cancer, metastatic to bone (Chronic) Lump of right breast (Chronic) Breast density (Chronic) Hospital Course and Treatment Imaging Results: 10/16/19 08:08 Diet: Carbohydrate Controlled Food consistency:: Regular Liquid Consistency:: Regular/Thin Dietary Modifications:: Cardiac / Heart Healthy Is pt able to select menu?: Yes Labs (Last 48 Hours) 10/15/19 10/16/19 10/16/19 22:20 06:17 11:14 WBC RBC Hgb Hct MCV MCH MCHC RDW Std Deviation RDW Coeff of Janet Plt Count MPV Immature Gran % (Auto) Neut % (Auto) Lymph % (Auto) [place] % (Auto) Eos % (Auto) Baso % (Auto) Absolute Neuts (auto) Absolute Lymphs (auto) Nucleated RBC % Sodium Potassium Chloride Carbon Dioxide Anion Gap BUN Creatinine Estim Creat Clear Calc Est GFR (MDRD) Af Amer Est GFR (MDRD) Non-Af BUN/Creatinine Ratio Glucose Calcium POC Glucose 157 H 120 H 146 H 10/16/19 10/16/19 10/17/19 16:27 21:33 05:31 WBC 4.4 RBC 2.36 L Hgb 7.8 L Hct 24.8 L MCV 105.1 H MCH 33.1 H MCHC 31.5 L RDW Std Deviation 58.1 H RDW Coeff of Janet 15.7 H Plt Count 181 MPV 9.9 Immature Gran % (Auto) 0.200 Neut % (Auto) 38.1 L Lymph % (Auto) 55.2 H [place] % (Auto) 5.3 Eos % (Auto) 0.7 Baso % (Auto) 0.5 Absolute Neuts (auto) 1.7 L Absolute Lymphs (auto) 2.40 Nucleated RBC % 0.5 Sodium Potassium Chloride Carbon Dioxide Anion Gap BUN Creatinine Estim Creat Clear Calc Est GFR (MDRD) Af Amer Est GFR (MDRD) Non-Af BUN/Creatinine Ratio Glucose Calcium POC Glucose 279 H 226 H 10/17/19 10/17/19 10/17/19 05:31 06:05 11:09 WBC RBC Hgb Hct MCV MCH MCHC RDW Std Deviation RDW Coeff of Janet Plt Count MPV Immature Gran % (Auto) Neut % (Auto) Lymph % (Auto) [place] % (Auto) Eos % (Auto) Baso % (Auto) Absolute Neuts (auto) Absolute Lymphs (auto) Nucleated RBC % Sodium 141 Potassium 3.9 Chloride 105 Carbon Dioxide 31.0 Anion Gap 5 BUN 17 Creatinine 0.68 Estim Creat Clear Calc 40.81 Est GFR (MDRD) Af Amer 110 Est GFR (MDRD) Non-Af 91 BUN/Creatinine Ratio 25.1 H Glucose 122 H Calcium 8.4 L POC Glucose 129 H 257 H 10/17/19 16:02 WBC RBC Hgb Hct MCV MCH MCHC RDW Std Deviation RDW Coeff of Janet Plt Count MPV Immature Gran % (Auto) Neut % (Auto) Lymph % (Auto) [place] % (Auto) Eos % (Auto) Baso % (Auto) Absolute Neuts (auto) Absolute Lymphs (auto) Nucleated RBC % Sodium Potassium Chloride Carbon Dioxide Anion Gap BUN Creatinine Estim Creat Clear Calc Est GFR (MDRD) Af Amer Est GFR (MDRD) Non-Af BUN/Creatinine Ratio Glucose Calcium POC Glucose 216 H Operations: None Procedures: None Summary of Care Provided: The patient is a 73 year old Female with below past medical history hospitalized for dizziness, posterior circulation stroke ruled out, either BPPV or mild orthostatic hypotension, admitted to TCU with debility, here for rehabilitation, strengthening, prior to discharge home alone. [] Discharge home alone, [facility] PT/OT. Patient Problems: Active and Suspected Problems (Last Reviewed 06/26/19 @ 10:02 by Adeline Meade) Debility (Acute) Dizziness (Acute) Orthostatic hypotension (Acute) - Physical Exam Vitals/I&O's: Vital Signs Temp Pulse Resp BP Pulse Ox 98.3 F 92 16 120/57 L 94 10/17/19 14:11 10/17/19 14:11 10/17/19 14:11 10/17/19 14:11 10/17/19 14:11 Oxygen Delivery Method Room Air Weight: 108.919 kg Body Mass Index (BMI) 43.9 Intake and Output for Last 24 Hours 10/15/19 10/16/19 10/17/19 23:59 23:59 23:59 Intake Total 720 / 720 720 / 720 960 / 960 Balance 720 / 720 720 / 720 960 / 960 Laboratory Results 10/16/19 21:33: POC Glucose 226 H 10/17/19 05:31: WBC 4.4, RBC 2.36 L, Hgb 7.8 L, Hct 24.8 L, MCV 105.1 H, MCH 33.1 H, MCHC 31.5 L, RDW Std Deviation 58.1 H, RDW Coeff of Janet 15.7 H, Plt Count 181, MPV 9.9, Immature Gran % (Auto) 0.200, Neut % (Auto) 38.1 L, Lymph % (Auto) 55.2 H, [place] % (Auto) 5.3, Eos % (Auto) 0.7, Baso % (Auto) 0.5, Absolute Neuts (auto) 1.7 L, Absolute Lymphs (auto) 2.40, Nucleated RBC % 0.5 10/17/19 05:31: Sodium 141, Potassium 3.9, Chloride 105, Carbon Dioxide 31.0, Anion Gap 5, BUN 17, Creatinine 0.68, Estim Creat Clear Calc 40.81, Est GFR (MDRD) Af Amer 110, Est GFR (MDRD) Non-Af 91, BUN/Creatinine Ratio 25.1 H, Glucose 122 H, Calcium 8.4 L 10/17/19 06:05: POC Glucose 129 H 10/17/19 11:09: POC Glucose 257 H 10/17/19 16:02: POC Glucose 216 H Current Medications Acetaminophen (Tylenol) 1,000 mg PO Q6H PRN PRN PRN Reason: Pain Score 1-3/10 Last Admin: 10/15/19 13:04 Dose: 1,000 mg Documented by: Aspirin (Aspirin, Baby) 81 mg PO DAILY@0800 [facility] Last Admin: 10/17/19 09:06 Dose: 81 mg Documented by: Atorvastatin Calcium (Lipitor) 20 mg PO QODAY@2200 [facility] Last Admin: 10/15/19 19:58 Dose: 20 mg Documented by: Bisacodyl (Dulcolax) 10 mg RECTAL DAILY PRN PRN Reason: Constipation Calamine/Phenol (Calmoseptine Ointment) 1 applic TOPICAL BID [facility]; Protocol Last Admin: 10/17/19 09:07 Dose: 1 applicatio Documented by: Cholecalciferol (Vitamin D (25mcg)) 5,000 unit PO DAILY [facility] Last Admin: 10/17/19 06:31 Dose: 5,000 unit Documented by: Cyanocobalamin (Vitamin B12) 500 mcg PO BID [facility] Last Admin: 10/17/19 17:37 Dose: 500 mcg Documented by: Heparin Sodium (Beef Lung) () 50 units IV UD PRN PRN Reason: Port-a-Cath (VAD)Heparin Flush Insulin Glargine (Lantus (Bkc)) 60 units SC DAILY [facility] Last Admin: 10/17/19 06:33 Dose: 60 u Documented by: Insulin Human Lispro (Humalog Kwikpen (Bkc)) 20 unit SC TIDAC [facility] Last Admin: 10/17/19 17:35 Dose: 20 units Documented by: Levothyroxine Sodium (Synthroid) 100 mcg PO DAILY [facility] Last Admin: 10/17/19 06:31 Dose: 100 mcg Documented by: Magnesium Oxide (Mag-Ox 400) 400 mg PO DAILY [facility] Last Admin: 10/17/19 06:31 Dose: 400 mg Documented by: Meclizine HCl (Antivert) 25 mg PO TID PRN PRN PRN Reason: VERTIGO/DIZZINESS Metoprolol Succinate (Toprol Xl (Beta Elle)) 50 mg PO DAILY [facility] Last Admin: 10/17/19 06:31 Dose: 50 mg Documented by: [facility] Admin: 10/17/19 09:06 Dose: 1 tablet Documented by: Nutritional Formula (Lactose Free) (Glucerna Shake) 120 ml PO TIDCM [facility] Last Admin: 10/17/19 17:36 Dose: Not Given Documented by: Nystatin (Mycostatin Powder) 1 applic TOPICAL BID [facility]; Protocol Last Admin: 10/17/19 17:36 Dose: 1 applicatio Documented by: Oxycodone HCl (Oxyir) 2.5 mg PO Q4H PRN PRN PRN Reason: Pain Score 4-11/15 Last Admin: 10/11/19 01:10 Dose: 2.5 mg Documented by: Pantoprazole Sodium (Protonix) 20 mg PO QODAY [facility] Last Admin: 10/17/19 09:06 Dose: 20 mg Documented by: Polyethylene Glycol (Miralax) 17 gm PO DAILY [facility] Last Admin: 10/17/19 06:32 Dose: Not Given Documented by: Polysaccharide Iron [facility] ([facility]rex 150) [facility] Last Admin: 10/17/19 09:06 Dose: 150 mg Documented by: Senna/Docusate Sodium (Senokot-S, Estefania-Colace) 1 tablet PO BID [facility] Last Admin: 10/17/19 17:37 Dose: Not Given Documented by: Sodium Chloride () 10 - 40 ml IV UD PRN PRN Reason: Port-a-Cath (VAD) Flush Last Admin: 10/10/19 00:08 Dose: 20 ml Documented by: Sodium Chloride (0.9% Nacl (Sterile) Posiflush) 10 - 40 ml IV UD PRN PRN Reason: Port access or dressing change Tamoxifen Citrate (Nolvadex) 20 mg PO BID [facility] Last Admin: 10/17/19 17:37 Dose: 20 mg Documented by: Discharge Diet: No Restrictions Discharge Activity: Return to Normal Activity, May Shower, Use Walker Weight Bearing Status: Weight bearing as tolerated Call your doctor if you observe: Fever of 101 or Higher, Inability to urinate, Inability to have a bowel movement, Shortness of breath, Chest pain, Uncontrolled pain Home Medications: Medications to take at Discharge Aspirin [Aspirin, Baby] 81 mg PO DAILY@0800 07/30/13 Meclizine HCl [Antivert] 12.5 mg PO DAILY PRN PRN 07/30/13 Cholecalciferol (VIT D3) [Vitamin D3] 5,000 unit PO DAILY 03/24/14 Rosuvastatin Calcium [Crestor] 10 mg PO QODAY 03/24/14 Levothyroxine [Synthroid] 100 mcg PO DAILY 09/08/14 Multivitamins,Therapeutic [Multivitamin] 1 tab PO DAILY 09/08/14 Omeprazole [Prilosec] 20 mg PO QODAY 01/05/15 Vitamin B-12 500 mg PO BID 10/06/19 Magnesium Oxide [Mag-Ox 400] 400 mg PO DAILY 10/09/19 Metoprolol(XL)Succ [Toprol Xl (Beta Elle)] 50 mg PO DAILY 10/09/19 Tamoxifen Citrate [Nolvadex] 20 mg PO BID 10/09/19 Acetaminophen [Tylenol] 1,000 mg PO Q6H PRN PRN tablet 10/17/19 Insulin Glargine [Lantus SoloStar Pen] 60 units SUBCUT DAILY #1 pen 10/17/19 Insulin Lispro [Humalog KwikPen] 20 unit SUBCUT TIDAC #1 insuln.pen 10/17/19 Iron Polysaccharide Complex [Ferrex 150] 150 mg PO DAILYCM #30 cap 10/17/19 Menthol/Lanolin/Calamine/Znox [Calmoseptine Ointment] 1 applic TOPICAL BID tube 10/17/19 Nystatin Powder [Mycostatin Powder] 1 applic TOPICAL BID bottle 10/17/19 Following Prescriptions Were Given to Patient: Iron Polysaccharide Complex [Ferrex 150] 150 mg PO DAILYCM #30 cap Transmission Status: Pending to [facility]/pharmacy #[id number] Insulin Lispro [Humalog KwikPen] 20 unit SUBCUT TIDAC #1 insuln.pen Transmission Status: Pending to [facility]pharmacy #[id number] Insulin Glargine [Lantus SoloStar Pen] 60 units SUBCUT DAILY #1 pen Transmission Status: Pending to [facility]/pharmacy #[id number] Primary Care Physician: Camelia Hess DO [Primary Care Provider] - Please follow up with your Primary Care Physician in: 1 week. Please Follow Up With: Camelia Estrada Disposition: Home with Home Health Minutes spent on discharge:: 35 Patient Condition:: Stable Medical Necessity - Tobacco Use Smoking Status: Never smoker Tobacco Use: Non-smoker Meaningful Use Info Meaningful Use Diagnoses (Choose all that apply): None applicable
[2019-10-17] MEDS: Atorvastatin Calcium 20 MG Tablet PO (20:58)
[2019-10-17 21:26] LABS: Bedside Glucose 204 mg/dL (70-110)
[2019-10-18 05:47] LABS: Hematocrit 24.4 % (37-47); Hemoglobin 7.5 g/dL (12.0-15.0)
[2019-10-18 06:26] LABS: Bedside Glucose 172 mg/dL (70-110)
[2019-10-18] MEDS: Levothyroxine 100 MCG Tablet PO (06:34)
[2019-10-18] MEDS: Magnesium Oxide 400 MG Tablet PO (06:34)
[2019-10-18 06:35] VITALS: BP 144/68; PULSE 87
[2019-10-18] MEDS: Metoprolol(XL)Succ 50 MG Tablet PO (06:35)
[2019-10-18] MEDS: Tamoxifen 10 MG Tablet 20 MG PO ×2 (06:35→18:20)
[2019-10-18] MEDS: Cyanocobalamin 500 MCG Tablet PO ×2 (06:35→18:20)
[2019-10-18 06:52] VITALS: RESP 18; TEMP 37.1; O2SAT 98
[2019-10-18] MEDS: Aspirin 81 MG TAB.CHEW PO (08:49)
[2019-10-18] MEDS: Multivitamins,Therapeutic Tablet 1 TABLET PO (08:49)
[2019-10-18] MEDS: Insulin Lispro 100 UNIT/ML INSULN.PEN 20 UNIT SC ×3 (08:49→18:29)
[2019-10-18] MEDS: Iron Polysaccharide Complex 150 MG CAPSULE PO (08:49)
[2019-10-18 11:01] LABS: Bedside Glucose 227 mg/dL (70-110)
--- NOTE | 2019-10-18 16:22 | NURSING ---
Patient complained of burning, pressure and urinary frequency. Notified Dr. Mcarthur. Given order for clean catch urine. Specimen sent to lab at this time.
[2019-10-18 16:40] LABS: Bedside Glucose 272 mg/dL (70-110)
[2019-10-18] MEDS: Menthol/Lanolin/Calamine/Znox 113 GM Tube 1 APPLIC TOPICAL (18:20)
[2019-10-18] MEDS: Nystatin Powder 15gm Bottle 1 APPLIC TOPICAL (18:20)
[2019-10-18 18:23] LABS: Bacteria 0 SEEN /hpf (None Seen); Mucous, Urine 0 SEEN /hpf (<or=2+); Red Blood Cells-Urine 0 SEEN /hpf (0-5)
[2019-10-18 18:25] LABS: Color, Urine Yellow (Yellow); Glucose, Dipstick 250 mg/dl (Normal); Ketone-Dipstick Negative (Negative); Leukocyte Esterase-Dipstick 500 /ul (Negative); Nitrite-Dipstick Negative (Negative); Occult Blood-Urine 25 /ul (Negative); Protein-Dipstick 15 mg/dl (Negative); Urine Bilirubin Dipstick Negative (Negative); Urine Clarity Cloudy (Clear); Urine Urobilinogen Normal (Normal)
[2019-10-18 19:02] LABS: Squamous Epithelial Cells - UA 0-5 SEEN /hpf (5-10); White Blood Cells >100 SEEN /hpf (0-5)
[2019-10-18 19:18] VITALS: BP 140/68; PULSE 78; RESP 16; TEMP 36.6; O2SAT 96
[2019-10-18] MEDS: Ciprofloxacin 500 MG Tablet PO (21:24)
[2019-10-19] MEDS: Acetaminophen 500 MG Tablet 1000 MG PO (01:05)
[2019-10-19 06:03] VITALS: BP 169/69; PULSE 79
[2019-10-19] MEDS: Metoprolol(XL)Succ 50 MG Tablet PO (06:03)
[2019-10-19] MEDS: Ciprofloxacin 500 MG Tablet PO (06:03)
[2019-10-19] MEDS: Tamoxifen 10 MG Tablet 20 MG PO (06:03)
[2019-10-19] MEDS: Cyanocobalamin 500 MCG Tablet PO (06:03)
[2019-10-19] MEDS: Levothyroxine 100 MCG Tablet PO (06:03)
[2019-10-19] MEDS: Magnesium Oxide 400 MG Tablet PO (06:03)
[2019-10-19] MEDS: Menthol/Lanolin/Calamine/Znox 113 GM Tube 1 APPLIC TOPICAL (06:04)
[2019-10-19 06:11] VITALS: BP 169/69; PULSE 79; RESP 16; TEMP 36.6; O2SAT 98
[2019-10-19] MEDS: Nystatin Powder 15gm Bottle 1 APPLIC TOPICAL (06:11)
[2019-10-19 06:25] LABS: Bedside Glucose 155 mg/dL (70-110)
[2019-10-19] MEDS: Multivitamins,Therapeutic Tablet 1 TABLET PO (08:38)
[2019-10-19] MEDS: Iron Polysaccharide Complex 150 MG CAPSULE PO (08:38)
[2019-10-19] MEDS: Aspirin 81 MG TAB.CHEW PO (08:38)
[2019-10-19] MEDS: Insulin Lispro 100 UNIT/ML INSULN.PEN 20 UNIT SC (08:38)
[2019-10-19] MEDS: Pantoprazole Sodium 20 MG Tablet PO (08:38)
[2019-10-19 09:03] VITALS: PULSE 85; RESP 16; O2SAT 98
[2019-10-19 09:49] VITALS: BP 151/62; PULSE 91; RESP 16; TEMP 36.6; O2SAT 98
--- NOTE | 2019-10-21 10:43 | MDS.RN ---
Information for the mds was obtained from review of the clinical record, interview of resident, staff, and direct observation of resident's care.
== END 2019-10-19 10:15 | disposition home health service (06) | DRG 149 ==
PROVIDERS: Admitting Provider Family Medicine Geriatric Medicine; Visit Provider Family Medicine Geriatric Medicine
DX: H81.10 Benign paroxysmal vertigo, unspecified ear (principal); C79.51 Secondary malignant neoplasm of bone; C91.10 Chronic lymphocytic leukemia of B-cell type not having achieved remission; Z68.41 Body mass index [BMI] 40.0-44.9, adult; I95.1 Orthostatic hypotension; E55.9 Vitamin D deficiency, unspecified; E78.5 Hyperlipidemia, unspecified; E03.9 Hypothyroidism, unspecified; E11.9 Type 2 diabetes mellitus without complications; K21.9 Gastro-esophageal reflux disease without esophagitis; B35.4 Tinea corporis; I10 Essential (primary) hypertension; G47.33 Obstructive sleep apnea (adult) (pediatric); E53.8 Deficiency of other specified B group vitamins; Z85.3 Personal history of malignant neoplasm of breast; E66.01 Morbid (severe) obesity due to excess calories
CPT/HCPCS: 36415; 80048; 81001; 82962; 85014; 85018; 85025; 87077; 87086; 87088; 87186; 87635; 97110; 97116; 97162; 97166; 97530; 97535; 97802; C9803; J7030; A4216; U0003

== ENCOUNTER → 2019-12-02 | Outpatient (CLI) | payer MEDICARE, OTHER, SELFPAY ==
[2017-05-30 11:02] VITALS: BMI 46.8
== END | disposition home or self-care (01) ==
PROVIDERS: Visit Provider Nurse Practitioner Adult Health
DX: N39.0 Urinary tract infection, site not specified (principal)
CPT/HCPCS: 87086; 87088; 87186

== ENCOUNTER → 2020-07-03 08:45 | Outpatient (CLI) | payer MEDICARE, OTHER, SELFPAY ==
[2017-05-30 11:02] VITALS: BMI 46.8
[2020-02-17 13:12] VITALS: BMI 44.6
--- NOTE | 2020-07-03 08:46 | NM_ITS ---
CLINICAL: 74-year-old female with reported history of carcinoma of the breast metastatic to bone. WHOLE BODY 99m Tc MDP RADIONUCLIDE BONE SCINTIGRAPHY COMPARISON: Previous whole body bone scintigraphy study dated 01/23/2019 FINDINGS: Following the intravenous administration of 24.6 mCi of 99m Tc MDP, whole body bone images reveal: 1. Increased radiopharmaceutical concentration is both newly defined and persistently visualized in the appendicular and axial skeletal structures to include the right posterior seventh-ninth ribs, left posterior seventh and 11th ribs, first-second lumbar, eighth-10th and 12th thoracic vertebra, right iliac wing, the distal femoral diaphysis bilaterally, the left proximal femoral diaphysis, the left mid humeral diaphysis. 2. Facilitated uptake is presently visualized in the right ankle, left midfoot, acromioclavicular and glenohumeral compartments of both shoulders, bilateral knee articulations, fourth-fifth lumbar vertebra. 3. The remaining skeletal structures are scintigraphically unremarkable with normal-appearing renal images and urinary bladder activity identified. NM/Bone Scan Whole Body IMPRESSION: 1. The increase in radiotracer distribution currently and persistently defined in the appendicular, axial skeleton is commensurate with osseous metastatic disease. 2. Degenerative arthritis appears expressed in the right ankle, left midfoot, bilateral shoulders, right and left knees, lower lumbar spine. 3. Overall compared to the previous whole body bone scintigraphy study dated 01/23/2019, there is apparent interval progression of defined skeletal metastatic disease. Electronically Signed: Salvador Garcia DO at 22:50 EDT Tel , Service support ,
== END ==
PROVIDERS: Referring Provider Internal Medicine Medical Oncology; Visit Provider Internal Medicine Medical Oncology
DX: C50.411 Malignant neoplasm of upper-outer quadrant of right female breast (principal); C79.51 Secondary malignant neoplasm of bone
CPT/HCPCS: 78306; A9503

== ENCOUNTER → 2020-07-16 13:12 | Outpatient (CLI) | payer MEDICARE, OTHER, SELFPAY ==
[2017-05-30 11:02] VITALS: BMI 46.8
[2020-07-08 14:50] VITALS: BMI 46.0
--- NOTE | 2020-07-16 13:17 | CT_ITS ---
STUDY: CT CHEST, ABDOMEN T PELVIS WITH CONTRAST REASON FOR EXAM: Female, 74 years old. Assess response to treatment. History of breast cancer with bone metastasis. Prior left lumpectomy. History of uterine carcinoma. RADIATION DOSAGE (If Supplied By Facility): CTDIvol = ( 20.68 ) mGy, DLP = ( 3223.05 ) mGycm TECHNIQUE: Transaxial imaging was performed following intravenous administration of IV 100mL Isovue-300. Individualized dose optimization techniques were used for this CT. COMPARISON: Comparison is made with prior CT scan of the chest dated 12/21/2016. FINDINGS: CHEST Small bilateral axillary lymph nodes. Increased linear markings in the medial aspect of the left upper lobe suggestive of scarring. Mild increased markings in the posterior medial segment of the right lower lobe suggestive of scarring. There is no demonstrated pleural abnormality. There are calcifications of the coronary arteries. There are multiple small lymph nodes within the mediastinum, which are normal in size and morphology most compatible with reactive lymph hyperplasia. Normal hilar regions. Normal unenhanced pulmonary arteries. Normal aorta arch and descending thoracic aorta. There is evidence of diffuse mixed sclerotic and lytic metastatic disease involving the entire thoracic and visualized portions of the lumbar spine as well as the ribs and sternum. Diffuse fatty infiltration of the liver. ABDOMEN There is hepatomegaly with diffuse hepatic enlargement. The gallbladder is contracted. 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 Normal spleen. There is diffuse atrophy of the pancreas. Normal bilateral adrenal glands. Normal right kidney. There is a marked degree of left hydronephrosis and mild hydroureter. Left perinephric stranding. Normal visualized stomach. Normal small intestine. There are multiple colonic diverticula consistent with diverticulosis. The appendix is visualized and appears normal. There is diffuse atherosclerotic calcification of the abdominal aorta and its major visceral branches, without a demonstrated aneurysm. Normal inferior vena cava. Normal retroperitoneum. Normal abdominal wall. There are diffuse degenerative changes of the visualized lumbar spine. Diffuse bony metastasis involving the lumbar vertebrae as well as the pelvic bones. PELVIS Normal urinary bladder. Patient is status post hysterectomy. CT/CT Chest, Abd, Pel w/Contrast IMPRESSION: Diffuse bony metastasis. Marked degree of left hydronephrosis and mild degree of left hydroureter to the midportion of the ureter. No obstructive uropathy is seen at this time. There is evidence of perinephric stranding on the left side. Electronically Signed: José Miguel Davila MD at 15:05 EDT , Service support ,
[2020-07-16] MEDS: 0.9% Saline Lock 10 ML Syringe IV (13:45)
== END ==
PROVIDERS: Referring Provider Nurse Practitioner Family; Visit Provider Nurse Practitioner Family
DX: C50.411 Malignant neoplasm of upper-outer quadrant of right female breast (principal); C79.51 Secondary malignant neoplasm of bone
CPT/HCPCS: 71260; 74177; Q9967; A4216

== ENCOUNTER → 2020-12-24 | Outpatient (CLI) | payer MEDICARE, OTHER, SELFPAY ==
[2017-05-30 11:02] VITALS: BMI 46.8
== END | disposition home or self-care (01) ==
LOC: LABSPEC 17:03
PROVIDERS: Visit Provider Urology
DX: N39.0 Urinary tract infection, site not specified (principal)
CPT/HCPCS: 87086; 87088; 87186

== ENCOUNTER 2021-05-25 12:37 | Emergency (ER) | payer MEDICARE, OTHER, SELFPAY ==
[2017-05-30 11:02] VITALS: BMI 46.8
[2021-05-25 12:38] VITALS: BP 202/86; PULSE 95; RESP 18; TEMP 36.8; O2SAT 94; BMI 46.5
[2021-05-25] MEDS: Ondansetron 4 MG/2 ML Vial IV (13:20)
[2021-05-25] MEDS: Morphine 4 MG/ML Syringe IV ×2 (13:20→15:54)
--- NOTE | 2021-05-25 13:21 | EDS_ITS ---
HPI History of Present Illness Chief Complaint: Weakness Informant: patient Narrative Narrative: Patient presents secondary to severe back and hip pain and inability to ambulate. Patient has metastatic breast cancer to the bone. She was last seen by Dr. Arango in March. She is currently on hydrocodone 3 times a day. She states pain has become severe and she is now unable to get out of bed or care for herself. She is not interested in chemotherapy or further radiation. She prefers just to get a good pain regimen to enjoy what time she has left. She denies fever or chills. [facility] Medical History Diabetes History of breast cancer Hypercholesteremia left leg fx repair Sleep apnea Vertigo Home Medications aspirin 81 mg PO DAILY@0800 07/30/13 [History Last Taken Unknown] meclizine 12.5 mg PO DAILY PRN PRN 07/30/13 [History Last Taken Unknown] cholecalciferol (vitamin D3) 5,000 unit PO DAILY 03/24/14 [History Last Taken Unknown] rosuvastatin 20 mg PO QODAY 03/24/14 [History Last Taken Unknown] levothyroxine 112 mcg PO DAILY 09/08/14 [History Last Taken Unknown] multivitamin with folic acid 1 tab PO DAILY 09/08/14 [History Last Taken Unknown] omeprazole 20 mg PO QODAY 01/05/15 [History Last Taken Unknown] Vitamin B-12 1,000 mg PO TID 10/06/19 [History Last Taken Unknown] magnesium oxide 500 mg PO DAILY 10/09/19 [History Last Taken Unknown] metoprolol succinate 50 mg PO DAILY 10/09/19 [History Last Taken Unknown] insulin aspart U-100 20 units SC TIDCM 02/17/20 [History Last Taken Unknown] insulin detemir U-100 60 units SC DAILY 02/17/20 [History Last Taken Unknown] enalapril maleate 20 mg tablet 1 tablet PO DAILY 03/17/21 [History Last Taken Unknown] nitrofurantoin monohydrate/macrocrystals 100 mg capsule 1 cap PO QHS 03/17/21 [History Last Taken Unknown] ferrous sulfate 27 mg PO DAILY 05/25/21 [History Last Taken Unknown] hydrocodone-acetaminophen 1 tab PO Q8H PRN PRN 05/25/21 [History Last Taken Unknown] Allergy/AdvReac Type Severity Reaction Status Date / Time lovastatin AdvReac MUSCLE Verified 05/25/21 12:38 CRAMPS IN LEGS nickel [Nickel] AdvReac Rash Verified 05/25/21 12:38 Family History Father Heart disease Hypertension Mother Rheumatoid arthritis Skin cancer Brother Melanoma Surgical History H/O arthroscopy of left knee H/O breast surgery H/O: hysterectomy H/O: hysterectomy History of cataract extraction History of right breast biopsy (~06/19/18) Hx of cholecystectomy S/P lumpectomy, right breast Social History Smoking Status: Never smoker alcohol intake: never substance use type: does not use ROS ROS ED Constitutional Constitutional ED: Denies chills or fever(s) Eyes Eyes: Denies change in vision ENT ENT ED: Denies sore throat Cardiovascular Cardiovascular: Denies chest pain Respiratory/Chest Respiratory/Chest: Denies cough or dyspnea Gastrointestinal Gastrointestinal: Denies abdominal pain, nausea or vomiting Musculoskeletal Musculoskeletal: Reports arthralgias, back pain and myalgias Integumentary Denies rash Neurologic Neurologic: Denies headache(s) Allergic/Immunologic Allergic/Immunologic ED: Denies urticaria EXAM Physical Exam Const Vital Signs: 05/25/21 12:38 05/25/21 12:43 05/25/21 14:52 Temperature 98.2 F Temperature Source Oral Pulse Rate 95 94 Respiratory Rate 18 18 Respiratory Effort Normal Non-Labored Respiratory Pattern Normal Blood Pressure 202/86 H 155/64 H Blood Pressure Mean 124 94 Pulse Ox 94 98 Oxygen Delivery Method Room Air Nasal Cannula Oxygen Flow Rate (L/min) 2 Positive well nourished and well developed General Appearance ED: well developed HEENT Reports moist mucous membranes Eyes PERRL and EOMs intact bilaterally Neck supple Chest Wall inspection of chest normal and palpation of chest normal Resp normal respiratory effort and clear to auscultation bilaterally Cardio regular rate GI non-tender Palpation: soft Neuro oriented x3 Neuro Narrative: Moves all 4 extremities. Sensorium / Orientation: alert Psych Mood & Affect: tearful Skin no rashes or lesions noted MDM MDM MDM Narrative Medical decision making narrative: Patient is given morphine and Zofran for pain control. She does not want further work-up for her cancer. She is not interested in palliative radiation. She just wants a decent pain regimen to help control her symptoms. I did suggest hospice care to her as they help significantly with pain management. She is interested in this. Treatment and Re-Evaluation Narrative: Hospice came and saw the patient in the emergency room and met with family. Plan will be transferred to the [facility] to get her symptoms under control at this time. She will be given an additional dose of morphine for the transfer. Discharge Plan Triage Chief Complaint: Weakness Other Complaint: Other, Pain/Inj ED Provider: Lakesha Foster Dx/Rx/DC Orders Clinical Impression: Metastatic breast cancer Instructions: ED Pain Management: Chronic Prescriptions: No Action nitrofurantoin monohyd/m-cryst 100 mg capsule 1 cap PO QHS RF: 0 enalapril maleate 20 mg tablet 1 tablet PO DAILY RF: 0 aspirin 81 MG tablet,chewable 81 mg PO DAILY@0800 RF: 0 meclizine 12.5 MG tablet 12.5 mg PO DAILY PRN PRN (Reason: Dizziness) RF: 0 rosuvastatin 20 MG tablet 20 mg PO QODAY RF: 0 cholecalciferol (vitamin D3) 1,000 UNIT tablet 5,000 unit PO DAILY RF: 0 levothyroxine 75 MCG tablet 112 mcg PO DAILY RF: 0 multivitamin with folic acid 1 TABLET tablet 1 tab PO DAILY RF: 0 omeprazole 20 MG capsule 20 mg PO QODAY RF: 0 insulin aspart U-100 100 UNITS/ML insulin pen 20 units SC TIDCM RF: 0 insulin detemir U-100 100 UNITS/ML insulin pen 60 units SC DAILY RF: 0 Vitamin B-12 1,000 mg PO TID RF: 0 metoprolol succinate 50 MG tablet 50 mg PO DAILY RF: 0 magnesium oxide 400 MG tablet 500 mg PO DAILY RF: 0 hydrocodone-acetaminophen 7.5-325 mg tablet 1 tab PO Q8H PRN PRN (Reason: Pain) RF: 0 ferrous sulfate 27 mg iron Tablet 27 mg PO DAILY RF: 0 Primary Care Provider: Camelia Hess Referrals: Cmaelia Hess, [Primary Care Provider] - Disposition Disposition: Hospice in Medical Facility Discharge Location: [facility]
--- NOTE | 2021-05-25 14:14 | CM.ED ---
Social Work Telephone call from [facility], [place]. Radha Burrows reports to have called family and to have an appointment set up to meet with family today at 15:00 in the ED to discuss patient care and possible hospice options. Medical team updated. Dr. Foster was aware of referral. Will continue to follow as needed. Deshawn Rodriguez MSW, RACHEAL
[2021-05-25 14:52] VITALS: BP 155/64; PULSE 94; RESP 18; O2SAT 98
[2021-05-25 16:13] VITALS: RESP 18
--- NOTE | 2021-05-25 16:16 | ED.RN ---
REPORT CALLED TO MARVIN BROWN ON [facility].
== END 2021-05-25 16:16 | disposition hospice, inpatient (51) ==
PROVIDERS: Emergency Provider Emergency Medicine; Visit Provider Emergency Medicine
DX: C50.919 Malignant neoplasm of unspecified site of unspecified female breast (principal); C79.51 Secondary malignant neoplasm of bone; E11.9 Type 2 diabetes mellitus without complications; Z79.4 Long term (current) use of insulin; E78.00 Pure hypercholesterolemia, unspecified; Z79.82 Long term (current) use of aspirin; Z79.899 Other long term (current) drug therapy
CPT/HCPCS: 96374; 96375; 96376; 99285; A4216; J2405